=== PATIENT | male | born 1960 | race Caucasian/White ===

== ENCOUNTER 2017-10-03 19:28 | Emergency (ER) | payer OTHER, SELFPAY ==
[2017-10-03 19:30] VITALS: BP 162/110; PULSE 112; RESP 28; TEMP 37.2; O2SAT 97; BMI 25.3
--- NOTE | 2017-10-03 19:32 | ED.RN ---
RN CALLED FOR EKG, NO OLD EKGS IN MUSE
[2017-10-03 19:59] VITALS: O2SAT 97
[2017-10-03 20:02] VITALS: PULSE 99; RESP 20; O2SAT 98
[2017-10-03] MEDS: Ipratropium/Albuterol Sulfate 3 ML AMPUL.NEB INHALATION (20:02)
[2017-10-03 20:04] VITALS: BP 146/116; PULSE 100; RESP 17; RESP 21; O2SAT 97; O2SAT 98
[2017-10-03 20:22] LABS: Absolute Lymphocyte Count 1.15 X10^3/ul (0.83-4.51); Absolute Neutrophil Count 7.1 X10^3/uL (2.0-7.7); Basophil# 0.04 X10^3/uL; Basophil% 0.4 % (0-1); Eosinophil# 0.05 X10^3/uL; Eosinophils% 0.5 % (0-5); Hematocrit 44.9 % (40-54); Hemoglobin 15.2 g/dl (13.0-16.5); Lymphocyte # 1.15 X10^3/ul (4.0); Lymphocyte % 12.6 % (19-41); Mean Corp Hgb Conc 33.9 g/gl (32-36); Mean Corpuscular Hgb 27.2 pg (27.0-32.0); Mean Corpuscular Volume 80.3 fL (80-94); Mean Platelet Vol. 10.3 fl (6.2-12.0); Monocyte# 0.73 X10^3/uL; Neutrophil # 7.11 X10^3/uL (2.7-7.7); Neutrophil % 78.2 % (47-70); POSITIVE COUNT NO; POSITIVE DIFFERENTIAL NO; POSITIVE MORPHOLOGY NO; Platelet Count 309 K/mm3 (150-450); RBC Distribution Width CV 15.3 % (11.6-14.6); RBC Distribution Width SD 44.5 fl (35.1-43.9); Red Blood Count 5.59 M/mm3 (4.6-6.2); White Blood Count 9.1 K/mm3 (4.4-11.0)
[2017-10-03 20:29] LABS: Anion Gap 12 (5-15); BUN 8 mg/dL (7-18); BUN/Creat Ratio 8.5 RATIO (10-20); Calcium,Total 8.9 mg/dL (8.5-10.1); Chloride 109 mmol/L (98-107); Creatinine, Serum 0.94 mg/dL (0.70-1.30); EST Glomerular Filtration Rate 88 mL/min (>60); Est Glom Filt Rate - Afr Amer 106 mL/min (>60); Estimated Creatinine Clearance 81.06 ml/min; Glucose 160 mg/dL (74-106); Potassium 4.2 mmol/L (3.5-5.1); Sodium Level 142 mmol/L (136-145)
[2017-10-03] MEDS: 0.9% Normal Saline 1,000 ML 999 ML IV (20:55)
[2017-10-03] MEDS: MethylPREDNISolone 125 MG/2 ML Vial IV (20:55)
--- NOTE | 2017-10-03 21:27 | ED.DCSUM_ITS ---
- ER Visit Summary Date of Service: 10/03/17 Chief Complaint: Shortness of breath History of Present Illness: The patient is a [address] Rondon. He denies a history of COPD, but he does smoke a pack per day for many years. He reports he has shortness of breath began approximately 10 days ago. Is severe at worst moderate currently. Is worsened by exertion and laying flat. He has a cough is productive white/clear sputum. He denies any fever or chills. Reports he is less sided chest pain that is intermittent and lasts seconds at a time. Physical Examination: Vitals: Stable. Afebrile. General: Well-nourished and well-developed. Head: Normocephalic atraumatic. Neck: Supple, no lymphadenopathy. No JVD. Nontender. Cardiovascular: Regular rate and rhythm. No murmurs. Respiratory: No respiratory distress. Mild wheezing bilaterally with greatly decreased air movement. Abdominal: Soft, nontender, nondistended, normal bowel sounds. No guarding, rebound, or peritoneal signs. Back: Nontender. Extremities: Nontender, no edema. Skin: Normal color, no rash. Neurologic: Alert and oriented ?3. Cranial nerves II through XII are intact. Normal strength and sensation. Psych: Normal affect. Test Results: Chest x-ray shows chronic interstitial changes. EKG is sinus tach [address] changes. CBC is more for segment for 70 lymphs at 13. Chem-7 more for quite a 109 glucose 160. Emergency Department Course and Treatment: Patient was treated albuterol Atrovent aerosols with great relief of his dyspnea. He was given Solu-Medrol IV and doxycycline p.o. Treatment Plan: Clinically I believe the patient has COPD. He will be treated as a COPD flare. He will be discharged on albuterol MDI and a prednisone taper. Placed on doxycycline instructed follow-up his primary care physician 3- 5 days not improving. Return to the emergency department for any worsening symptoms. Disposition: To home in improved and stable condition. Impression: 1. COPD exacerbation. This note was generated with [employer] dictation software. It may contain incorrect words, spelling, and punctuation that were not noted in review of the chart prior to signing ED Disposition - Plan for ED Patient: Disposition: Home or Assisted Living Chief Complaint: Shortness of Breath Instructions: ED Upper Resp Infec Abx Tx Prescriptions: Prednisone 10 mg PO DAILY #63 tablet Doxycycline Monohydrate 100 mg PO BID #14 capsule Referrals: Kojo Rondon MD [NON-STAFF] - 3-5 Days if not improving
[2017-10-03] MEDS: Doxycycline 100 MG CAPSULE PO (22:07)
[2017-10-03] MEDS: INHALER, ASSIST DEVICES 1 EACH SPACER INHALATION (22:08)
[2017-10-03 22:12] VITALS: BP 148/11; BP 148/111; PULSE 95; PULSE 98; RESP 23; O2SAT 97
== END 2017-10-03 22:10 | disposition home or self-care (01) ==
PROVIDERS: Emergency Provider Emergency Medicine
DX: J44.1 Chronic obstructive pulmonary disease with (acute) exacerbation (principal); F17.200 Nicotine dependence, unspecified, uncomplicated; I10 Essential (primary) hypertension
CPT/HCPCS: 71045; 80048; 85025; 93005; 94640; 96361; 96374; 99284; J7030; A4216

== ENCOUNTER 2017-11-19 20:41 | Inpatient (IN) | payer OTHER, SELFPAY ==
[2017-11-19 20:43] VITALS: BP 140/105; PULSE 88; RESP 24; TEMP 36.7; O2SAT 92; BMI 25.0
--- NOTE | 2017-11-19 21:01 | EKG12_ITS ---
Test Reason : SOB Blood Pressure : / mmHG Vent. Rate : 082 BPM Atrial Rate : 082 BPM P-R Int : 140 ms QRS Dur : 102 ms QT Int : 420 ms P-R-T Axes : 080 000 133 degrees QTc Int : 490 ms Normal sinus rhythm Possible Left atrial enlargement Cannot rule out Anterior infarct , age undetermined T wave abnormality, consider lateral ischemia Abnormal ECG Confirmed by YARELI DURAN, PHILIP ([id number]), editor at large JEYSON GUTIERREZ ([id number]) on 11/24/2017 3:58:22 PM Referred By: DANG Confirmed By:PHILIP DOWNS MD
--- NOTE | 2017-11-19 21:25 | RAD_ITS ---
STUDY: X-RAY CHEST REASON FOR EXAM: Male, 57 years old. SOB, bloating. TECHNIQUE: PA and lateral chest. COMPARISON: 10/03/2017. FINDINGS: The lungs are clear and expanded. There is a small right pleural effusion. There is mild cardiac enlargement. Normal mediastinum and yeni. Normal visualized pulmonary arteries. Normal visualized aortic arch and descending thoracic aorta. Normal visualized thoracic spine. Normal visualized ribs, clavicles, and shoulders. There is no demonstrated abnormality of the visualized soft tissue structures of the upper abdomen. RAD/Chest PA and Lateral IMPRESSION: Small right pleural effusion. Otherwise, no acute process. Electronically Signed: Jodi Upton MD at 21:53 EDT Tel , Service support ,
[2017-11-19 21:47] VITALS: O2SAT 97
--- NOTE | 2017-11-19 22:20 | CT_ITS ---
STUDY: CT ABDOMEN AND PELVIS WITH CONTRAST REASON FOR EXAM: Male, 57 years old. Upper abdominal pain. Short of breath. RADIATION DOSAGE (If Supplied By Facility): CTDIvol = ( 24.27 ) mGy, DLP = ( 1103.54 ) mGycm TECHNIQUE: Transaxial images were obtained from the dome of the diaphragm to the symphysis pubis without oral contrast. 100ML ml of Isovue 300 contrast was administered. Sagittal and coronal images were reconstructed. Individualized dose optimization techniques were used for this CT. COMPARISON: None. FINDINGS: Limited views through the lower chest show small right pleural effusion. Mild atelectasis is seen in both posterior lung bases. There is slus-ki-paxyzvvw cardiomegaly. There is ascites in all quadrants of moderate quantity. Possible fatty infiltration of the liver. There is hepatomegaly. There are no definite focal masses. Moderate distention of the gallbladder. No stones. Mild gallbladder wall thickening. Prominent pericholecystic edema. Normal pancreas. Normal spleen. Adrenal glands within normal limits. No acute abnormality of the kidneys. No definite stones. No hydronephrosis. Symmetric contrast enhancement. Evaluation of the GI tract is limited by absence of oral contrast. Cannot exclude stomach wall thickening. No dilated loops of bowel or evidence for obstruction. Cannot exclude segmental thickening of the dempsey of the small or large bowel. Cannot exclude enteritis or colitis. Moderate diffuse fecal retention. Diverticulosis without definite diverticulitis. Appendix within normal limits. There is diffuse atherosclerotic calcification of the abdominal aorta, without a demonstrated aneurysm. Normal inferior vena cava. There is borderline retroperitoneal lymphadenopathy with enlarged nodes no greater than 10mm in the short axis diameter. Possible diffuse thickening of the wall of the urinary bladder. There is enlargement of the prostate gland. Anasarca of the abdominal wall. There are diffuse degenerative changes of the visualized lumbar spine. CT/Abdomen/Pelvis W IV Cont ONLY IMPRESSION: Moderate diffuse ascites. Hepatomegaly. Suboptimal evaluation of the GI tract without oral contrast. Cannot exclude enteritis or colitis. Small right pleural effusion. Electronically Signed: Ramos Chen MD at 23:29 EDT , Service support ,
[2017-11-19 22:33] LABS: Absolute Lymphocyte Count 0.94 X10^3/ul (0.83-4.51); Absolute Neutrophil Count 7.2 X10^3/uL (2.0-7.7); Basophil# 0.04 X10^3/uL; Basophil% 0.4 % (0-1); Eosinophil# 0.02 X10^3/uL; Eosinophils% 0.2 % (0-5); Hematocrit 49.3 % (40-54); Hemoglobin 16.1 g/dl (13.0-16.5); Lymphocyte # 0.94 X10^3/ul (4.0); Lymphocyte % 10.5 % (19-41); Mean Corp Hgb Conc 32.7 g/gl (32-36); Mean Corpuscular Hgb 26.4 pg (27.0-32.0); Mean Corpuscular Volume 80.8 fL (80-94); Mean Platelet Vol. 10.6 fl (6.2-12.0); Monocyte# 0.63 X10^3/uL; Monocyte% 7.1 % (0-10); Neutrophil % 80.7 % (47-70); Platelet Count 327 K/mm3 (150-450); RBC Distribution Width CV 17.2 % (11.6-14.6); RBC Distribution Width SD 49.3 fl (35.1-43.9); White Blood Count 8.9 K/mm3 (4.4-11.0)
[2017-11-19 22:35] LABS: POSITIVE COUNT NO; POSITIVE DIFFERENTIAL NO; POSITIVE MORPHOLOGY NO
[2017-11-19 22:41] VITALS: O2SAT 97
[2017-11-19 22:51] LABS: ALB/GLOB Ratio 1.1 RATIO (0.9-2.4); AST(SGOT) 61 U/L (15-37); Alanine Aminotransfer ALT/SGPT 64 U/L (16-61); Albumin, Serum 3.4 g/dL (3.2-5.0); Alkaline Phosphatase 95 U/L (45-117); Anion Gap 9 (5-15); BUN 18 mg/dL (7-18); BUN/Creat Ratio 11.5 RATIO (10-20); Calcium,Total 8.2 mg/dL (8.5-10.1); Chloride 107 mmol/L (98-107); Creatinine, Serum 1.56 mg/dL (0.70-1.30); EST Glomerular Filtration Rate 49 mL/min (>60); Est Glom Filt Rate - Afr Amer 59 mL/min (>60); Estimated Creatinine Clearance 48.85 ml/min; Globulin 3.1 g/dL (2.2-4.2); Glucose 127 mg/dL (74-106); Lipase 90 U/L (73-393); Potassium 4.5 mmol/L (3.5-5.1); Protein, Total 6.5 g/dL (6.4-8.2); Sodium Level 138 mmol/L (136-145); Thyroid Stim Hormone (TSH) 3.16 uIU/mL (0.358-3.74)
[2017-11-19 23:15] VITALS: BP 135/100; PULSE 87; RESP 21; O2SAT 99
[2017-11-19] MEDS: Furosemide 40 MG/4 ML Vial IV (23:19)
--- NOTE | 2017-11-19 23:25 | ED.DCSUM_ITS ---
- ER Visit Summary Date of Service: 11/19/17 Chief Complaint: [Shortness of breath] History of Present Illness: The patient is a 57 M [presents the emergency department complaint of shortness of breath that he said for over 3 months. Patient states that he does have a cough that he sat chronically but he is a smoker. Patient also describes abdominal distention and bloating. Patient describes ankle swelling. Patient apparently oftentimes will sleep in a chair because he has a hard time laying flat. Patient states that he wakes up after an hour or 2 feeling short of breath frequently. Patient complains of exertional dyspnea. He denies any chest pain. He denies recent travel or surgery. He has not had fevers.] Physical Examination: [HEENT-PERRLA, EOMI. Cranial nerves II through XII grossly intact. TMs clear. Mucous membranes moist. No adenopathy. She does have JVD Cardiovascular-regular rate and rhythm without murmur or ectopy Lungs-breath sounds bilaterally. Patient has rales in both bases. No accessory muscle use or retractions. Abdomen-normoactive bowel sounds. Patient has distention and fluid wave noted. Mild diffuse tenderness. There is no rebound, rigidity, or perineal signs. Extremities-intact ?4, normal range of motion, normal pulses, atraumatic]. Patient has +2 edema both lower extremities. Patient does have cellulitis of the right lower extremity from below the knee down to the foot. He is neurovascular intact. Test Results: [EKG obtained on arrival shows sinus rhythm with a ventricular rate of 82 bpm with left atrial enlargement and nonspecific ST changes noted laterally. CBC with differential obtained showed a white count of 8.9, hemoglobin 16, hematocrit 49, platelets 327. Chemistries unremarkable. Liver enzymes showed slight elevation in ALT at 64 and AST at 61. TSH was 3.16. Lactic acid was 2.0. Troponin was elevated slightly at 0.057 and his BNP was 1591. Chest x-ray obtained showed a small right pleural effusion and cardiomegaly. CT scan of the abdomen and pelvis awaiting official report from radiology but the patient is noted to have ascites] Emergency Department Course and Treatment: [She was started on Lasix 40 mg IV.] Patient was started on Unasyn 3 g IV Treatment Plan: [Admit] Disposition: [Admit for further workup and evaluation] Impression: [CHF-new onset Cellulitis right lower extremity] Non-ST KS This note was generated with [employer] dictation software. It may contain incorrect words, spelling, and punctuation that were not noted in review of the chart prior to signin ED Disposition - Plan for ED Patient: Chief Complaint: Shortness of Breath Referrals: Kojo Rondon MD [Primary Care Provider] -
--- NOTE | 2017-11-19 23:36 | HP.PCM_ITS ---
Problem List (1) Shortness of breath Status: Acute (2) Lower extremity edema Status: Acute (3) Bilateral lower extremity edema Status: Acute History of Present Illness Date of Admission: 11/20/17 Chief Complaint: Shortness of breath, bilateral lower extremity edema. The patient is a 57 year old M was admitted through the ED on 11/19/2017 with a complaint of worsening shortness of breath for the past 3 months and lower extremity swelling for the past month. Shortness of breath had progressively been getting worse, with associated orthopnea and PND. His lower extremity swelling which started K[place] have progressively gotten worse and he was having difficulty with getting out of his chair to walk around. He had associated exertional dyspnea as well. Patient also complained of abdominal distention and significant epigastric pain which she attributed to gas and was sometimes relieved by having a bowel movement. He denied any fever or chills and denied any chest pain, recent travel or surgery or any history of DVT or PE. EKG done in the ED showed normal sinus rhythm with left atrial enlargement and T wave inversions in the lateral leads. CBC was unremarkable and chemistries were unremarkable. BNP was thousand 591 and troponin was slightly elevated at 0.057. Chest x-ray done showed small right pleural effusion and cardiomegaly and chest CT of the abdomen and pelvis showed ascites and hepatomegaly as well as a small right pleural effusion. He has been admitted to be managed for new onset CHF exacerbation.. [] Past Medical History Allergies No Known Allergies Allergy (Verified 11/19/17 20:44) Home Medications: Ambulatory Orders Medication Instructions Recorded Aspirin [Aspirin EC] 3 tab PO DAILY PRN 11/19/17 Metoprolol Tartrate [Lopressor 0.5 tablet PO DAILY 11/19/17 (beta agapito)] Surgical History: no surgical history Psychiatric History: No pertinent psych hx Lives: Spouse/ Significant Other Smoking Status: Current every day smoker Tobacco Use: Cigarettes - 2 packs daily Alcohol: Occasional Drugs: Marijuana - *Family History Maternal History Items: Heart Disease Paternal History Items: Cancer, Heart Disease, Hypertension Review of Systems Constitutional: Denies: Chills, Fever, Malaise, Weight Change Eyes: Denies: Blurred vision HEENT: Denies: Head Aches, Sinus Congestion, Sinus Drainage Cardiovascular: Reports: Edema, Orthopnea, Paroxysmal Noc. Dyspnea. Denies: Chest Pain, Chest Pressure, Chest Tightness, Palpitations, Syncope Respiratory: Reports: Shortness of Breath, Shortness of breath at rest, Shortness of breath upon exertion. Denies: Cough, Hemoptysis, Pleuritic Pain, Sputum production, Wheezing Gastrointestinal: Reports: Abdominal Pain. Denies: Constipation, Diarrhea, Dyspepsia, Hematemesis, Nausea, Vomiting Genitourinary: Denies: Dysuria Musculoskeletal: Denies: Joint Pain, Joint Tenderness Skin: Denies: Rash, Wounds Neurological: Denies: Numbness, Tingling, Focal weakness Psychiatric: Denies: Anxiety, Depression, Homicidal Ideations, Suicidal Ideations Hematologic/ Lymphatic: Denies: Easy Bruising, Easy Bleeding VTE Information - Inpt Only VTE Present on Admission: No VTE Mechan Device Prophylaxis: None VTE Pharm Prophylaxis ordered?: Yes Patient Problems: Active and Suspected Problems Shortness of breath (Acute) Lower extremity edema (Acute) Bilateral lower extremity edema (Acute) - Physical Exam General: Alert, Oriented x3, Cooperative, No apparent distress HEENT: Atraumatic, PERRLA, EOMI, Normocephalic Oral: Moist Mucosa Neck: Supple, Negative Carotid Bruits, JVD, Right Lungs: - - Diminished breath sounds in all lung garrido. Mild bilateral coarse cr ackles in mid and lower lung garrido Cardiovascular: Regular rate, Regular Rhythm, Normal S1, Normal S2, No murmurs Abdomen: Bowel Sounds Present, Soft, Non-Distended, No Hepato-splenomegaly, - - mild generalised tenderness, no guarding or rebound tenderness. Extremities: - - 2+ bilateral LE pitting pedal edema. Skin: No breakdown, - - erythematous, maculopapular rash on mack of RLE; not tender, no differential warmth Musculoskeletal: No Tenderness to Palpation of Joints or Extremities Lymphatic: No Cervical, Supraclavicular, or Inguinal Adenopathy Neurological: Cranial nerves II-XII grossly intact, Neuro grossly intact, Motor Exam 5/5 strength throughout Psych/Mental Status: Normal Affect, Appropriate, Alert and oriented to time, place, person, mood and affect Vital Signs Temp Pulse Resp BP Pulse Ox 98.0 F 87 21 H 135/100 H 99 11/19/17 20:43 11/19/17 23:15 11/19/17 23:15 11/19/17 23:15 11/19/17 23:15 Oxygen Delivery Method Room Air Weight: 160 lb Body Mass Index (BMI) 25.0 Laboratory Tests Past 24 Hrs 11/19/17 11/19/17 11/19/17 21:40 21:40 21:40 WBC 8.9 RBC 6.10 Hgb 16.1 Hct 49.3 MCV 80.8 MCH 26.4 L MCHC 32.7 RDW 17.2 H RDW Differential 49.3 H Plt Count 327 MPV 10.6 Immature Gran % (Auto) 1.100 H Neut % (Auto) 80.7 H Lymph % (Auto) 10.5 L [place] % (Auto) 7.1 Eos % (Auto) 0.2 Baso % (Auto) 0.4 Absolute Neuts (auto) 7.2 Absolute Lymphs (auto) 0.94 Total Counted Not Reportable Sodium 138 Potassium 4.5 Chloride 107 Carbon Dioxide 22.0 Anion Gap 9 BUN 18 Creatinine 1.56 H Estim Creat Clear Calc 48.85 Est GFR (MDRD) Af Amer 59 L Est GFR (MDRD) Non-Af 49 L BUN/Creatinine Ratio 11.5 Glucose 127 H Lactic Acid Calcium 8.2 L Total Bilirubin 0.80 AST 61 H ALT 64 H Alkaline Phosphatase 95 Troponin I 0.057 H B-Natriuretic Peptide 1591.3 H Total Protein 6.5 Albumin 3.4 Globulin 3.1 Albumin/Globulin Ratio 1.1 Lipase 90 TSH 3.16 11/19/17 22:30 WBC RBC Hgb Hct MCV MCH MCHC RDW RDW Differential Plt Count MPV Immature Gran % (Auto) Neut % (Auto) Lymph % (Auto) [place] % (Auto) Eos % (Auto) Baso % (Auto) Absolute Neuts (auto) Absolute Lymphs (auto) Total Counted Sodium Potassium Chloride Carbon Dioxide Anion Gap BUN Creatinine Estim Creat Clear Calc Est GFR (MDRD) Af Amer Est GFR (MDRD) Non-Af BUN/Creatinine Ratio Glucose Lactic Acid 2.0 Calcium Total Bilirubin AST ALT Alkaline Phosphatase Troponin I B-Natriuretic Peptide Total Protein Albumin Globulin Albumin/Globulin Ratio Lipase TSH Diagnostic Data Chest X-Ray 11/19/17 21:25 IMPRESSION: Small right pleural effusion. Otherwise, no acute process. Electronically Signed: Jodi Upton MD at 21:53 EDT Tel , Service support , Abdomen/Pelvis CT 11/19/17 22:20 IMPRESSION: Moderate diffuse ascites. Hepatomegaly. Suboptimal evaluation of the GI tract without oral contrast. Cannot exclude enteritis or colitis. Small right pleural effusion. Electronically Signed: Ramos Chen MD at 23:29 EDT , Service support , Assessment/Plan All Active Problems Shortness of breath (Acute) Lower extremity edema (Acute) Bilateral lower extremity edema (Acute) 57-year-old male presenting with a 3-month history of worsening shortness of breath in 1 month history of worsening lower extremity edema. 1. New onset CHF exacerbation, of unknown EF * BNP elevated at ~ 1500 * CXR showed small right pleural effusion; abdominal CT showed diffuse ascites and hepatomegaly * admit to PCU with telemetry * IV Lasix 40 mg twice daily. * Raffaele wraps to lower extremities. * 2D echo tomorrow * Cardiology consult * Start lisinopril low-dose. To start metoprolol once acute phase is over. * check TSH 2. NSTEMI * Troponin was 0.057->0.051. EKG showed T wave inversions in lateral leads. * We will cycle troponins. Sublingual nitroglycerin as needed. P.o. aspirin 81 mg daily. Check lipid panel. * Cardiology consult. * * 3.Rash on RLE * Was given IV Unasyn in the ED as they thought it might be cellulitis. However I really do not think that this is cellulitis as it is an erythematous rash but is nontender, and has no differential warmth. It appears like he may be more of an allergic rash. * Will withhold antibiotics for now and apply steroid cream to monitor for resolution. * 4. Hypertension: * States he is noncompliant with his medication. On metoprolol 50mg daily. * With hold metoprolol in light of new onset CHF exacerbation and started once acute phase is over. * DVT Prophylaxis: Heparin Code Status: Full code. * Patient counseled about different types of CODE STATUS and counseled about differences between full code, DNR CC and DNR CCA. Patient elects to be full code. Total [id number] time 17 minutes. Code Visit Inpatient E&M: 85154 Init Hosp L3 Procedures: 92665 Advncd Care Plan 30 Min
[2017-11-19 23:42] LABS: Red Blood Cells-Urine 0 SEEN /hpf (0-5)
[2017-11-19] MEDS: Morphine 4 MG/ML Syringe IV (23:49)
[2017-11-19] MEDS: Aspirin 81 MG TAB.CHEW PO (23:49)
[2017-11-19 23:50] VITALS: BP 146/111; PULSE 92
[2017-11-19] MEDS: Nitroglycerin Oint 1 INCH PACKET TRANSDERM. (23:50)
[2017-11-19] MEDS: Ondansetron 4 MG/2 ML Vial IV (23:50)
[2017-11-19 23:58] LABS: Color, Urine Yellow (Yellow); Glucose, Dipstick Normal (Normal); Ketone-Dipstick 5 mg/dl (Negative); Leukocyte Esterase-Dipstick 25 /ul (Negative); Nitrite-Dipstick Negative (Negative); Occult Blood-Urine 10 /ul (Negative); Protein-Dipstick 100 mg/dl (Negative); Urine Clarity Sl. Cloudy (Clear); Urine Urobilinogen 4 mg/dl (Normal)
[2017-11-20] VITALS (14 sets, daily range): BP systolic 100–139; BP diastolic 58–95; PULSE 81–112; RESP 16–18; TEMP 36.5–37.2; O2SAT 92–96; BMI 29.3
[2017-11-20] LABS: Urine Bilirubin Dipstick 1 mg/dL (Negative)
[2017-11-20 00:07] LABS: Bacteria RARE /hpf (None Seen); Hyaline Cast 5-10 SEEN /lpf (0-5); Mucous, Urine 1+ /hpf (<or=2+); Squamous Epithelial Cells - UA 0-5 SEEN /hpf (0-5); White Blood Cells 0-5 SEEN /hpf (0-5)
[2017-11-20 02:31] LABS: Reflex Lactate? Y
[2017-11-20 02:31] LABS: Thyroid Stim Hormone (TSH) 2.75 uIU/mL (0.358-3.74)
[2017-11-20 02:34] LABS: Lactic Acid 1.4 mmol/L (0.4-2.0)
[2017-11-20 07:21] LABS: Absolute Lymphocyte Count 1.36 X10^3/ul (0.83-4.51); Absolute Neutrophil Count 5.8 X10^3/uL (2.0-7.7); Basophil# 0.04 X10^3/uL; Basophil% 0.5 % (0-1); Eosinophil# 0.03 X10^3/uL; Eosinophils% 0.4 % (0-5); Hematocrit 45.4 % (40-54); Hemoglobin 14.5 g/dl (13.0-16.5); Lymphocyte # 1.36 X10^3/ul (4.0); Lymphocyte % 16.9 % (19-41); Mean Corp Hgb Conc 31.9 g/gl (32-36); Mean Corpuscular Hgb 25.8 pg (27.0-32.0); Mean Corpuscular Volume 80.9 fL (80-94); Mean Platelet Vol. 10.4 fl (6.2-12.0); Monocyte# 0.83 X10^3/uL; Monocyte% 10.3 % (0-10); Neutrophil # 5.75 X10^3/uL (2.7-7.7); Neutrophil % 71.4 % (47-70); POSITIVE COUNT NO; POSITIVE DIFFERENTIAL NO; POSITIVE MORPHOLOGY NO; Platelet Count 305 K/mm3 (150-450); RBC Distribution Width CV 16.9 % (11.6-14.6); RBC Distribution Width SD 49.2 fl (35.1-43.9); Red Blood Count 5.61 M/mm3 (4.6-6.2); White Blood Count 8.1 K/mm3 (4.4-11.0)
[2017-11-20 07:41] LABS: Anion Gap 9 (5-15); BUN 19 mg/dL (7-18); BUN/Creat Ratio 13.5 RATIO (10-20); Calcium,Total 8.1 mg/dL (8.5-10.1); Chloride 111 mmol/L (98-107); Cholesterol 100 mg/dL (200); Creatinine, Serum 1.41 mg/dL (0.70-1.30); EST Glomerular Filtration Rate 55 mL/min (>60); Est Glom Filt Rate - Afr Amer 66 mL/min (>60); Estimated Creatinine Clearance 55.92 ml/min; Glucose 92 mg/dL (74-106); High Density Lipoprotein 28 mg/dL; Potassium 4.3 mmol/L (3.5-5.1); Sodium Level 144 mmol/L (136-145); Triglycerides 84 mg/dL; Very Low Density Lipoprotein 17 mg/dL (5-40)
[2017-11-20 07:55] LABS: Hemoglobin A1c 6.3 % (4.2-6.3)
--- NOTE | 2017-11-20 08:00 | ECHOCS_ITS ---
Reason For Study: CHF Procedure This was a 2D Doppler, Color Flow transthoracic echocardiogram. Contrast injection was performed. Exam performed portable in patient room. Left Ventricle Severely dilated left ventricle. The estimated ejection fraction is 10 %. Stage 2 diastolic dysfunction. There is severe global hypokinesis of the left ventricle. Right Ventricle Mildly dilated right ventricle. Normal systolic function. Atria The left atrium is severely enlarged. The right atrium is severely enlarged. Normal atrial septum. Mitral Valve The mitral valve is structurally normal. No prolapse or stenosis seen. Mild (1+) mitral valve insufficiency. Tricuspid Valve Normal tricuspid valve. Moderate (2+) tricuspid valve insufficiency. Right ventricular systolic pressure estimated to be 41 mmHg. Mild pulmonary hypertension. Aortic Valve Trisinus/trileaflet aortic valve. Mild focal aortic valve thickening. Trivial aortic valve insufficiency. Pulmonic Valve Normal pulmonic valve. Trivial pulmonic valve insufficiency. Great Vessels Normal aortic root. Normal arch. The inferior vena cava is dilated. Inferior vena cava collapse with sniff. Pericardium/Pleural No pericardial effusion. Medication Diluted definity 5.0ml given slow IV push to enhance endocardial definition. MMode/2D Measurements & Calculations LVIDd: 6.7 cm IVSd: 1.1 cm Ao root diam: 3.2 cm LVIDs: 6.2 cm LVPWd: 1.0 cm LA dimension: 5.2 cm RVDd: 3.8 cm FS: 8.0 % LAV(MOD-bp): 109.4 ml LAV(MOD-bp) Indexed: 54.5 ml/m2 LA A4 area: 27.4 cm2 RA A4 area: 25.2 cm2 LAV(MOD-sp2): 110.1 ml LAV(MOD-sp4): 104.1 ml Doppler Measurements & Calculations MV E max zuhair: 87.3 cm/sec Lat Peak E' Zuhair: 5.4 cm/sec Med Peak E' Zuhair: 3.8 cm/sec MV A max zuhair: 45.0 cm/sec E/E' lat: 16.2 E/E' med: 23.1 MV E/A: 1.9 Ao V2 max: 90.4 cm/sec LV V1 max: 80.9 cm/sec MR max zuhair: 429.7 cm/sec Ao max P.3 mmHg LV V1 max P.6 mmHg MR max P.9 mmHg MR mean zuhair: 338.3 cm/sec MR mean P.9 mmHg MR VTI: 129.8 cm PA V2 max: 51.1 cm/sec TR max zuhair: 253.7 cm/sec TR max P.1 mmHg Interpretation Summary Severely dilated left ventricle. The estimated ejection fraction is 10 %. There is severe global hypokinesis of the left ventricle. Stage 2 diastolic dysfunction. Mildly dilated right ventricle. The left atrium is severely enlarged. The right atrium is severely enlarged. Mild (1+) mitral valve insufficiency. Moderate (2+) tricuspid valve insufficiency. Right ventricular systolic pressure estimated to be 41 mmHg. Mild pulmonary hypertension. Trivial aortic valve insufficiency. The inferior vena cava is dilated There is no comparison study available. The study was technically difficult. Contrast injection was performed. Ordering Physician: Doreen Murguia Referring Physician: Michele Goode Performed By: Hemalatha Rodriguez RDCS, RVT
[2017-11-20] MEDS: 0.9% NaCl Peripheral Flush Adult/Peds IV ×2 (10:36→18:55)
[2017-11-20] MEDS: Lisinopril 5 MG Tablet PO (10:37)
[2017-11-20] MEDS: Furosemide 40 MG/4 ML Vial IV ×2 (10:37→18:55)
--- NOTE | 2017-11-20 11:41 | CASEMGMT ---
RN CM Assessment Intro role of CM to patient in room. Pt is sleepy, but awakens to answer questions.Will have heart cath this admission. PCP: Dr. Rondon Pharmacy: [facility] Prescription coverage: yes Living Arrangements: Pt states he lives with his and step daughter in law @ address given, but sister Ashley lives in [place]. DME: None, pt states he is independent, works and drives. Social Work Consult: No DC PLAN: Home, no needs identified.
--- NOTE | 2017-11-20 12:29 | PCM.CONS.C ---
Problem List (1) Congestive heart failure with LV diastolic dysfunction, NYHA class 3 Status: Acute (2) Shortness of breath Status: Acute (3) Bilateral lower extremity edema Status: Acute Reason for Consult Date of Consultation: 11/20/17 Reason for Consultation: New onset heart failure, severe LV dysfunction, lower extremity edema History of Present Illness: The patient is a 57 year old M who presents with worsening dyspnea on exertion, shortness of breath and lower extremity edema, starting approximately 2 months ago. While he was driving his car to work about 2 months ago he had severe upper GI and chest discomfort, with associated nausea and vomiting but did not seek medical advice. Ever since that time he has not felt well, and has had progressively worsening shortness of breath and dyspnea on exertion. In addition he complains of orthopnea and PND and is unable to lay down flat at this time. Patient sought medical attention at [facility] ER where he was found to have lower extremity edema, and pulmonary edema on chest x-ray as well as pleural effusion. He was also found to have ascites on CT scan. He has been treated with IV diuretic therapy, aspirin, and low-dose lisinopril. Preliminary echocardiogram evaluation this morning shows severe global LV dysfunction with an EF around 10%. On further history the patient is a lifelong heavy alcohol user and drinks currently 2 whiskeys per day, used to drink much more heavily for about 45 years. Also currently smokes about 1 pack/day for the past 40 years. He has no known cardiac history and has never had a catheterization or a CVA. Patient has a brother with a previous stroke. Patient denies any history of alcohol withdrawal, DTs. He has been off alcohol for several months without complication in the past.. [] Past Medical History Allergies/Adverse Reactions: Allergies No Known Allergies Allergy (Verified 11/19/17 20:44) Home Medications: Ambulatory Orders Medication Instructions Recorded Aspirin [Aspirin EC] 3 tab PO DAILY PRN 11/19/17 Metoprolol Tartrate [Lopressor 0.5 tablet PO DAILY 11/19/17 (beta agapito)] Surgical History: no surgical history Psychiatric History: No pertinent psych hx - *Family History Maternal History Items: Heart Disease Paternal History Items: Cancer, Heart Disease, Hypertension Lives: Spouse/ Significant Other Smoking Status: Current every day smoker Tobacco Use: Cigarettes Alcohol: Occasional Drugs: Marijuana Review of Systems - Review of Systems General: Denies: Fever, Night Sweats, Fatigue Cardiovascular: Reports: Shortness of Breath, Orthopnea, PND, Peripheral Edema. Denies: Chest Discomfort, Palpitations, Lightheadedness, Dizziness, Near Syncope, Syncope Respiratory: Denies: Cough, Sputum Production, Hemoptysis Gastrointestinal: Denies: Hematemesis, Hematochezia, Melena Genitourinary: Denies: Dysuria, Hematuria Skin: Denies: Rash Subjectve: Patient sitting up at the side of the bed, no acute distress. Answers questions appropriately. Objective: Vital Signs Temp Pulse Resp BP Pulse Ox 98.3 F 92 18 139/91 H 92 11/20/17 10:28 11/20/17 11:03 11/20/17 10:28 11/20/17 10:28 11/20/17 10:28 Oxygen Delivery Method Room Air Weight: 192 lb 10.944 oz Body Mass Index (BMI) 29.3 Intake and Output for Last 24 Hours 11/18/17 11/19/17 11/20/17 23:59 23:59 23:59 Intake Total 220 / 220 Output Total 300 / 300 Balance -80 / -80 General: Awake, Alert, Oriented x 3 HEENT: PERRL, EOMI, Sclera Non Icteric Neck: Supple, Good ROM, No Lymph Node Enlargement Lungs: Clear to auscultation, Rales - Right Base, Dullness to Percussion-Right Cardiovascular: Regular Rhythm, Normal S1, Normal S2, No Rubs, No Gallops Murmur Murmur: Grade 2/6, Holosystolic Vascular: No Carotid Bruits, Normal Femoral Pulses, Normal Radial Pulses, Normal Dorsalis Pedal Pulse, Normal Posterior Tibial Pulses Abdomen: Bowel Sounds Present, Soft, Non Tender, No HSM, No Organomegaly Extremities: No Cyanosis, No Clubbing, Bilateral Edema +2 Neurological: No Focal Motor or Sensory Deficit 11/19/17 21:40: WBC 8.9, RBC 6.10, Hgb 16.1, Hct 49.3, MCV 80.8, MCH 26.4 L, MCHC 32.7, RDW 17.2 H, RDW Differential 49.3 H, Plt Count 327, MPV 10.6, Immature Gran % (Auto) 1.100 H, Neut % (Auto) 80.7 H, Lymph % (Auto) 10.5 L, [place] % (Auto) 7.1, Eos % (Auto) 0.2, Baso % (Auto) 0.4, Absolute Neuts (auto) 7.2, Total Counted Not Reportable 11/19/17 21:40: Sodium 138, Potassium 4.5, Chloride 107, Carbon Dioxide 22.0, Anion Gap 9, BUN 18, Creatinine 1.56 H, Est GFR (MDRD) Af Amer 59 L, Est GFR (MDRD) Non-Af 49 L, BUN/Creatinine Ratio 11.5, Glucose 127 H, Calcium 8.2 L, Total Bilirubin 0.80, Troponin I 0.057 H 11/19/17 21:40: B-Natriuretic Peptide 1591.3 H 11/19/17 22:30: Lactic Acid 2.0 11/19/17 23:35: Urine Color Yellow, Urine Clarity Sl. Cloudy, Urine pH 5.0, Ur Specific [place] 1.020, Urine Protein 100 H, Urine Glucose (UA) Normal, Urine Ketones 5 H, Urine Occult Blood 10 H, Urine Nitrite Negative, Urine Bilirubin 1 H, Urine Urobilinogen 4 H, Ur Leukocyte Esterase 25 H, Urine RBC 0 SEEN, Urine WBC 0-5 SEEN 11/20/17 00:15: Troponin I 0.051 H 11/20/17 00:15: Lactic Acid 1.4 11/20/17 03:50: Troponin I 0.048 H 11/20/17 07:00: WBC 8.1, RBC 5.61, Hgb 14.5, Hct 45.4, MCV 80.9, MCH 25.8 L, MCHC 31.9 L, RDW 16.9 H, RDW Differential 49.2 H, Plt Count 305, MPV 10.4, Immature Gran % (Auto) 0.500, Neut % (Auto) 71.4 H, Lymph % (Auto) 16.9 L, [place] % (Auto) 10.3 H, Eos % (Auto) 0.4, Baso % (Auto) 0.5, Absolute Neuts (auto) 5.8, Total Counted Not Reportable 11/20/17 07:00: Sodium 144, Potassium 4.3, Chloride 111 H, Carbon Dioxide 24.0, Anion Gap 9, BUN 19 H, Creatinine 1.41 H, Est GFR (MDRD) Af Amer 66, Est GFR (MDRD) Non-Af 55 L, BUN/Creatinine Ratio 13.5, Glucose 92, Calcium 8.1 L, Troponin I 0.044, Triglycerides 84, Cholesterol 100, LDL Cholesterol 55, VLDL Cholesterol 17, HDL Cholesterol 28 L 11/20/17 07:00: Hemoglobin A1c 6.3 Rhythm: EKG: Normal sinus rhythm with old anterior wall myocardial infarction anterior T wave inversion. ECHO: Pending Stress Test: Cardiac Cath: PCI: CT Surgery: Holter monitor: EPS: PPM: CXR: Chest CT Scan: Assessment/Plan 1. Congestive heart failure: The patient presents with signs and symptoms of newly diagnosed congestive heart failure starting approximately 2 months ago. He is a lifelong heavy alcohol user, and may have a combination of hypertension and alcohol induced cardiomyopathy. I recommend continuing IV Lasix 40 mg IV twice daily and attempt to diurese the patient gently with respect to his chronic renal insufficiency. Once he is able to lay down flat, would recommend he undergo a left and right heart catheterization, perhaps tomorrow. In addition would recommend discontinuation of lisinopril given his smoking history and switch him to Cozaar 25 mill grams p.o. twice daily for afterload reduction. Would recommend a 1500 cc fluid restriction as well. Would not recommend Aldactone at this time given the patient's chronic renal insufficiency. Had a long and thorough discussion regarding the patient's alcohol and tobacco abuse, and highly recommend he discontinue all substances at this time in order to avoid further damage to his heart. In anticipation of catheterization will continue baby aspirin and loaded with Plavix 3 mg x1 now followed by 75 mg a day. My hope is that we can perform catheterization tomorrow. Patient's pulmonary echocardiogram findings show severe LV dysfunction, the patient may require long-term anticoagulation therapy given his LV dysfunction and possible pulmonary hypertension. This may be problematic should the patient be found to have ascites or esophageal varices. This may also be problematic should the patient not stop drinking. 2. Tobacco abuse: Recommend the patient discontinue all tobacco and alcohol products. 3. Hyperlipidemia: His LDL is 55, his HDL is 28. Recommend holding off on statin based medication until after his catheterization to define his coronary anatomy. Caution must be used with statins given his history of alcohol abuse and possible liver issues. 4. Thank you very much for the opportunity to participate in the cardiac care of your patient. Consultation took place between 830 and 9 AM. Code Visit Inpatient E&M: 50586 Init Hosp L2
--- NOTE | 2017-11-20 12:58 | CASEMGMT ---
ELANA CM NOTE: Insurance review for in- network tertiary hospitals per [employer] Provider on-line directory the following are in-network: [facility], [place], [facility], [facility], [facility], [facility], [facility], [facility].
[2017-11-20] MEDS: Clopidogrel Bisulfate 300 MG Tablet PO (14:45)
--- NOTE | 2017-11-20 16:23 | PCM.PROGNOTE ---
Patient Problems: Active and Suspected Problems Shortness of breath (Acute) Lower extremity edema (Acute) Bilateral lower extremity edema (Acute) Congestive heart failure with LV diastolic dysfunction, NYHA class 3 (Acute) Subjective: Patient seen and examined today, I talked to him about undergoing cardiac catheterization tomorrow, he appeared not to understand exactly what it was, I asked him if he explained to his that he was undergoing a catheterization and he said no. I asked him to let nursing know when his comes in to visit him I would talk with her about the procedure. His echocardiogram today showed severe LV dysfunction with an EF of approximately 10%, there was mild pulmonary hypertension. - Physical Exam General: Alert, Oriented x3, Cooperative, No apparent distress, Well developed, Well nourished HEENT: Atraumatic, PERRLA, EOMI, Normocephalic Oral: Moist Mucosa Neck: Supple, No Nuchal Rigidity, Trachea Midline, Thyroid Normal Size and Texture Lungs: Clear to auscultation, Normal air movement, No rhonchi, No wheeze, No rales Cardiovascular: Regular rate, Regular Rhythm, Normal S1, Normal S2, No murmurs, No Ectopic Activity, PMI Normal, No rub noted, No Gallop Abdomen: Bowel Sounds Present, Soft, Non Tender, Distended Extremities: Capillary Refill Less than 3 Seconds, Edema - There is generalized edema noted to both lower extremities along with stasis dermatitis changes noted over the right lower leg Skin: No breakdown, Rash Present - Stasis dermatitis changes are noted over the right lower leg Neurological: Cranial nerves II-XII grossly intact, Neuro grossly intact, Sensory exam intact to light touch and pain, Coordination normal Psych/Mental Status: Normal Affect, Appropriate, Alert and oriented to time, place, person, mood and affect Vital Signs Temp Pulse Resp BP Pulse Ox 99 F 95 16 100/67 96 11/20/17 16:22 11/20/17 16:22 11/20/17 16:22 11/20/17 16:22 11/20/17 16:22 Oxygen Delivery Method Room Air Weight: 87.4 kg Body Mass Index (BMI) 29.3 Intake and Output for Last 24 Hours 11/18/17 11/19/17 11/20/17 23:59 23:59 23:59 Intake Total 460 / 460 Output Total 2200 / 2200 Balance -1740 / -1740 Laboratory Tests Past 24 Hrs 11/19/17 11/19/17 11/19/17 21:40 21:40 21:40 WBC 8.9 RBC 6.10 Hgb 16.1 Hct 49.3 MCV 80.8 MCH 26.4 L MCHC 32.7 RDW 17.2 H RDW Differential 49.3 H Plt Count 327 MPV 10.6 Immature Gran % (Auto) 1.100 H Neut % (Auto) 80.7 H Lymph % (Auto) 10.5 L [place] % (Auto) 7.1 Eos % (Auto) 0.2 Baso % (Auto) 0.4 Absolute Neuts (auto) 7.2 Absolute Lymphs (auto) 0.94 Total Counted Not Reportable Sodium 138 Potassium 4.5 Chloride 107 Carbon Dioxide 22.0 Anion Gap 9 BUN 18 Creatinine 1.56 H Estim Creat Clear Calc 48.85 Est GFR (MDRD) Af Amer 59 L Est GFR (MDRD) Non-Af 49 L BUN/Creatinine Ratio 11.5 Glucose 127 H Hemoglobin A1c Lactic Acid Calcium 8.2 L Total Bilirubin 0.80 AST 61 H ALT 64 H Alkaline Phosphatase 95 Troponin I 0.057 H B-Natriuretic Peptide 1591.3 H Total Protein 6.5 Albumin 3.4 Globulin 3.1 Albumin/Globulin Ratio 1.1 Triglycerides Cholesterol LDL Cholesterol VLDL Cholesterol HDL Cholesterol Lipase 90 TSH 3.16 Urine Color Urine Clarity Urine pH Ur Specific [place] Urine Protein Urine Glucose (UA) Urine Ketones Urine Occult Blood Urine Nitrite Urine Bilirubin Urine Urobilinogen Ur Leukocyte Esterase Urine RBC Urine WBC Ur Squamous Epith Cells Urine Bacteria Hyaline Casts Urine Mucus 11/19/17 11/19/17 11/20/17 22:30 23:35 00:15 WBC RBC Hgb Hct MCV MCH MCHC RDW RDW Differential Plt Count MPV Immature Gran % (Auto) Neut % (Auto) Lymph % (Auto) [place] % (Auto) Eos % (Auto) Baso % (Auto) Absolute Neuts (auto) Absolute Lymphs (auto) Total Counted Sodium Potassium Chloride Carbon Dioxide Anion Gap BUN Creatinine Estim Creat Clear Calc Est GFR (MDRD) Af Amer Est GFR (MDRD) Non-Af BUN/Creatinine Ratio Glucose Hemoglobin A1c Lactic Acid 2.0 Calcium Total Bilirubin AST ALT Alkaline Phosphatase Troponin I 0.051 H B-Natriuretic Peptide Total Protein Albumin Globulin Albumin/Globulin Ratio Triglycerides Cholesterol LDL Cholesterol VLDL Cholesterol HDL Cholesterol Lipase TSH 2.75 Urine Color Yellow Urine Clarity Sl. Cloudy Urine pH 5.0 Ur Specific [place] 1.020 Urine Protein 100 H Urine Glucose (UA) Normal Urine Ketones 5 H Urine Occult Blood 10 H Urine Nitrite Negative Urine Bilirubin 1 H Urine Urobilinogen 4 H Ur Leukocyte Esterase 25 H Urine RBC 0 SEEN Urine WBC 0-5 SEEN Ur Squamous Epith Cells 0-5 SEEN Urine Bacteria RARE Hyaline Casts 5-10 SEEN Urine Mucus 1+ 11/20/17 11/20/17 11/20/17 00:15 03:50 07:00 WBC 8.1 RBC 5.61 Hgb 14.5 Hct 45.4 MCV 80.9 MCH 25.8 L MCHC 31.9 L RDW 16.9 H RDW Differential 49.2 H Plt Count 305 MPV 10.4 Immature Gran % (Auto) 0.500 Neut % (Auto) 71.4 H Lymph % (Auto) 16.9 L [place] % (Auto) 10.3 H Eos % (Auto) 0.4 Baso % (Auto) 0.5 Absolute Neuts (auto) 5.8 Absolute Lymphs (auto) 1.36 Total Counted Not Reportable Sodium Potassium Chloride Carbon Dioxide Anion Gap BUN Creatinine Estim Creat Clear Calc Est GFR (MDRD) Af Amer Est GFR (MDRD) Non-Af BUN/Creatinine Ratio Glucose Hemoglobin A1c Lactic Acid 1.4 Calcium Total Bilirubin AST ALT Alkaline Phosphatase Troponin I 0.048 H B-Natriuretic Peptide Total Protein Albumin Globulin Albumin/Globulin Ratio Triglycerides Cholesterol LDL Cholesterol VLDL Cholesterol HDL Cholesterol Lipase TSH Urine Color Urine Clarity Urine pH Ur Specific [place] Urine Protein Urine Glucose (UA) Urine Ketones Urine Occult Blood Urine Nitrite Urine Bilirubin Urine Urobilinogen Ur Leukocyte Esterase Urine RBC Urine WBC Ur Squamous Epith Cells Urine Bacteria Hyaline Casts Urine Mucus 11/20/17 11/20/17 07:00 07:00 WBC RBC Hgb Hct MCV MCH MCHC RDW RDW Differential Plt Count MPV Immature Gran % (Auto) Neut % (Auto) Lymph % (Auto) [place] % (Auto) Eos % (Auto) Baso % (Auto) Absolute Neuts (auto) Absolute Lymphs (auto) Total Counted Sodium 144 Potassium 4.3 Chloride 111 H Carbon Dioxide 24.0 Anion Gap 9 BUN 19 H Creatinine 1.41 H Estim Creat Clear Calc 55.92 Est GFR (MDRD) Af Amer 66 Est GFR (MDRD) Non-Af 55 L BUN/Creatinine Ratio 13.5 Glucose 92 Hemoglobin A1c 6.3 Lactic Acid Calcium 8.1 L Total Bilirubin AST ALT Alkaline Phosphatase Troponin I 0.044 B-Natriuretic Peptide Total Protein Albumin Globulin Albumin/Globulin Ratio Triglycerides 84 Cholesterol 100 LDL Cholesterol 55 VLDL Cholesterol 17 HDL Cholesterol 28 L Lipase TSH Urine Color Urine Clarity Urine pH Ur Specific [place] Urine Protein Urine Glucose (UA) Urine Ketones Urine Occult Blood Urine Nitrite Urine Bilirubin Urine Urobilinogen Ur Leukocyte Esterase Urine RBC Urine WBC Ur Squamous Epith Cells Urine Bacteria Hyaline Casts Urine Mucus Medical Necessity - Tobacco Use Smoking Status: Current every day smoker Tobacco Use: Cigarettes Assessment/Plan All Active Problems Shortness of breath (Acute) Lower extremity edema (Acute) Bilateral lower extremity edema (Acute) Congestive heart failure with LV diastolic dysfunction, NYHA class 3 (Acute) #1 acute systolic congestive heart failure-etiology unclear at this point, EF severely reduced at 10%, patient will have a heart catheterization tomorrow to rule out ischemic heart disease, patient is on IV Lasix and losartan #2 ascites secondary to cardiomyopathy #3 cardiomyopathy-etiology unclear at this point, idiopathic versus ischemic #4 alcohol abuse-I ordered an INR on the patient today #5 elevated creatinine-etiology unclear at this point, BMP will be drawn tomorrow #6 stasis dermatitis of the right lower leg Code Visit Inpatient E&M: 89439 Subs Hosp L2
[2017-11-20 17:33] LABS: International Normalized Ratio 1.2; Prothrombin Time (Protime)PT. 14.9 SECONDS (11.7-14.9)
--- NOTE | 2017-11-20 21:35 | NURSING ---
Patient' s sister, Ave James, called PCU to talk with this nurse. she stated patient called her and said he felt confused and wanted her to be his POA because his has had problems recently with seizures and her memory. He feels his would not be capable of making decisions for him. this nurse instructed pt. that he needed legal POA paper filled out. Will consult CM for this but will be unable to fill out prior to heart cath in morning. this nurse told sister that patient was not at all confused, he signed consent earlier in day and was fully coherent tonight. Sister verbalized understanding and wanted to be called with heart cath time when available.
--- NOTE | 2017-11-20 23:08 | NURSING ---
Friend attempted to bring in small cooler for patient after he got of work, patient on fluid restriction. Due to patient admitting to primary nurse he drinks daily, cooler searched, multiple pills bottles, steak knife, papers, and small unmarked container smelling like alcohol in bag. Patient's friend took papers to his room, and he also brought in an electrical tablet, that also to his room. Encouraged friend to leave the cooler with other contents at the nursing desk, and to return home with this cooler. He verbalizes understanding.
[2017-11-20] MEDS: Losartan Potassium 25 MG Tablet PO (23:15)
[2017-11-21] VITALS (31 sets, daily range): BP systolic 100–202; BP diastolic 74–121; PULSE 92–115; RESP 8–28; TEMP 36.9–37.3; O2SAT 92–100
--- NOTE | 2017-11-21 00:49 | NURSING ---
Called patient's sister at this time to let her know what time pt. heart cath will be. No answer.
--- NOTE | 2017-11-21 03:28 | NURSING ---
Patient's sister, Ave James, called this nurse. Informed her that heart cath is scheduled for 0800 and that POA papers will not be able to be filled out prior to heart cath due to CM not here at this time. she verbalized understanding. Also answered other questions that sister had. Her cell phone number is [phone]
[2017-11-21 04:57] LABS: International Normalized Ratio 1.2; Prothrombin Time (Protime)PT. 14.7 SECONDS (11.7-14.9)
[2017-11-21 04:58] LABS: Partial Thromboplast Time 28.1 Seconds (24.1-36.2)
--- NOTE | 2017-11-21 05:00 | EKG12_ITS ---
Test Reason : MORNING EKG Blood Pressure : / mmHG Vent. Rate : 103 BPM Atrial Rate : 103 BPM P-R Int : 162 ms QRS Dur : 100 ms QT Int : 366 ms P-R-T Axes : 073 -41 102 degrees QTc Int : 479 ms Sinus tachycardia Possible Left atrial enlargement Left axis deviation Low voltage QRS (limb leads) T wave abnormality, consider lateral ischemia Poor R wave progression Abnormal ECG Confirmed by GATO DURAN, FREDRICK ([id number]), marketing editor JEYSON GUTIERREZ ([id number] on 11/27/2017 11:47:59 AM Referred By: YUNIEL Confirmed By:FREDRICK HOSKINS MD
[2017-11-21 05:05] LABS: Hematocrit 45.8 % (40-54); Hemoglobin 14.4 g/dl (13.0-16.5); Mean Corp Hgb Conc 31.4 g/gl (32-36); Mean Corpuscular Hgb 25.7 pg (27.0-32.0); Mean Corpuscular Volume 81.8 fL (80-94); Mean Platelet Vol. 10.1 fl (6.2-12.0); Platelet Count 242 K/mm3 (150-450); RBC Distribution Width CV 16.4 % (11.6-14.6); RBC Distribution Width SD 48.5 fl (35.1-43.9); White Blood Count 7.5 K/mm3 (4.4-11.0)
[2017-11-21 05:06] LABS: Anion Gap 7 (5-15); BUN 16 mg/dL (7-18); BUN/Creat Ratio 11.5 RATIO (10-20); Calcium,Total 7.9 mg/dL (8.5-10.1); Chloride 107 mmol/L (98-107); Creatinine, Serum 1.39 mg/dL (0.70-1.30); EST Glomerular Filtration Rate 56 mL/min (>60); Est Glom Filt Rate - Afr Amer 68 mL/min (>60); Estimated Creatinine Clearance 56.73 ml/min; Glucose 97 mg/dL (74-106); Magnesium 1.5 mg/dL (1.6-2.6); Potassium 3.6 mmol/L (3.5-5.1); Scan Indicated on CBC? Y/N NO; Sodium Level 144 mmol/L (136-145)
--- NOTE | 2017-11-21 06:30 | NURSING ---
Called to room by patient. Pt. states he Wants to rescind his consent for the heart cath. He does not want His arteries cut into or anything being put into his body that does not belong there. He feels he is being rushed into this and that his problem is with his stomach and bowel movements, that there is nothing wrong with his heart. This nurse had extensive conversations through the night with pt. regarding his heart and swelling, and need for this procedure. Will notify Dr. Gould.
--- NOTE | 2017-11-21 09:39 | NURSING ---
Addendum entered by Erika Simmons 11/21/17 11:00: This RN called the Condition Help line from a patient room to verify it is working without issue. Original Note: This RN was informed by S[employer] SEALER that the patient was attempting to use the condition Help line and attempting to call the patient advocate. The Condition Help line had not rung so this RN went to room and introduced self in role of charge nurse. Provided active listening to patient. Patient expressed he feels his symptoms are unrelated to his heart and is frustrated that other potential sources of symptoms have not been further investigated. Reinforced with patient CHF education and results of his echo, labs, and runs of vtach. Patient stated that was helpful as he was out of it when he came in and people were previously explaining this to him. States he does not want a heart cath as it is too invasive. Reinforced it is within his rights to refuse a procedure and the Hospitalist will further discuss with him his options moving forward.
--- NOTE | 2017-11-21 10:18 | CASEMGMT ---
According to [employer] website, the following are in-network tertiary facilities: [facility], [place], [facility], [facility], [facility], and . [facility] CM
[2017-11-21] MEDS: DiphenhydrAMINE 25 MG Capsule 50 MG PO (10:22)
[2017-11-21] MEDS: Clopidogrel Bisulfate 75 MG Tablet PO (10:22)
[2017-11-21] MEDS: Losartan Potassium 25 MG Tablet PO ×2 (10:23→21:27)
[2017-11-21] MEDS: 0.9% Normal Saline 1,000 ML 15 ML IV (10:24)
--- NOTE | 2017-11-21 11:24 | NURSING ---
laborer pullet farm called with report
--- NOTE | 2017-11-21 11:29 | PN_ITS ---
Patient Problems: Active and Suspected Problems Shortness of breath (Acute) Lower extremity edema (Acute) Bilateral lower extremity edema (Acute) Congestive heart failure with LV diastolic dysfunction, NYHA class 3 (Acute) Subjective: Patient was seen and examined today, initially he refused to undergo cardiac catheterization, I spent approximately 30 minutes talking with the patient going over the risks of not having the procedure versus having the procedure he has many questions about the procedure and I answered all of them adequately, and the and, he felt it was in his best interest to undergo a heart catheterization when he understood that not knowing his coronary anatomy could end up causing a serious problem if he had occlusive coronary disease. He told me his was not able to make decisions as she was not mentally competent to make any decisions so he never went over the fact that he may have a cardiac cat heterization. I passed the information on to Dr. Gould who will perform the cardiac cath today. Patient's lower extremity edema is less today, he has no complaints of any shortness of breath today. - Physical Exam General: Alert, Oriented x3, Cooperative, No apparent distress, Well developed, Well nourished HEENT: Atraumatic, PERRLA, EOMI, Normocephalic Oral: Moist Mucosa Neck: Supple, No Nuchal Rigidity, Trachea Midline, Thyroid Normal Size and Texture Lungs: Clear to auscultation, Normal air movement, No rhonchi, No wheeze, No rales Cardiovascular: Regular rate, Regular Rhythm, Normal S1, Normal S2, No murmurs, No Ectopic Activity, PMI Normal, No rub noted, No Gallop Abdomen: Bowel Sounds Present, Soft, Non Tender Extremities: No clubbing, No cyanosis, Capillary Refill Less than 3 Seconds, Edema - There is +2-3 mm edema noted over the right lower extremity along with stasis dermatitis changes, there is +1 mm edema noted over the left lower extremity Skin: No rashes, No breakdown Musculoskeletal: No Muscle Wasting Neurological: Cranial nerves II-XII grossly intact, Neuro grossly intact, Se nsory exam intact to light touch and pain, Coordination normal Psych/Mental Status: Normal Affect, Appropriate, Alert and oriented to time, place, person, mood and affect Vital Signs Temp Pulse Resp BP Pulse Ox 98.5 F 98 18 132/85 H 97 11/21/17 10:29 11/21/17 10:29 11/21/17 10:29 11/21/17 10:29 11/21/17 10:29 Oxygen Delivery Method Room Air Weight: 83.6 kg Body Mass Index (BMI) 29.3 Intake and Output for Last 24 Hours 11/19/17 11/20/17 11/21/17 23:59 23:59 23:59 Intake Total 1110 / 1110 0 / 0 Output Total 4500 / 4500 400 / 400 Balance -3390 / -3390 -400 / -400 Laboratory Tests Past 24 Hrs 11/20/17 11/21/17 11/21/17 16:44 04:35 04:35 WBC 7.5 RBC 5.60 Hgb 14.4 Hct 45.8 MCV 81.8 MCH 25.7 L MCHC 31.4 L RDW 16.4 H RDW Differential 48.5 H Plt Count 242 MPV 10.1 PT 14.9 14.7 INR 1.2 1.2 APTT 28.1 Sodium Potassium Chloride Carbon Dioxide Anion Gap BUN Creatinine Estim Creat Clear Calc Est GFR (MDRD) Af Amer Est GFR (MDRD) Non-Af BUN/Creatinine Ratio Glucose Calcium Magnesium 11/21/17 04:35 WBC RBC Hgb Hct MCV MCH MCHC RDW RDW Differential Plt Count MPV PT INR APTT Sodium 144 Potassium 3.6 Chloride 107 Carbon Dioxide 30.0 Anion Gap 7 BUN 16 Creatinine 1.39 H Estim Creat Clear Calc 56.73 Est GFR (MDRD) Af Amer 68 Est GFR (MDRD) Non-Af 56 L BUN/Creatinine Ratio 11.5 Glucose 97 Calcium 7.9 L Magnesium 1.5 L Medical Necessity - Tobacco Use Smoking Status: Current every day smoker Tobacco Use: Cigarettes Assessment/Plan All Active Problems Shortness of breath (Acute) Lower extremity edema (Acute) Bilateral lower extremity edema (Acute) Congestive heart failure with LV diastolic dysfunction, NYHA class 3 (Acute) #1 acute systolic congestive heart failure-etiology unclear at this point, EF severely reduced at 10%, patient will have a heart catheterization today to outline coronary anatomy and identify any pathology that can be corrected. Continue IV Lasix and other medications as directed by cardiology #2 ascites secondary to cardiomyopathy #3 cardiomyopathy-etiology unclear at this point, idiopathic versus ischemic #4 alcohol abuse-I do not believe the patient is going to have a problem with DTs, I think his alcohol intake is not excessive on a daily basis at this point #5 elevated creatinine-etiology unclear at this point, creatinine is improved today at 1.39 #6 stasis dermatitis of the right lower leg Code Visit Inpatient E&M: 76896 Subs Hosp L2
--- NOTE | 2017-11-21 12:27 | CASEMGMT ---
SW met with patient regarding advance directives per his request. SW explained documents and he verbalized understanding. SW started to complete healthcare POA. DISTRIBUTION DRIVER had to prep patient for a procedure. LEEANNE told patient SW will check back with him when he is back. He wants his sister to be his healthcare POA. Sydni HENDRICKS MSW
--- NOTE | 2017-11-21 12:33 | NURSING ---
ICU called with report
--- NOTE | 2017-11-21 12:59 | CL.I_ITS ---
Patient Name: KYLE MANN Study Date: 11/21/2017 Performing: Eitan Gould MD Ht: 68.11 inches 173 cm : 1960 Wt: 185.19 lbs 84 kg Age: 57 Gender: male BSA: 1.98 PROCEDURE(S) PERFORMED DG55-HGM/LHC/COR/LV MK70-SFF W OR WO PTCA, SINGLE CORONARY ARTERY CLINICAL PROFILE AND CO-MORBIDITIES Indications: Suspected CAD, Cardiac Arrythmia, LV Dysfunction Heart Failure: NYHA Class: 3, Newly Diagnosed: Yes, Heart Failure Type: Systolic Stress/Imaging Stress/Image Study Performed: No Angina Classification Anginal Classification w/in 2 Weeks: CCS II CAD Presentations: Unstable angina. Other: Dyspnea on exertion/edema/Severe LV dysfunction. 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 Elevated Left Ventricular End Diastolic Pressure Successful PTCA/DINAH mid LCX with a 2.5 x12 Promus Synergy, post dilated throughout with a 3.0 x 8 NC balloon; 75%-->0%, no dissection. RECOMMENDATIONS Referred for immediate PCI Highly recommend quitting all tobacco products Follow up with primary retail representative Risk factor modification ASA Indefinitley Plavix for at least 12 months Routine post interventional care Refer for Outpatient Cardiac Rehab Manual sheath removal per protocol Follow up with Dr. Gould Stress test in 4 weeks to eval LAD/DIAG and to allow for DAPT evaluation and CHF resolution. IF pt h as anterior ischemia will proceed with PCI/DINAH of LAD +/- POBA to DIAG#1. Manual sheath removal. DESCRIPTION OF PROCEDURE The patient arrived to the procedure lab. The risks and benefits of the procedure as well as a full d escription of our services here and lack of surgical backup were fully explained to the patient and/o r their significant other prior to the catheterization. The Timeout was completed, verifying the juvenal ect patient and procedure. The patient's procedural site was prepped and draped in the usual fashion. Local anesthetic was given subcutaneously to right groin region with Lidocaine 2%. Using a modified Seldinger technique, arterial access was obtained via the right femoral artery, a 4Fr sheath was inse rted. Venous access was obtained via the right femoral vein, a 7Fr sheath was inserted. A 7Fr thermal dilution catheter was inserted and right heart pressures were recorded, it was then advanced to PA p osition for cardiac outputs. Thermal dilution cardiac outputs were then recorded. O2 saturations were then obtained. Left Ventriculography was performed in [place] projection using a 4 Fr. Pigtail catheter. LV to AO pullback pressures were then recorded. Simultaneous pressures were then recorded. The Therm al dilution catheter was then removed. Left Coronary Artery selective angiography was performed in mu ltiple views using a 4 Fr. JL5 catheter. Right Coronary Artery selective angiography was then perform ed in multiple views using a 4 Fr. 3DRC catheterThe images were reviewed and options discussed. A dec ision was then made to proceed with an Intervention, IVUS or other adjunct procedure. Arterial sheath was exchanged for a 6 Fr Sheath. EBU 3.5 Guide catheter was inserted and engaged into the LCA. BMW Guide wire was advanced to the Circumflex. Angiogram performed pre balloon dilatation. 2.5x12 Synergy Drug Eluting stent was inserted. Drug Eluting stent was advanced across the lesion in the circumflex, mid. Angiogram performed post stent deployment. 3x8 NC Emerge Balloon catheter was in serted. Balloon catheter was inserted post stent. Angiogram performed post balloon dilatation. The arterial sheath was sutured in place and capped CORONARY ANGIOGRAPHY DOMINANCE: Co- Dominant LEFT HEART ASSESSMENT Left Ventricular Ejection Fraction: by LV Gram 10 % Depressed Left Ventricular systolic function LVEDP: 35 mmHg Elevated Left Ventricular End Diastolic Pressure Global Hypokinesis - Severe RIGHT HEART ASSESSMENT Thermal CO: 5.56 Thermal CI: 2.81 Rebecca CO: 4.8 Rebecca CI: 2.42 PW: 26/32 24 PA: 50/26 33 RV: 48/3 17 RA: 17/16 12 PVR: 129 Right Heart pressures - elevated Pulmonary Hypertension Moderate LEFT MAIN: Angiographically normal LEFT ANTERIOR DECENDING ARTERY: PROX LAD: Mild calcification, 60 % Stenosis DIAGONAL 1: Ostial - 70 % Stenosis CIRCUMFLEX ARTERY: MID CIRC: 75 % Stenosis RIGHT CORONARY ARTERY: No significant disease noted INTERVENTION INFORMATION LESION SITE: Circumflex (Mid) Lesion Complexity: Non-High/Non-C, lesion at bifurcation: No, thrombus present: No, lesion length: 12 mm, culprit lesion: Yes Pre Stenosis: 75 % Pre intervention KAIA flow: 3 PROCEDURE: Drug Eluting Stent with post dilatation Post Stenosis: 0 % Post intervention KAIA flow: 3 Lesion Devices: Maldonado .014 BMW [place] Straight 190cm Medtronic 6 Fr EBU3.5 100cm Guide Catheter Angel Sci Synergy MR DINAH 2.50x12 Angel Sci NC EMERGE MR 3.00x08 BALLOON COMPLICATIONS No Complications PROCEDURE MEDICATIONS Versed 1 mg IV Oxygen: 0L/min via nasal cannula Oxygen: 2 L/min via nasal cannula Baby Aspirin (81mg) 1 Tabs PO @ 11/21/2017 11:43:20 Heparin 6000 unit(s) IV 11/21/2017 12:28:51 Heparin 4000 unit(s) IV 11/21/2017 12:56:43 Nitro 200 mcg IC 11/21/2017 12:40:17 SUMMARY OF HEMODYNAMIC DATA Time AIR REST ECG 11:41:37 RA 17/16 (12) SV 12:11:35 RV 48/3, 17 12:11:50 PW 26/32 (24) PV 12:12:31 PA 50/26 (33) PA 12:12:40 LV 118/0, 31 12:17:11 LV 120/0, 31 12:17:19 LV 120/5, 35 12:17:37 PW 30/31 (30) 12:17:37 LV 119/6, 34 12:17:44 PW 29/32 (27) 12:17:44 LV 125/0, 32 12:17:56 RV 51/4, 18 12:17:56 LV 127/0, 31 12:18:03 RV 49/4, 18 12:18:03 LV 125/-4, 28 12:19:29 LVp 124/-5, 28 12:19:33 AOp 121/72 (90) 12:19:39 Type SV CO (l/m) CI (l/m/ HR Time AIR REST Thermal 55.00 5.56 2.81 101 11:41:37 Rebecca 47.50 4.80 2.42 101 11:41:37 Label % O2 Pres/Loc Time AIR REST PA 66 PA 12:31:00 AO 94 PV 12:31:04 Signed By Eitan Gould MD On 11/21/2017 12:58:36 Eitan Gould MD
--- NOTE | 2017-11-21 13:03 | EKG12_ITS ---
Test Reason : Blood Pressure : / mmHG Vent. Rate : 098 BPM Atrial Rate : 098 BPM P-R Int : 152 ms QRS Dur : 100 ms QT Int : 370 ms P-R-T Axes : 077 -36 112 degrees QTc Int : 472 ms Normal sinus rhythm Left axis deviation Low voltage QRS (limb leads) Poor R wave progression T wave abnormality, consider lateral ischemia Prolonged QT Abnormal ECG Confirmed by GATO DURAN, FREDRICK ([id number]), editorial intern JEYSON GUTIERREZ ([id number]) on 11/27/2017 1:06:40 PM Referred By: OJ Confirmed By:FREDRICK HOSKINS MD
[2017-11-21] MEDS: 0.9% Normal Saline 1,000 ML 75 ML IV (13:57)
[2017-11-21 14:26] LABS: Base Excess -6 mmol/L (-2 to +2); Bicarbonate 20.5 mmol/L (22-26); Blood Gas Specimen Type ART; PO2 76 mmHG (75-100); SO2 94 % (95-99); Total Carbon Dioxide 22 mmol/L; pCO2 40.5 mmHg (35-45); pH 7.31 (7.35-7.45)
[2017-11-21 14:26] LABS: Blood Gas Specimen Type VEN; VBG BASE EXCESS 2 mmol/L (-1.0-3.5); VBG Bicarbonate 26 mmol/L (22-26); VBG Oxygen Content 27 mmol/L (23-33); VBG PO2 33 mmHg (25-40); VBG SO2 66 % (50-70); VBG pH 7.44 (7.32-7.42)
[2017-11-21 14:26] LABS: ACT Activated Clotting Time 169 sec (74-137)
[2017-11-21 14:26] LABS: ACT Activated Clotting Time 164 sec (74-137)
[2017-11-21 14:26] LABS: Blood Gas Specimen Type VEN; VBG BASE EXCESS 1 mmol/L (-1.0-3.5); VBG Bicarbonate 25 mmol/L (22-26); VBG Oxygen Content 26 mmol/L (23-33); VBG PO2 33 mmHg (25-40); VBG SO2 66 % (50-70); VBG pCO2 37.2 mmHg (41-51); VBG pH 7.43 (7.32-7.42)
--- NOTE | 2017-11-21 14:49 | CASEMGMT ---
Patient went to ICU after his heart cath. SW checked back with him to complete documents, but he was sleeping. SW asked Friday SW to follow up with this. Sydni HENDRICKS MSW
--- NOTE | 2017-11-21 15:05 | CRPHASE1 ---
Patient Data/Charges Executive Consultant:: Eitan Gould Refer Phase II:: Yes Phase II Referral:: [facility] Risk Factors/Lifestyle Smoking Status: Current every day smoker Laboratory Values: Cardiac Rehab Phase I Labs Hemoglobin A1c 6.3 % (4.2-6.3) 11/20/17 07:00 Triglycerides 84 mg/dL (-199) 11/20/17 07:00 Cholesterol 100 mg/dL (200) 11/20/17 07:00 LDL Cholesterol 55 mg/dL (0-130) 11/20/17 07:00 HDL Cholesterol 28 mg/dL (40-) L 11/20/17 07:00 Knowledge of Condition:: Yes Hospital Course Presenting Symptoms:: SOB Medical/Surgical History PTCA:: Yes
--- NOTE | 2017-11-21 15:09 | CRPHASE1_ITS ---
Patient Data/Charges Retail Account Manager:: Eitan Gould Refer Phase II:: Yes Phase II Referral:: [facility] Risk Factors/Lifestyle Smoking Status: Current every day smoker Laboratory Values: Cardiac Rehab Phase I Labs Hemoglobin A1c 6.3 % (4.2-6.3) 11/20/17 07:00 Triglycerides 84 mg/dL (-199) 11/20/17 07:00 Cholesterol 100 mg/dL (200) 11/20/17 07:00 LDL Cholesterol 55 mg/dL (0-130) 11/20/17 07:00 HDL Cholesterol 28 mg/dL (40-) L 11/20/17 07:00 Knowledge of Condition:: Yes Hospital Course Presenting Symptoms:: SOB Medical/Surgical History PTCA:: Yes
--- NOTE | 2017-11-21 15:12 | CRPH1.INST_ITS ---
General Education CAD and cardiac anatomy and function:: Patient communicates acknowledgment Explanation of diagnoses and procedures:: Patient communicates acknowledgment Sign/Symptoms of VA:: Patient communicates acknowledgment Antiplatelet therapy: Patient communicates acknowledgment Proper use of NTG-SL: Not instructed Emergency procedures and activation of EMS: Patient communicates acknowledgment Compliance of all prescribed medications: Patient communicates acknowledgment Smoking Patient Nicotine/Smoking Risk Factors Are:: Cigarettes Recommendations Include:: Smoking cessation strategies/Smoking packet, Second- hand smoke recommendation, Participation in a smoking cessation program, Previous smoker; encourage continued cessation Nicotine/Smoking Response Code:: Patient communicates acknowledgment Dyslipidemia Dyslipidemia Response Code:: Patient communicates acknowledgment Overweight/Obesity Patient Overweight/Obesity Risk Factors Are:: Overweight = 26-29 Recommendations Include:: Weight loss of 5-10%, Reduced calorie diet, Exercise 5-7 times/week Overweight/Obesity:: Patient communicates acknowledgment Hypertension Recommendations Include:: Maintain BP <130/85, BP <130/80 if diabetic, DASH dietary guidelines, Decrease/maintain normal body weight, Moderation of ETOH Hypertension:: Patient communicates acknowledgment Heart Disease Heart Disease Response Code:: Patient communicates acknowledgment Diabetes Diabetes:: Patient communicates acknowledgment Metabolic Syndrome Metabolic Syndrome Response Code:: Patient communicates acknowledgment Sedentary Patient Sedentary Risk Factors Are:: Lack of regular exercise Sedentary Response Code:: Patient communicates acknowledgment
[2017-11-21 15:41] LABS: ACT Activated Clotting Time 147 sec (74-137)
[2017-11-21] MEDS: Morphine 2 MG/ML Syringe IV (16:10)
--- NOTE | 2017-11-21 16:39 | PCM.PN.BLA ---
Progress Note Patient will be contacted by [facility] office regarding date and time for nuclear treadmill stress test.
[2017-11-21] MEDS: Furosemide 40 MG/4 ML Vial IV (18:03)
[2017-11-21] MEDS: 0.9% NaCl Peripheral Flush Adult/Peds IV (18:04)
[2017-11-21] MEDS: Atorvastatin Calcium 20 MG Tablet PO (21:29)
[2017-11-21] MEDS: Carvedilol 3.125 MG TABLET PO (22:34)
[2017-11-22] VITALS (18 sets, daily range): BP systolic 92–135; BP diastolic 69–105; PULSE 87–105; RESP 11–22; TEMP 36.4–36.8; O2SAT 90–99
[2017-11-22 04:52] LABS: Hematocrit 43.8 % (40-54); Hemoglobin 14.1 g/dl (13.0-16.5); Mean Corp Hgb Conc 32.2 g/gl (32-36); Mean Corpuscular Hgb 25.8 pg (27.0-32.0); Mean Corpuscular Volume 80.2 fL (80-94); Mean Platelet Vol. 10.3 fl (6.2-12.0); Platelet Count 276 K/mm3 (150-450); RBC Distribution Width CV 16.9 % (11.6-14.6); RBC Distribution Width SD 48.7 fl (35.1-43.9); Red Blood Count 5.46 M/mm3 (4.6-6.2); White Blood Count 6.1 K/mm3 (4.4-11.0)
[2017-11-22 04:57] LABS: Anion Gap 9 (5-15); BUN 14 mg/dL (7-18); BUN/Creat Ratio 13.9 RATIO (10-20); Calcium,Total 8.1 mg/dL (8.5-10.1); Chloride 108 mmol/L (98-107); Creatinine, Serum 1.01 mg/dL (0.70-1.30); EST Glomerular Filtration Rate 81 mL/min (>60); Est Glom Filt Rate - Afr Amer 98 mL/min (>60); Estimated Creatinine Clearance 78.07 ml/min; Glucose 104 mg/dL (74-106); Potassium 3.9 mmol/L (3.5-5.1); Sodium Level 144 mmol/L (136-145)
[2017-11-22 05:07] LABS: Scan Indicated on CBC? Y/N NO
[2017-11-22] MEDS: 0.9% NaCl Peripheral Flush Adult/Peds IV ×2 (06:16→10:28)
--- NOTE | 2017-11-22 08:40 | DS.PCM_ITS ---
Discharge Date and Diagnosis Date of Admission: 11/20/17 Date of Discharge: 11/22/17 - Primary Discharge Diagnosis Active and Suspected Problems Shortness of breath (Acute) Lower extremity edema (Acute) Bilateral lower extremity edema (Acute) Congestive heart failure with LV diastolic dysfunction, NYHA class 3 (Acute) Hospital Course and Treatment Summary of Care Provided: The patient is a 57 year old M was admitted with progressive worsening of shortness of breath with PND and orthopnea, bilateral lower extremity and ascites for about 3 months. On further assessment, BNP was found elevated, EKG changes of T wave inversion in lateral leads, troponin 0 0.057 and chest x-ray finding of small right pleural effusion consistent with new onset CHF exacerbation and non-STEMI. Patient had cardiac cath and found global severe LV systolic dysfunction, EF10%. Double vessel coronary artery disease of left circumflex and proximal LAD. Mid circumflex 75% restenosis. Proximal LAD 60% stenosis ostial diagonal 170% stenosis. PCI was done of the mid left circumflex. Patient also had moderate pulmonary hypertension. #1 acute systolic congestive heart failure, most probably secondary to non- STEMI: Patient had cardiac cath and procedure done as mentioned above. Patient was started on aspirin, Plavix, carvedilol, Lasix and losartan. His scripts for all medication sent to pharmacy. #2 non-STEMI: As mentioned above ascites secondary to cardiomyopathy #3 cardiomyopathy-etiology unclear at this point, idiopathic versus ischemic #4 Chronic alcoholic hepatitis secondary to chronic alcohol use and dependence- no DT. ALT and AST mildly elevated, 64 and 61. Albumin 3.4. #5 Acute on-CKD stage II most probably secondary to cardiorenal disease/heart failure: Admitting creatinine was 1.5 improved to 1.0. Estimated creatinine clearance about 48 improved to 78 mL/min. Patient was started on Cozaar 25 mg twice daily. Aldactone was not restarted because of AK on CKD. If creatinine and potassium remained stable, consider low-dose of Aldactone as an outpatient. #6 Right lower leg superficial cellulitis with chronic venous stasis: Local exam, right lower leg erythematous, mildly tender and induration. Started on Duricef for 5 days, total 10 capsule.. [] 7. Dyslipidemia: Patient discharged on atorvastatin 20 mg daily. Lipid profile shows HDL 28, LDL 55. A1c 6.3. Atorvastatin was kept to low because of alcoholic hepatitis and if the liver profile remains stable can be increased. Discharge medication reconciliation done. Prescription sent to the pharmacy. Follow-up instructions completed. Follow-up with Dr. Gould in 1 week. Follow with PCP in 1-2 weeks. Cardiac rehab emphasized. Total time spent, exact 35 minutes on discharge meds reconciliation, examination, review of imaging and blood test and discussion with the patient on follow-up instructions. - Physical Exam Vital Signs Temp Pulse Resp BP Pulse Ox 97.6 F L 95 16 119/88 H 97 11/22/17 08:00 11/22/17 08:00 11/22/17 08:00 11/22/17 08:00 11/22/17 08:00 Oxygen Delivery Method Room Air Weight: 187 lb 2.759 oz Body Mass Index (BMI) 29.3 Intake and Output for Last 24 Hours 11/20/17 11/21/17 11/22/17 23:59 23:59 23:59 Intake Total 1110 / 1110 961.7 / 961.7 Output Total 4500 / 4500 4675 / 4675 Balance -3390 / -3390 -3713.3 / -3713.3 Laboratory Tests Past 24 Hrs 11/21/17 11/21/17 11/21/17 12:16 12:19 12:29 WBC RBC Hgb Hct MCV MCH MCHC RDW RDW Differential Plt Count MPV Activated Clotting Time Specimen Type CECILE CECILE ART pH 7.31 L Bicarbonate Actual 20.5 L POC Total CO2 22 Base Excess -6 L O2 Saturation 94 L ABG pCO2 40.5 ABG pO2 76 VBG pH 7.44 H 7.43 H VBG pO2 33 33 VBG O2 Sat (Calc) 66 66 VBG O2 Content 27 26 VBG Base Excess 2 1 POC Mix VBG pCO2 Pt Tmp 38.0 L 37.2 L Sodium Potassium Chloride Carbon Dioxide Anion Gap BUN Creatinine Estim Creat Clear Calc Est GFR (MDRD) Af Amer Est GFR (MDRD) Non-Af BUN/Creatinine Ratio Glucose Calcium 11/21/17 11/21/17 11/21/17 12:48 12:53 15:25 WBC RBC Hgb Hct MCV MCH MCHC RDW RDW Differential Plt Count MPV Activated Clotting Time 164 H 169 H 147 H Specimen Type pH Bicarbonate Actual POC Total CO2 Base Excess O2 Saturation ABG pCO2 ABG pO2 VBG pH VBG pO2 VBG O2 Sat (Calc) VBG O2 Content VBG Base Excess POC Mix VBG pCO2 Pt Tmp Sodium Potassium Chloride Carbon Dioxide Anion Gap BUN Creatinine Estim Creat Clear Calc Est GFR (MDRD) Af Amer Est GFR (MDRD) Non-Af BUN/Creatinine Ratio Glucose Calcium 11/22/17 11/22/17 04:35 04:35 WBC 6.1 RBC 5.46 Hgb 14.1 Hct 43.8 MCV 80.2 MCH 25.8 L MCHC 32.2 RDW 16.9 H RDW Differential 48.7 H Plt Count 276 MPV 10.3 Activated Clotting Time Specimen Type pH Bicarbonate Actual POC Total CO2 Base Excess O2 Saturation ABG pCO2 ABG pO2 VBG pH VBG pO2 VBG O2 Sat (Calc) VBG O2 Content VBG Base Excess POC Mix VBG pCO2 Pt Tmp Sodium 144 Potassium 3.9 Chloride 108 H Carbon Dioxide 27.0 Anion Gap 9 BUN 14 Creatinine 1.01 Estim Creat Clear Calc 78.07 Est GFR (MDRD) Af Amer 98 Est GFR (MDRD) Non-Af 81 BUN/Creatinine Ratio 13.9 Glucose 104 Calcium 8.1 L Call your doctor if you observe: Fever of 101 or Higher, Change in Color, Yin rtness of breath, Swelling in the ankles Home Medications: Medications to take at Discharge Aspirin E.C. [Ecotrin] 325 mg PO DAILY #30 tablet 11/22/17 Atorvastatin Calcium [Lipitor] 20 mg PO QHS #30 tablet 11/22/17 Carvedilol [Coreg (Beta Vick)] 3.125 mg PO BID #60 tablet 11/22/17 Cefadroxil [Duracef] 500 mg PO BID #10 capsule 11/22/17 Clopidogrel Bisulfate [Plavix] 75 mg PO DAILY #30 tablet 11/22/17 Furosemide [Lasix] 40 mg PO BIDLX #60 tablet 11/22/17 Losartan Potassium [Cozaar] 25 mg PO BID #60 tablet 11/22/17 Multivitamins,Ther W-Minerals [Multivitamin With Minerals] 1 tablet PO DAILYCM tablet 11/22/17 Following Prescrptions Were Given to Patient: Aspirin E.C. [Ecotrin] 325 mg PO DAILY #30 tablet Atorvastatin Calcium [Lipitor] 20 mg PO QHS #30 tablet Clopidogrel Bisulfate [Plavix] 75 mg PO DAILY #30 tablet Furosemide [Lasix] 40 mg PO BIDLX #60 tablet Carvedilol [Coreg (Beta Vick)] 3.125 mg PO BID #60 tablet Cefadroxil [Duracef] 500 mg PO BID #10 capsule Losartan Potassium [Cozaar] 25 mg PO BID #60 tablet Primary Care Physician: Kojo Rondon MD [Primary Care Provider] - Please follow up with your Primary Care Physician in: in 2 weeks Please Follow Up With: Eitan Gould MD When: in 1-2 weeks Medical Necessity - Tobacco Use Smoking Status: Current every day smoker Tobacco Use: Cigarettes Meaningful Use Info Meaningful Use Diagnoses (Choose all that apply): AMI, CHF - AMI Aspirin given w/in 24hrs of arrival?: Yes ASA at discharge?: Yes Statins at discharge?: Yes Raffaele/ARB at discharge?: Yes Beta Vick at discharge?: Yes Done w/ Acute IL measure.: Yes - CHF RAFFAELE/ARB ordered at discharge?: Yes Documented LVEF (%): 10 Code Visit Inpatient E&M: 51519 Disch Hosp
--- NOTE | 2017-11-22 08:40 | DCINST_ITS ---
- Discharge Diagnoses Current Active Problems: Current Active and Chronic Problems Shortness of breath (Acute) Lower extremity edema (Acute) Bilateral lower extremity edema (Acute) Congestive heart failure with LV diastolic dysfunction, NYHA class 3 (Acute) You will use the following diet at home:: Cardiac Call your doctor if you observe: Fever of 101 or Higher, Change in Color, Shortness of breath, Swelling in the ankles Allergies/Adverse Reactions: Allergies No Known Allergies Allergy (Verified 11/19/17 20:44) Medications to take at Discharge Aspirin E.C. [Ecotrin] 325 mg PO DAILY #30 tablet 11/22/17 Atorvastatin Calcium [Lipitor] 20 mg PO QHS #30 tablet 11/22/17 Carvedilol [Coreg (Beta Vick)] 3.125 mg PO BID #60 tablet 11/22/17 Cefadroxil [Duracef] 500 mg PO BID #10 capsule 11/22/17 Clopidogrel Bisulfate [Plavix] 75 mg PO DAILY #30 tablet 11/22/17 Furosemide [Lasix] 40 mg PO BIDLX #60 tablet 11/22/17 Losartan Potassium [Cozaar] 25 mg PO BID #60 tablet 11/22/17 Multivitamins,Ther W-Minerals [Multivitamin With Minerals] 1 tablet PO DAILYCM tablet 11/22/17 The following prescriptions were given: Aspirin E.C. [Ecotrin] 325 mg PO DAILY #30 tablet Atorvastatin Calcium [Lipitor] 20 mg PO QHS #30 tablet Clopidogrel Bisulfate [Plavix] 75 mg PO DAILY #30 tablet Furosemide [Lasix] 40 mg PO BIDLX #60 tablet Carvedilol [Coreg (Beta Vick)] 3.125 mg PO BID #60 tablet Cefadroxil [Duracef] 500 mg PO BID #10 capsule Losartan Potassium [Cozaar] 25 mg PO BID #60 tablet Primary Care Physician: Kojo Rondon MD [Primary Care Provider] - Please follow up with your Primary Care Physician in: in 2 weeks Test Results: Test results from this visit will be discussed in further detail at your follow- up appointment, if applicable. Please Follow Up With: Eitan Gould MD When: in 1-2 weeks
[2017-11-22] MEDS: Carvedilol 3.125 MG TABLET PO (10:27)
[2017-11-22] MEDS: Clopidogrel Bisulfate 75 MG Tablet PO (10:27)
[2017-11-22] MEDS: Losartan Potassium 25 MG Tablet PO (10:27)
[2017-11-22] MEDS: Multivitamins,Ther W-Minerals Tablet 1 TABLET PO (10:27)
[2017-11-22] MEDS: Furosemide 40 MG/4 ML Vial IV (10:28)
--- NOTE | 2017-11-22 11:01 | CASEMGMT ---
Social Work Note Completed HCPOA paperwork with pt. Copies placed on chart and pt provided with originals. No further needs at this time. Lyric Barillas, AD COMPOSITOR, CAR CONDITIONER
--- NOTE | 2017-11-22 12:53 | PCM.PN.BLA ---
Progress Note Patient being discharged home. Denies any complaints. EKG stable. Right groin stable. No hematoma. Okay to discharge home. Follow-up with Dr. Gould in 1 week.
--- NOTE | 2017-11-22 13:03 | EKG12_ITS ---
Test Reason : AM Blood Pressure : / mmHG Vent. Rate : 098 BPM Atrial Rate : 098 BPM P-R Int : 150 ms QRS Dur : 112 ms QT Int : 388 ms P-R-T Axes : 078 -55 116 degrees QTc Int : 495 ms Normal sinus rhythm Low voltage QRS (limb leads) Left anterior fascicular block T wave abnormality, consider lateral ischemia Abnormal ECG Confirmed by GATO DURAN, FREDRICK ([id number]), editorial specialist JEYSON GUTIERREZ ([id number] on 11/27/2017 1:04:28 PM Referred By: MELYSSA Confirmed By:FREDRICK HOSKINS MD
--- NOTE | 2017-11-25 16:15 | CASEMGMT ---
ELANA BARTON Discharge Follow-Up Phone Call. LACE: 12 Strata: 4 Discharge Date: 11/22/17 Adm Dx: CHF Exacerbation. Attempted discharge phone call. No answer. Message left on voicemail and provided RN ORALIA phone number for pt to return call if he has any questions/concerns. Kimmy HOFFMAN RN CM
== END 2017-11-22 14:11 | disposition home or self-care (01) | DRG 246 ==
LOC: ED 22:23 → PCU 23:51 → ICU 11-21 12:40
PROVIDERS: Internal Medicine; Internal Medicine Cardiovascular Disease; Admitting Provider Student in an Organized Health Care Education/Training Program; Emergency Provider Emergency Medicine; Family Provider Family Medicine; PCP Family Medicine; Visit Provider Internal Medicine
DX: I21.4 Non-ST elevation (NSTEMI) myocardial infarction (principal); I50.21 Acute systolic (congestive) heart failure; I13.0 Hypertensive heart and chronic kidney disease with heart failure and stage 1 through stage 4 chronic kidney disease, or unspecified chronic kidney disease; R18.8 Other ascites; I42.9 Cardiomyopathy, unspecified; L03.115 Cellulitis of right lower limb; N18.2 Chronic kidney disease, stage 2 (mild); E78.5 Hyperlipidemia, unspecified; I27.20 Pulmonary hypertension, unspecified; K70.10 Alcoholic hepatitis without ascites; F10.20 Alcohol dependence, uncomplicated; I87.8 Other specified disorders of veins; I25.10 Atherosclerotic heart disease of native coronary artery without angina pectoris; F17.210 Nicotine dependence, cigarettes, uncomplicated
CPT/HCPCS: 36415; 71046; 74177; 80048; 80053; 80061; 81001; 82803; 83036; 83605; 83690; 83735; 83880; 84443; 84484; 85025; 85027; 85347; 85610; 85730; 92928; 93005; 93306; 93460; 97802; 99152; 99153; 99284; J7030; J7050; Q9957; Q9967; A4216; C1725; C1751; C1769; C1887; C1894; C8929; C9600; J0295; J1940; J2405

== ENCOUNTER 2022-08-14 23:10 | Observation (INO) | payer MEDICAID, SELFPAY ==
[2022-08-14 23:11] VITALS: BP 173/87; PULSE 99; RESP 16; TEMP 36.4; O2SAT 94; BMI 25.4
[2022-08-14 23:42] LABS: Absolute Lymphocyte Count 1.52 X10^3/uL (0.83-4.51); Absolute Neutrophil Count 5.4 X10^3/uL (2.0-7.7); Basophil# 0.09 X10^3/uL; Basophil% 1.2 % (0-1); Eosinophil# 0.08 X10^3/uL; Hematocrit 44.9 % (40-54); Hemoglobin 15.1 g/dL (13.0-16.5); Lymphocyte # 1.52 X10^3/ul (0.83-4.51); Lymphocyte % 19.4 % (19-41); Mean Corp Hgb Conc 33.6 g/dL (32-36); Mean Corpuscular Hgb 28.8 pg (27.0-32.0); Mean Corpuscular Volume 85.5 fL (80-94); Mean Platelet Vol. 9.8 fl (6.2-12.0); Monocyte# 0.64 X10^3/uL; Monocyte% 8.2 % (0-10); NRBC Flagged by Analyzer 0 % (0-5); Neutrophil # 5.43 X10^3/uL (2.7-7.7); Neutrophil % 69.4 % (47-70); Platelet Count 254 K/mm3 (150-450); RBC Distribution Width CV 13.2 % (11.6-14.6); RBC Distribution Width SD 40.7 fl (35.1-43.9); Red Blood Count 5.25 M/mm3 (4.6-6.2); White Blood Count 7.8 K/mm3 (4.4-11.0)
--- NOTE | 2022-08-14 23:44 | EX.ED.SAOD ---
HPI History of Present Illness Chief Complaint: Substance Abuse Narrative Narrative: 62-year-old male presenting for detox. He wants to detox from opioids and alcohol. He states he drinks about 1/5 of alcohol a day. He also does not either fentanyl or heroin daily. He states has been like this for 2 years since his . He states his last drink was just prior to coming to the ER. Patient states he has not had withdrawal before. Patient does state that he has been vomiting since yesterday which she thought was due to eating some bad spaghetti. He had a friend that also ate it he felt nauseous from it. He was able to drink alcohol today however. He has a mild epigastric pain. He has a history of CAD and was medically noncompliant with his medications and just already taking them. He states the medications are actually old and likely but has been using them. He has a history of CAD, stent, ischemic cardiomyopathy. [facility] Medical History (Updated 08/15/22 @ 03:[address] Felipe Keyes MD) Atherosclerosis of [place] coronary artery of [place] heart without angina pectoris Bilateral lower extremity edema Congestive heart failure with LV diastolic dysfunction, NYHA class 3 Ischemic cardiomyopathy Lower extremity edema Non-ST elevated myocardial infarction (non-STEMI) Shortness of breath Home Medications aspirin 325 mg tablet,delayed release 325 mg PO DAILY #30 tabs 11/22/17 [Rx Last Taken Unknown] multivitamin,ik-uscl-yjrazuyp 27 mg-0.4 mg tablet 1 tab PO DAILYCM 11/22/17 [Rx Last Taken Unknown] atorvastatin 20 mg tablet 20 mg PO QHS #90 tabs 12/31/17 [Rx Last Taken Unknown] carvedilol 3.125 mg tablet 3.125 mg PO BID #180 tabs 12/31/17 [Rx Last Taken Unknown] clopidogrel 75 mg tablet 75 mg PO DAILY #90 tabs 12/31/17 [Rx Last Taken Unknown] losartan 25 mg tablet 25 mg PO BID #90 tabs 12/31/17 [Rx Last Taken Unknown] furosemide 40 mg tablet 40 mg PO BIDLX PRN edema 08/15/22 [History Last Taken 08/14/22] Allergy/AdvReac Type Severity Reaction Status Date / Time No Known Allergies Allergy Verified 08/14/22 23:14 Family History Mother CAD (coronary artery disease) Surgical History Stented coronary artery (11/21/17) Social History Smoking Status: Current every day smoker tobacco type: cigarettes ROS ROS ED Constitutional Constitutional ED: Denies chills or fever(s) Eyes Eyes: Denies change in vision or diplopia ENT ENT ED: Denies rhinorrhea or sore throat Cardiovascular Cardiovascular: Denies chest pain or palpitations Respiratory/Chest Respiratory/Chest: Denies cough or dyspnea Gastrointestinal Gastrointestinal: Reports abdominal pain, nausea and vomiting Genitourinary Genitourinary ED: Denies dysuria Musculoskeletal Musculoskeletal: Denies arthralgias or back pain Integumentary Denies abscess Neurologic Neurologic: Denies headache(s) Psychiatric Psychiatric: Denies anxiety or depression EXAM Physical Exam Const Vital Signs: 08/14/22 23:11 08/15/22 02:21 08/15/22 02:22 Temperature 97.6 F L 97.6 F L Temperature Source Temporal Temporal Pulse Rate 99 83 Respiratory Rate 16 18 Blood Pressure 173/87 H 156/97 H 156/97 H Blood Pressure Mean 115 116 116 Pulse Ox 94 95 Oxygen Delivery Method Room Air Room Air Positive well nourished General Appearance ED: NAD; Negative for pallor HEENT Reports moist mucous membranes Eyes PERRL and EOMs intact bilaterally Chest Wall inspection of chest normal and palpation of chest normal Resp normal respiratory effort Auscultation: Negative for rales, rhonchi or wheezes Cardio regular rate and regular rhythm GI soft to palpation Palpation: tender epigastric Extremity General Extremety ED: Yes edema General Extremity: edema Neuro oriented x3 and CN's II-XII intact bilaterally Sensorium / Orientation: alert Motor Exam: strength 5/5 throughout Psych Mood & Affect: anxious and tearful Skin General Skin Exam: Negative for jaundice or pallor MDM MDM MDM Narrative Medical decision making narrative: Patient presenting for detox from opioids and alcohol. Last drink was prior to coming in. Patient very tearful. He is medicated with Ativan 1 mg IV. He was given some IV fluids. Given the nausea vomiting I did want to make sure that he did not have anything acute going on. Screening lab work was obtained which included a CBC, CMP, lipase, urine drug screen, EtOH level. I did obtain an EKG, chest x-ray, troponin to rule out ACS given his symptoms and his medical noncompliance. CBC and CMP are unremarkable with exception of a potassium of 3.1. Glucose 134 without anion gap. EtOH 127. Urine drug screen positive for cannabinoids and opiates. Chest x-ray on my interpretation shows minor vascular prominence. The radiologist interprets this and agrees. EKG on my interpretation shows a sinus rhythm at 81 bpm with occasional PVCs. There is a bifascicular block noted. Patient was medicated with Zofran as well to help with nausea. Discussed with hospitalist for admission. Impression: 1. Nausea/vomiting 2. EtOH abuse 3. Opioid abuse Lab Data Attestation: I reviewed the patient's lab results. Labs: Laboratory Results - last 24 hr 08/14/22 08/15/22 23:35 01:22 WBC 7.8 RBC 5.25 Hgb 15.1 Hct 44.9 MCV 85.5 MCH 28.8 MCHC 33.6 RDW Std Deviation 40.7 RDW Coeff of [place] 13.2 Plt Count 254 MPV 9.8 Immature Gran % (Auto) 0.800 Neut % (Auto) 69.4 Lymph % (Auto) 19.4 [place] % (Auto) 8.2 Eos % (Auto) 1.0 Baso % (Auto) 1.2 H Absolute Neuts (auto) 5.4 Absolute Lymphs (auto) 1.52 Nucleated RBC % 0 Sodium 138 Potassium 3.1 L Chloride 99 Carbon Dioxide 28.0 Anion Gap 11 BUN 12 Creatinine 0.83 Estim Creat Clear Calc 83.27 Est GFR (MDRD) Af Amer 120 Est GFR (MDRD) Non-Af 99 BUN/Creatinine Ratio 14.4 Glucose 134 H Calcium 8.7 Total Bilirubin 0.40 AST 32 ALT 33 Alkaline Phosphatase 95 Troponin I High Sens 71 Total Protein 7.3 Albumin 3.8 Globulin 3.5 Albumin/Globulin Ratio 1.1 Lipase 29 Urine Opiates Screen POSITIVE H Urine Methadone Screen NEGATIVE Ur Barbiturates Screen NEGATIVE Ur Phencyclidine Scrn NEGATIVE Ur Amphetamines Screen NEGATIVE MDMA (Ecstasy) Screen NEGATIVE U Benzodiazepines Scrn NEGATIVE Urine Cocaine Screen NEGATIVE U Cannabinoids Screen POSITIVE H Ur Drug Screen Comment Ethyl Alcohol 127.0 Radiography Diagnostic Testing: Clinical Impression(s) from Imaging Studies Chest X-Ray 08/15/22 00:00 IMPRESSION: Mild pulmonary vascular prominence. No angel CHF. Electronically Signed: Chelo Tirado MD at 0:44 EDT , Discharge Plan Disposition Disposition: Acute Care Hospital [facility] Discharge Date/Time: 08/15/22 03:18
[2022-08-14] MEDS: 0.9% Normal Saline 1,000 ML 999 ML IV (23:59)
[2022-08-14] MEDS: LORazepam 2 MG/ML Syringe 1 MG IV (23:59)
[2022-08-15] VITALS (8 sets, daily range): BP systolic 148–184; BP diastolic 79–107; PULSE 69–92; RESP 16–18; TEMP 36.4–37.1; O2SAT 92–97; BMI 24.8
--- NOTE | 2022-08-15 | RAD_ITS ---
EXAM: XR CHEST, 1 VIEW CLINICAL INDICATION: vomiting TECHNIQUE: Frontal view of the chest. COMPARISON: November 19, 2017. FINDINGS: LUNGS AND PLEURAL SPACES: Similar mildly prominent perihilar vessels. No pneumothorax. No infiltrates or effusions. HEART: Mildly decreased apparent cardiomegaly, now upper limits of normal heart size. MEDIASTINUM: Central airways and mediastinal contour are unremarkable. BONES/JOINTS: See above. SOFT TISSUES: Unremarkable. RAD/Chest 1 View (Portable) IMPRESSION: Mild pulmonary vascular prominence. No angel CHF. Electronically Signed: Chelo Tirado MD at 0:44 EDT ,
[2022-08-15 00:02] LABS: ALB/GLOB Ratio 1.1 RATIO (0.9-2.4); AST(SGOT) 32 U/L (15-37); Alanine Aminotransfer ALT/SGPT 33 U/L (16-61); Albumin, Serum 3.8 g/dL (3.2-5.0); Alkaline Phosphatase 95 U/L (45-117); Anion Gap 11 (5-15); BUN 12 mg/dL (7-18); BUN/Creat Ratio 14.4 RATIO (10-20); Calcium,Total 8.7 mg/dL (8.5-10.1); Chloride 99 mmol/L (98-107); Creatinine, Serum 0.83 mg/dL (0.70-1.30); EST Glomerular Filtration Rate 99 mL/min (>60); Est Glom Filt Rate - Afr Amer 120 mL/min (>60); Estimated Creatinine Clearance 83.27 ml/min; Globulin 3.5 g/dL (2.2-4.2); Glucose 134 mg/dL (74-106); Potassium 3.1 mmol/L (3.5-5.1); Protein, Total 7.3 g/dL (6.4-8.2); Sodium Level 138 mmol/L (136-145)
[2022-08-15 00:28] LABS: Lipase 29 U/L (13-75); Troponin-I HS 71 pg/mL (3.0-78.0)
--- NOTE | 2022-08-15 01:36 | EKG12_ITS ---
Test Reason : Blood Pressure : / mmHG Vent. Rate : 081 BPM Atrial Rate : 081 BPM P-R Int : 162 ms QRS Dur : 146 ms QT Int : 466 ms P-R-T Axes : 062 -70 091 degrees QTc Int : 541 ms Sinus rhythm with occasional Premature ventricular complexes Right bundle branch block Left anterior fascicular block Bifascicular block Minimal voltage criteria for LVH, may be normal variant ( R in aVL ) T wave abnormality, consider lateral ischemia Abnormal ECG Confirmed by NARENDRA DURAN, AMI ([id number]), proposal editor SATNAM RAM ([id number]) on 08/19/2022 12:52:53 P M Referred By: Felipe Keyes Confirmed By:NAA MACKEY MD
[2022-08-15 01:49] LABS: Amphetamine Urine VISTA NEGATIVE (<1000 ng/mL); Barbiturate Urine VISTA NEGATIVE (< 200 ng/mL); Benzodiazepine Urine VISTA NEGATIVE (< 200 ng/mL); Cocaine Urine VISTA NEGATIVE (< 300 ng/mL); Ecstacy Urine VISTA NEGATIVE (< 500 ng/mL); Methadone Urine VISTA NEGATIVE (< 300 ng/mL); PCP Urine VISTA NEGATIVE (< 25 ng/mL); THC Urine VISTA POSITIVE (< 50 ng/mL); Vista UDS pH Range 7
--- NOTE | 2022-08-15 02:49 | PCM.HP.STD ---
HPI - General General Date of Admission: 08/15/22 Date of Service: 08/15/22 Chief Complaint: Desire for detoxification HPI Narrative KYLE MANN, is a 62 M with a significant history of ischemic cardiomyopathy; alcohol abuse; opioid abuse and tobacco abuse who presents to the emergency department with help with detoxification. Patient reports that he began drinking heavily 2 years after his . He drinks about 1/5 of whiskey each day. Also by the same time he began using opioids. He is unsure of what he buys. Reportedly he uses about half a gram or more of opioids. The opioids could be fentanyl or heroin. Last time he used either alcohol or opioids was just before he came to the emergency department. He denies any withdrawal symptoms. He has nausea, vomiting and abdominal pain that he attributed to some spaghetti that he ate as his co-partner who ate the same food also had similar symptoms. He reports that his 2 years ago on the same day of presentation. [facility] Medical History Atherosclerosis of [place] coronary artery of [place] heart without angina pectoris Bilateral lower extremity edema Congestive heart failure with LV diastolic dysfunction, NYHA class 3 Ischemic cardiomyopathy Lower extremity edema Non-ST elevated myocardial infarction (non-STEMI) Shortness of breath Home Medications aspirin 325 mg tablet,delayed release 325 mg PO DAILY #30 tabs 11/22/17 [Rx Last Taken Unknown] multivitamin,nd-dvne-owqxahtt 27 mg-0.4 mg tablet 1 tab PO DAILYCM 11/22/17 [Rx Last Taken Unknown] atorvastatin 20 mg tablet 20 mg PO QHS #90 tabs 12/31/17 [Rx Last Taken Unknown] carvedilol 3.125 mg tablet 3.125 mg PO BID #180 tabs 12/31/17 [Rx Last Taken Unknown] clopidogrel 75 mg tablet 75 mg PO DAILY #90 tabs 12/31/17 [Rx Last Taken Unknown] losartan 25 mg tablet 25 mg PO BID #90 tabs 12/31/17 [Rx Last Taken Unknown] furosemide 40 mg tablet 40 mg PO BIDLX PRN edema 08/15/22 [History Last Taken 08/14/22] Allergy/AdvReac Type Severity Reaction Status Date / Time No Known Allergies Allergy Verified 08/14/22 23:14 Family History Mother CAD (coronary artery disease) Surgical History Stented coronary artery (11/21/17) Social History Smoking Status: Current every day smoker tobacco type: cigarettes ROS ROS Narrative Pertinent positives and pertinent negatives as noted in HPI. All other systems were reviewed and are negative Vital Signs Vital Signs Vital Signs: 08/14/22 23:11 08/15/22 02:21 08/15/22 02:22 Temperature 97.6 F L 97.6 F L Temperature Source Temporal Temporal Pulse Rate 99 83 Respiratory Rate 16 18 Blood Pressure 173/87 H 156/97 H 156/97 H Blood Pressure Mean 115 116 116 Pulse Ox 94 95 Oxygen Delivery Method Room Air Room Air Weight Weight: 71.6 kg Body Mass Index (BMI) 25.4 Physical Exam Narrative Physical exam: General: Well-nourished, well-developed. Head: Normocephalic, atraumatic, no tenderness Eyes: Vision is grossly intact. EOMI ENT, no trauma, moist mucous membranes, no rhinorrhea Neck: Nontender, No thyromegaly. CVS: Regular rate and rhythm. S1-S2 present. No murmur, gallop or rub. Respiratory : clear to auscultation bilaterally, chest wall nontender Abdomen: Soft, nontender, nondistended, normal bowel sounds, no masses : Deferred Back: Nontender, no CVA tenderness, no midline spinal tenderness, deformities, step-offs Extremities: Nontender full range of motion, no trauma Skin: Normal color, no trauma, abrasions Neuro: Alert, oriented, cranial nerves II through XII grossly intact. Psychiatry: Normal mood. Normal affect. Not depressed. Not anxious. Results Lab / Micro Data 08/14/22 23:35 08/14/22 23:35 Labs: Laboratory Results - last 24 hr 08/14/22 23:35: WBC 7.8, RBC 5.25, Hgb 15.1, Hct 44.9, MCV 85.5, MCH 28.8, MCHC 33.6, RDW Std Deviation 40.7, RDW Coeff of [place]oco 13.2, Plt Count 254, MPV 9.8, Immature Gran % (Auto) 0.800, Neut % (Auto) 69.4, Lymph % (Auto) 19.4, [place] % (Auto) 8.2, Eos % (Auto) 1.0, Baso % (Auto) 1.2 H, Absolute Neuts (auto) 5.4, Absolute Lymphs (auto) 1.52, Nucleated RBC % 0, Sodium 138, Potassium 3.1 L, Chloride 99, Carbon Dioxide 28.0, Anion Gap 11, BUN 12, Creatinine 0.83, Estim Creat Clear Calc 83.27, Est GFR (MDRD) Af Amer 120, Est GFR (MDRD) Non-Af 99, BUN/Creatinine Ratio 14.4, Glucose 134 H, Calcium 8.7, Total Bilirubin 0.40, AST 32, ALT 33, Alkaline Phosphatase 95, Troponin I High Sens 71, Total Protein 7.3, Albumin 3.8, Globulin 3.5, Albumin/Globulin Ratio 1.1, Lipase 29, Ethyl Alcohol 127.0 08/15/22 01:22: Urine Opiates Screen POSITIVE H, Urine Methadone Screen NEGATIVE, Ur Barbiturates Screen NEGATIVE, Ur Phencyclidine Scrn NEGATIVE, Ur Amphetamines Screen NEGATIVE, MDMA (Ecstasy) Screen NEGATIVE, U Benzodiazepines Scrn NEGATIVE, Urine Cocaine Screen NEGATIVE, U Cannabinoids Screen POSITIVE H, Ur Drug Screen Comment Radiology Impression Chest X-Ray 08/15/22 00:00 IMPRESSION: Mild pulmonary vascular prominence. No angel CHF. Electronically Signed: Chelo Tirado MD at 0:44 EDT , Assessment & Plan Assessment/Plan (1) Desire for detoxification: (2) Stented coronary artery: (3) Ischemic cardiomyopathy: PLAN: Plan Alcohol dependence and desire for detoxification Patient will be started on phenobarbital and other adjunctive medications: Gabapentin as needed; dicyclomine as needed; Vistaril as needed; Imodium as needed; trazodone as needed; Zofran as needed; scheduled thiamine; and schedule folic acid. Monitor CIWA score Opioid dependence and withdrawal Patient be started on Subutex and other adjunctive medications: Gabapentin as needed; dicyclomine as needed; Vistaril as needed; methocarbamol as needed; clonidine as needed; Imodium as needed; trazodone as needed and Zofran as needed. Monitor COWS and CINA score Hypokalemia Potassium 3.1 on presentation. Potassium replacement ordered. Tobacco abuse Counseled Nicotine patch prescribed. Ischemic cardiomyopathy/combined systolic and diastolic dysfunction Echocardiogram on 11/20/2017 reviewed. Echocardiogram with EF of 10% and stage II diastolic function. Stable Aspirin and Lipitor Hypertensive urgency Systolic blood pressure of 184. Home carvedilol continued. As needed labetalol ordered. DVT prophylaxis Lovenox ordered Charges/Coding Visit Charges Inpatient E&M: 22527 Init Hosp L2
[2022-08-15] MEDS: Labetalol (Prefilled) 20 MG/4 ML 10 MG IV (04:44)
[2022-08-15] MEDS: 0.9% Saline Lock 10 ML Syringe IV (04:44)
[2022-08-15] MEDS: Phenobarbital 32.4 MG Tablet 64.8 MG PO ×5 (04:45→21:04)
[2022-08-15] MEDS: Potassium Chloride Oral Tablet 20 MEQ 40 MEQ PO (04:45)
--- NOTE | 2022-08-15 05:17 | NURSING ---
Chuy told this RN he wished to be a DNR, stating he did not want any resuscitation. This RN let Dr Keyes know, who talked to the patient. After conversation with dr barr requesting full code.
[2022-08-15] MEDS: Thiamine Hydrochloride 100 MG Tablet PO (08:22)
[2022-08-15] MEDS: Aspirin E.C. 325 MG Tablet PO (08:22)
[2022-08-15] MEDS: Carvedilol 3.125 MG TABLET PO ×2 (08:22→17:36)
[2022-08-15] MEDS: Enoxaparin 40 MG/0.4 ML Syringe SC (08:22)
[2022-08-15] MEDS: Folic Acid 1 MG Tablet PO (08:22)
--- NOTE | 2022-08-15 11:06 | ADDICTION ---
This loan underwriter met with PT to conduct ASAM, MSE, AUDIT, DUDIT assessments and to plan for d/c. PT A+Ox4 and participated actively. All assessments completed and placed in PT's chart. PT plans to f/u with [facility] in [place] for follow-up outpatient treatment services. PT did not indicate a need for transportation post d/c from [facility].
[2022-08-15] MEDS: Dicyclomine 10 MG Capsule 20 MG PO (13:01)
[2022-08-15] MEDS: hydrOXYzine PAM 25 MG Capsule 50 MG PO (17:39)
--- NOTE | 2022-08-15 20:29 | PCM.HOSP.N ---
Hospitalist Note Patient was seen and examined briefly today, he was admitted for alcohol and narcotic detox, he states he met with the addiction social trains service conductor today. Patient does not complain of excessive nervousness, diaphoresis, or muscle pain at this time. At this time we will continue his present medications and monitor the patient.
[2022-08-16] VITALS (9 sets, daily range): BP systolic 114–166; BP diastolic 85–113; PULSE 69–88; RESP 16–18; TEMP 36.6–37.1; O2SAT 96–99
[2022-08-16] MEDS: Phenobarbital 32.4 MG Tablet 64.8 MG PO ×4 (00:50→12:36)
[2022-08-16] MEDS: Labetalol (Prefilled) 20 MG/4 ML 10 MG IV (04:49)
--- NOTE | 2022-08-16 04:51 | NURSING ---
pts bp evelated 166/103, labetalol 10mg given
[2022-08-16] MEDS: Folic Acid 1 MG Tablet PO (08:28)
[2022-08-16] MEDS: Thiamine Hydrochloride 100 MG Tablet PO (08:28)
[2022-08-16] MEDS: Aspirin E.C. 325 MG Tablet PO (08:28)
[2022-08-16] MEDS: Carvedilol 3.125 MG TABLET PO ×2 (08:28→17:50)
[2022-08-16] MEDS: Enoxaparin 40 MG/0.4 ML Syringe SC (08:28)
--- NOTE | 2022-08-16 17:53 | PN.HOSP_ITS ---
Reason for Visit Reason for Visit: Diagnoses Ischemic cardiomyopathy (08/15/22) Presence of coronary angioplasty implant and graft (08/15/22) Subjective Subjective Patient was seen and examined today, he denies any nervousness or tremor. Patient states he has been sleeping quite a bit and he feels better. I talked with addiction geriatric social work professor and he is already active with an outpatient detox program and will be following up with them after he is discharged from the hospital. Objective Data Objective Data Vital Signs: Vital Signs Temp Pulse Resp BP Pulse Ox O2 Del Method 98.8 F 75 18 156/100 H 99 Room Air 08/16/22 12:00 08/16/22 12:00 08/16/22 12:00 08/16/22 12:00 08/16/22 10:00 08/16/22 12:00 Oxygen Delivery Method Room Air Weight: 69.8 kg Body Mass Index (BMI) 24.8 Intake & Output: Intake and Output for Last 24 Hours 08/14/22 08/15/22 08/16/22 23:59 23:59 23:59 Intake Total 1000 / 1000 360 / 360 Balance 1000 / 1000 360 / 360 Lab / Micro Data 08/14/22 23:35 08/14/22 23:35 Physical Exam Const alert, no apparent distress and average body habitus General Appearance: cooperative, well kempt and well developed Orientation / Consciousness: awake, oriented to person, oriented to place and oriented to time HEENT normocephalic and moist oral mucous membranes Eyes PERRL, EOMs intact bilaterally and conjunctivae normal Neck supple, no JVD, thyroid normal and no carotid bruits General: trachea midline Resp normal respiratory effort, no retractions, no use of accessory muscles and clear to auscultation bilaterally Auscultation: Negative for rales, rhonchi or wheezes Cardio regular rate, regular rhythm, S1 normal heart sound, S2 normal heart sound, no murmurs, no rub and no gallops GI normal to inspection, nondistended, normoactive bowel sounds, soft to palpation, non-tender and non-distended Extremity no clubbing, cyanosis or edema Skin no rashes or lesions noted General Skin Exam: no breakdown Neuro CN's II-XII intact bilaterally, moves all extremities, no focal motor deficits and no sensory deficits noted Sensorium / Orientation: awake, alert, oriented to person and oriented to place Speech: speech normal Psych affect normal Assessment & Plan Assessment/Plan (1) Desire for detoxification: PLAN: Plan 1. Acute alcohol withdrawal-patient is minimally symptomatic at this time, I have elected to decrease his phenobarbital and reevaluate him tomorrow. #2 acute opiate withdrawal-patient again not showing any symptoms of severe narcotic withdrawal, he will be monitored #3 coronary artery disease-appears stable at this time #4 ischemic cardiomyopathy-patient remains on his current medications Total clinical time spent by myself addressing patient's medical issues, reviewing all of his data, and collaborating with patient's care team: 35 minutes Charges/Coding Visit Charges Inpatient E&M: 11017 Subs Hosp L2
[2022-08-16] MEDS: cloNIDine HCl 0.1 MG Tablet PO (20:43)
[2022-08-16] MEDS: Gabapentin 300 MG Capsule PO (20:43)
[2022-08-16] MEDS: traZODone 100 MG Tablet PO (20:43)
[2022-08-17 03:00] VITALS: BP 132/95; PULSE 100; RESP 16; TEMP 36.7; O2SAT 97
[2022-08-17 08:40] VITALS: BP 168/104; PULSE 100; RESP 16; TEMP 36.6; O2SAT 94
[2022-08-17] MEDS: Thiamine Hydrochloride 100 MG Tablet PO (08:46)
[2022-08-17] MEDS: Aspirin E.C. 325 MG Tablet PO (08:46)
[2022-08-17] MEDS: Folic Acid 1 MG Tablet PO (08:46)
[2022-08-17] MEDS: Enoxaparin 40 MG/0.4 ML Syringe SC (08:47)
[2022-08-17] MEDS: Carvedilol 3.125 MG TABLET PO ×2 (09:02→17:24)
--- NOTE | 2022-08-17 11:09 | PCM.PN.HOSP ---
Reason for Visit Reason for Visit: Diagnoses Ischemic cardiomyopathy (08/15/22) Presence of coronary angioplasty implant and graft (08/15/22) Subjective Subjective Patient was seen and examined today, he stated that last night he had some hallucinations and he was restless. This morning he states that he does not feel that he could be discharged. I have elected to continue his present phenobarb dosage and reevaluate him tomorrow. Objective Data Objective Data Vital Signs: Vital Signs Temp Pulse Resp BP Pulse Ox O2 Del Method 97.8 F 100 16 168/104 H 94 Room Air 08/17/22 08:40 08/17/22 08:40 08/17/22 08:40 08/17/22 08:40 08/17/22 08:40 08/17/22 08:40 Oxygen Delivery Method Room Air Weight: 69.8 kg Body Mass Index (BMI) 24.8 Intake & Output: Intake and Output for Last 24 Hours 08/15/22 08/16/22 08/17/22 23:59 23:59 23:59 Intake Total 1000 / 1000 720 / 720 200 / 200 Balance 1000 / 1000 720 / 720 200 / 200 Lab / Micro Data 08/14/22 23:35 08/14/22 23:35 Physical Exam Const alert, oriented x3, no apparent distress and average body habitus General Appearance: cooperative, well kempt and well developed Orientation / Consciousness: awake, oriented to person, oriented to place and oriented to time HEENT normocephalic and moist oral mucous membranes Eyes PERRL, EOMs intact bilaterally and conjunctivae normal Neck supple, no JVD, thyroid normal and no carotid bruits General: trachea midline Resp normal respiratory effort and clear to auscultation bilaterally Auscultation: Negative for rales, rhonchi or wheezes Cardio regular rate, regular rhythm, S1 normal heart sound, S2 normal heart sound, no murmurs, no rub and no gallops GI normal to inspection, nondistended, normoactive bowel sounds, soft to palpation, non-tender and non-distended Extremity no clubbing, cyanosis or edema Skin no rashes or lesions noted General Skin Exam: no breakdown Neuro oriented x3, CN's II-XII intact bilaterally, moves all extremities, no focal motor deficits and no sensory deficits noted Sensorium / Orientation: awake and alert Speech: speech normal Psych affect normal Assessment & Plan Assessment/Plan (1) Desire for detoxification: PLAN: Plan 1. Acute alcohol withdrawal-patient is minimally symptomatic at this time, patient appears to have had a restless night last night, I have elected however to keep him on the same phenobarb dosage, I will reevaluate him tomorrow for discharge. #2 acute opiate withdrawal-patient again not showing any symptoms of severe narcotic withdrawal, he will be monitored #3 coronary artery disease-appears stable at this time #4 ischemic cardiomyopathy-patient remains on his current medications Total clinical time spent by myself addressing patient's medical issues, reviewing all of his data, and collaborating with patient's care team: 35 minutes Charges/Coding Visit Charges Inpatient E&M: 09839 Subs Hosp L2
[2022-08-17] MEDS: cloNIDine HCl 0.1 MG Tablet PO (13:31)
[2022-08-17] MEDS: hydrOXYzine PAM 25 MG Capsule 50 MG PO ×2 (13:31→20:20)
[2022-08-17] MEDS: Ondansetron 8 MG Tablet PO (13:44)
[2022-08-17 13:46] VITALS: BP 121/90; PULSE 130; RESP 20; TEMP 36.6; O2SAT 96
[2022-08-17] MEDS: LORazepam 2 MG/ML Syringe 1 MG IV (14:37)
[2022-08-17 17:20] VITALS: BP 136/85; PULSE 80; RESP 18; TEMP 36.1; O2SAT 94
[2022-08-17 20:14] VITALS: BP 124/99; PULSE 73; RESP 16; TEMP 36.3; O2SAT 97
[2022-08-17] MEDS: Phenobarbital 32.4 MG Tablet PO (20:20)
[2022-08-17] MEDS: traZODone 100 MG Tablet PO (20:20)
[2022-08-17] MEDS: Gabapentin 300 MG Capsule PO (20:20)
[2022-08-17] MEDS: Dicyclomine 10 MG Capsule 20 MG PO (20:20)
[2022-08-18] VITALS: BP 119/98; PULSE 83; RESP 18; TEMP 36.2; O2SAT 94
[2022-08-18] MEDS: hydrOXYzine PAM 25 MG Capsule 50 MG PO (01:48)
[2022-08-18] MEDS: Ondansetron 8 MG Tablet PO (01:48)
[2022-08-18 06:00] VITALS: BP 125/100; PULSE 78; RESP 18; TEMP 36.6; O2SAT 95
[2022-08-18] MEDS: Phenobarbital 32.4 MG Tablet PO ×2 (06:15→10:40)
[2022-08-18] MEDS: Gabapentin 300 MG Capsule PO (06:21)
[2022-08-18 07:56] VITALS: BP 140/110; PULSE 89; RESP 18; TEMP 36.7; O2SAT 95
[2022-08-18] MEDS: Carvedilol 3.125 MG TABLET PO (08:02)
[2022-08-18] MEDS: Aspirin E.C. 325 MG Tablet PO (08:02)
[2022-08-18] MEDS: Folic Acid 1 MG Tablet PO (08:02)
[2022-08-18] MEDS: Thiamine Hydrochloride 100 MG Tablet PO (08:02)
--- NOTE | 2022-08-18 09:23 | DCINST_ITS ---
Discharge Instructions Diet Discharge Diet: No restrictions Activity Discharge Activity: Return to Normal Activity Weight Bearing Status: Full weight bearing Follow Up Care Test Results: Test results from this visit will be discussed in further detail at your follow- up appointment, if applicable. Discharge Plan Admission Admit Date/Time: 08/15/22 02:36 Primary Reason for Your Visit: Alcohol and opiate detox Attending Provider: Riley Mccormick Primary Care Provider: Kojo Rondon Consulting Providers: Felipe Keyes Instructions Additional Instructions / Restrictions: Follow-up with [facility], contact them tomorrow Discharge Orders/Prescriptions Prescriptions: Continued aspirin 325 MG tablet 325 mg PO DAILY Qty: 30 0RF multivitamin,rs-ncqr-cazzqzvy 1 TABLET tablet 1 tab PO DAILYCM 0RF furosemide 40 mg tablet 40 mg PO BIDLX PRN (Reason: edema) atorvastatin 20 mg tablet 20 mg PO QHS Qty: 90 3RF carvedilol 3.125 mg tablet 3.125 mg PO BID Qty: 180 3RF clopidogrel 75 mg tablet 75 mg PO DAILY Qty: 90 3RF losartan 25 mg tablet 25 mg PO BID Qty: 90 3RF Referrals / Follow Up: Kojo Rondon MD [Primary Care Provider] - See Referral Note (At scheduled appointment time) Disposition Disposition (needs filled in before D/C Order can be placed): Home, Self Care
[2022-08-18 09:26] VITALS: BP 140/110; PULSE 89; RESP 16; TEMP 36.7; O2SAT 95
--- NOTE | 2022-08-18 09:26 | DS.PCM_ITS ---
Providers Date of Admission: 08/15/22 Date of Discharge: 08/18/22 Primary Care Physician: Dr. Kojo Rondon MD Reason For Visit: DESIRE OF OPOID AND ALCOHOL DETOXIFICATION Diagnosis Discharge Diagnosis (1) Desire for detoxification: Status: Acute Plan 1. Acute alcohol withdrawal-patient is minimally symptomatic at this time, patient appears to have had a restless night last night, I have elected however to keep him on the same phenobarb dosage, I will reevaluate him tomorrow for discharge. #2 acute opiate withdrawal-patient again not showing any symptoms of severe narcotic withdrawal, he will be monitored #3 coronary artery disease-appears stable at this time #4 ischemic cardiomyopathy-patient remains on his current medications Total clinical time spent by myself addressing patient's medical issues, reviewing all of his data, and collaborating with patient's care team: 35 minutes Medications at Discharge Home Medications aspirin 325 mg tablet,delayed release 325 mg PO DAILY #30 tabs 11/22/17 multivitamin,[id number]-kvcj-[id number] 27 mg-0.4 mg tablet 1 tab PO DAILYCM 11/22/17 atorvastatin 20 mg tablet 20 mg PO QHS #90 tabs 12/31/17 carvedilol 3.125 mg tablet 3.125 mg PO BID #180 tabs 12/31/17 clopidogrel 75 mg tablet 75 mg PO DAILY #90 tabs 12/31/17 losartan 25 mg tablet 25 mg PO BID #90 tabs 12/31/17 furosemide 40 mg tablet 40 mg PO BIDLX PRN edema 08/15/22 Hospital Course Operations None Procedures None Summary of Care Provided Minutes Spent on Discharge: 31 Hospital Course: This 62-year-old white male was seen in the emergency room at [facility] requesting services for alcohol and opiate detox, patient was admitted to PCU, orders were entered using the opiate and alcohol detox order set, patient was monitored and was seen by addiction social and political studies professor. Patient did not have any evidence of severe alcohol withdrawal during his hospitalization although he did have 1 episode of transient hallucination and agitation on 1 day of his hospital stay-this resolved with administration of some Ativan. Unfortunately, he was not given Subutex during his hospital stay-this was a Medicare but the patient again did not show signs of severe opiate withdrawal during his hospitalization. On 08/18/2022, patient was seen and examined: On examination he appeared in good health and spirits. Vital signs as documented. Skin warm and dry and without overt rashes. Neck without JVD, neck was supple, trachea midline, thyroid was normal. Lungs clear bilaterally, normal air movement was noted. Heart exam notable for regular rhythm, normal sounds and absence of murmurs, rubs or ga llops. Abdomen unremarkable and without evidence of organomegaly, masses, or abdominal aortic enlargement. Bowel sounds are present, abdomen is not distended. Extremities nonedematous, no cyanosis was noted, no clubbing was noted. Neuro: Cranial nerves II through XII are grossly intact, no focal motor deficits were noted, sensation to light touch and pinprick intact, motor exam 5/5 throughout. Psych: Patient is alert and oriented x3, he does not appear anxious or depressed, he does not appear agitated. On 08/18/2022, patient was seen and examined and felt to be stable for discharge home. Weight / BMI Weight Weight: 69.8 kg Body Mass Index (BMI) 24.8 ABG / Lab / Microbiology Data 08/14/22 23:35 08/14/22 23:35 D/C Instructions Discharge Diet: No restrictions Weight Bearing Status: Full weight bearing Meaningful Use Info Meaningful Use Diagnoses (Choose all that apply): None applicable Discharge Plan Admission Admit Date/Time: 08/15/22 02:36 Primary Reason for Your Visit: Alcohol and opiate detox Attending Provider: Riley Mccormick Primary Care Provider: Kojo Rondon Consulting Providers: Felipe Keyes Instructions Additional Instructions / Restrictions: Follow-up with [facility], contact them tomorrow Discharge Orders/Prescriptions Prescriptions: Continued aspirin 325 MG tablet 325 mg PO DAILY Qty: 30 0RF multivitamin,ii-nhuy-xldnpmig 1 TABLET tablet 1 tab PO DAILYCM 0RF furosemide 40 mg tablet 40 mg PO BIDLX PRN (Reason: edema) atorvastatin 20 mg tablet 20 mg PO QHS Qty: 90 3RF carvedilol 3.125 mg tablet 3.125 mg PO BID Qty: 180 3RF clopidogrel 75 mg tablet 75 mg PO DAILY Qty: 90 3RF losartan 25 mg tablet 25 mg PO BID Qty: 90 3RF Referrals / Follow Up: Kojo Rondon MD [Primary Care Provider] - See Referral Note (At scheduled appointment time) Disposition Disposition (needs filled in before D/C Order can be placed): Home, Self Care Charges/Coding Visit Charges Inpatient E&M: 32681 Disch Hosp >30min
--- NOTE | 2022-08-18 10:42 | NURSING ---
Pt discharged home in satble condition. He received one last dose of phenobarbital and ambulated out of hospital.
== END 2022-08-18 10:43 | disposition home or self-care (01) | DRG 773 ==
LOC: ED 08-15 00:56 → PCU 08-15 07:28
PROVIDERS: Admitting Provider Hospitalist; Emergency Provider Student in an Organized Health Care Education/Training Program; PCP Family Medicine; Referring Provider Hospitalist; Visit Provider Internal Medicine
DX: F11.23 Opioid dependence with withdrawal (principal); I11.0 Hypertensive heart disease with heart failure; I50.42 Chronic combined systolic (congestive) and diastolic (congestive) heart failure; F10.239 Alcohol dependence with withdrawal, unspecified; E87.6 Hypokalemia; F17.210 Nicotine dependence, cigarettes, uncomplicated; I25.10 Atherosclerotic heart disease of native coronary artery without angina pectoris; I25.5 Ischemic cardiomyopathy; I25.2 Old myocardial infarction; I16.0 Hypertensive urgency; Y90.6 Blood alcohol level of 120-199 mg/100 ml; Z63.4 Disappearance and death of family member; Z95.5 Presence of coronary angioplasty implant and graft; Z79.02 Long term (current) use of antithrombotics/antiplatelets; Z79.82 Long term (current) use of aspirin; Z79.899 Other long term (current) drug therapy; I49.3 Ventricular premature depolarization; I45.2 Bifascicular block
CPT/HCPCS: 36415; 71045; 80053; 80307; 80320; 83690; 84484; 85025; 93005; 96361; 96372; 96374; 96375; 96376; 97802; 99221; 99284; J7030; A4216; G0378; G0480

== ENCOUNTER 2023-08-30 16:31 | Emergency (ER) | payer MEDICAID, SELFPAY ==
[2023-08-30 16:32] VITALS: BP 137/89; PULSE 132; RESP 18; TEMP 37; O2SAT 98; BMI 27.5
--- NOTE | 2023-08-30 16:51 | EX.ED.UPPERE ---
HPI <PATRICK Mcdermott - Last Filed: 08/30/23 17:35> History of Present Illness Chief Complaint: Upper Extremity Injury Narrative Narrative: 63-year-old male was golfing last week and developed swelling at the base of the right thumb. He was hitting golf balls again and now has pain in the forearm muscles. He states the thumb is not really painful but continues to be swollen. He has no weakness or numbness or tingling. He is right-hand dominant. No history of trauma. [facility] <PATRICK Mcdermott - Last Filed: 08/30/23 17:35> [facility] Medical History (Updated 08/30/23 @ 17:14 by PATRICK Mcdermott) Mixed hyperlipidemia Tobacco abuse Essential hypertension Asthma-COPD overlap syndrome Desire for detoxification Ischemic cardiomyopathy Non-ST elevated myocardial infarction (non-STEMI) Atherosclerosis of [place] coronary artery of [place] heart without angina pectoris Congestive heart failure with LV diastolic dysfunction, NYHA class 3 Bilateral lower extremity edema Lower extremity edema Shortness of breath Home Medications ?Medication ?Instructions ?Recorded ?Last Taken ?Type albuterol sulfate 90 mcg/actuation 2 puff inhalation Q4H PRN 11/13/22 Unknown History aerosol inhaler aspirin 81 mg chewable tablet 81 mg PO DAILY 11/13/22 Unknown History budesonide-formoterol HFA 160 2 puff inhalation BID 11/13/22 Unknown History mcg-4.5 mcg/actuation aerosol inhaler carvedilol 6.25 mg tablet 6.25 mg PO BID 11/13/22 Unknown History isosorbide mononitrate 30 mg 30 mg PO DAILY 11/13/22 Unknown History tablet,extended release 24 hr rosuvastatin 10 mg tablet 10 mg PO DAILY 11/13/22 Unknown History naproxen 500 mg tablet (Naprosyn) 500 mg PO BID PRN pain #20 tabs 08/30/23 Unknown Rx Allergy/AdvReac Type Severity Reaction Status Date / Time No Known Allergies Allergy Verified 08/14/22 23:14 Family History Mother CAD (coronary artery disease) Cancer Diabetes Father Cancer Surgical History H/O hand surgery H/O left knee surgery History of dental surgery Stented coronary artery (11/21/17) Social History Smoking Status: Current every day smoker tobacco type: cigarettes alcohol intake: former details: in treatment substance use type: former substance user and heroin ROS <PATRICK Mcdermott - Last Filed: 08/30/23 17:35> ROS ED ROS Narrative Constitutional: Negative for fever, chills. Neuro: Negative for motor/sensory dysfunction. Skin: Negative for rash, abscess, or wound. Musc: Positive for right forearm pain. No trauma. EXAM <PATRICK Mcdermott - Last Filed: 08/30/23 17:35> Physical Exam Narrative Exam Narrative: CONST: Patient sitting in no acute distress. EYES: Normal inspection. SKIN: Color normal, no rash, warm, dry, intact. EXTREMITIES: Mild swelling and tenderness over right proximal anterior forearm muscles especially medially. No bony tenderness of the shoulder elbow wrist or hand. There is swelling over the right thenar eminence. He has 2+ radial pulse and normal motor and sensory function in median radial and ulnar distributions. NEURO: Alert and answering questions appropriately. PSYCH: Normal affect. Const Vital Signs: 08/30/23 16:32 Temperature 98.6 F Temperature Source Temporal Pulse Rate 132 H Respiratory Rate 18 Blood Pressure 137/89 H Blood Pressure Mean 105 Pulse Ox 98 Oxygen Delivery Method Room Air MDM <PATRICK Mcdermott - Last Filed: 08/30/23 17:35> [facility] Narrative Medical decision making narrative: Patient has right forearm pain and right thumb swelling after repeatedly hitting golf balls this week. There is no direct trauma. Extremity is neurovascularly intact. History and physical exam are consistent with golfers elbow. Since there is been no trauma there is no indication for x-rays. The nurse placed an Raffaele wrap and he was given naproxen and an ice pack with orthopedic follow-up. He was discharged in stable condition. <Moustapha Schwab MD - Last Filed: 08/30/23 20:13> [facility] Narrative Medical decision making narrative: Patient has right forearm pain and right thumb swelling after repeatedly hitting golf balls this week. There is no direct trauma. Extremity is neurovascularly intact. History and physical exam are consistent with golfers elbow. Since there is been no trauma there is no indication for x-rays. The nurse placed an Raffaele wrap and he was given naproxen and an ice pack with orthopedic follow-up. He was discharged in stable condition. Dr. Schwab: I have personally performed a face to face assessment of the patient and have reviewed the STRELING Note. I performed a substantive portion of the visit including all aspects of the following. My garcia findings include: History is right elbow pain/proximal forearm pain after hitting golf balls. Thinks tendon is unattached. Exam is afebrile. Vital signs noted. Mild tenderness palpation medial epicondyles and medial proximal forearm. Neurovascular intact distally with palpable radial pulse. Medical Decision Making: No feel x-rays are indicated. He has not had direct trauma. He will be given the number to orthopedics for follow-up and take [id number] medications. Discharge. Other additions or changes: [None] History & Record Review Discussion w/independent historian: Patient Discharge Plan Triage Chief Complaint: Upper Extremity Injury ED Midlevel Provider: Yuridia Castillo ED Provider: Moustapha Schwab Dx/Rx/DC Orders Clinical Impression: Medial epicondylitis, right elbow Instructions: Tendonitis and Tenosynovitis Prescriptions: New naproxen [Naprosyn] 500 mg tablet 500 mg PO BID PRN (Reason: pain) Qty: 20 0RF No Action albuterol sulfate 90 mcg/actuation HFA aerosol inhaler 2 puff inhalation Q4H PRN aspirin 81 mg tablet,chewable 81 mg PO DAILY budesonide-formoterol 160-4.5 mcg/actuation HFA aerosol inhaler 2 puff inhalation BID carvedilol 6.25 mg tablet 6.25 mg PO BID Rx Instructions: must administer with a meal/food isosorbide mononitrate 30 mg tablet extended release 24 hr 30 mg PO DAILY rosuvastatin 10 mg tablet 10 mg PO DAILY Primary Care Provider: Kojo Rondon Referrals: Kojo Rondon MD [Primary Care Provider] - Activity Restrictions/Additional Instructions: This type of tendinitis is called golfers elbow. Treated with rest, ice, compression with Raffaele bandage, and follow-up with the career resource specialist. Print Language: Guamanian Disposition Disposition: Home, Self Care Discharge Date/Time: 08/30/23 17:32
[2023-08-30] MEDS: Naproxen 500 MG Tablet PO (17:27)
[2023-08-30 17:31] VITALS: BP 137/89; PULSE 132; RESP 18; TEMP 37; O2SAT 98
== END 2023-08-30 17:32 | disposition home or self-care (01) ==
LOC: ED 17:26
PROVIDERS: Emergency Provider Emergency Medicine; PCP Family Medicine; Visit Provider Emergency Medicine
DX: M77.01 Medial epicondylitis, right elbow (principal); I11.0 Hypertensive heart disease with heart failure; I50.1 Left ventricular failure, unspecified; J44.9 Chronic obstructive pulmonary disease, unspecified; X58.XXXA Exposure to other specified factors, initial encounter; I25.10 Atherosclerotic heart disease of native coronary artery without angina pectoris; F17.210 Nicotine dependence, cigarettes, uncomplicated; Z95.5 Presence of coronary angioplasty implant and graft; Z79.82 Long term (current) use of aspirin; Z79.899 Other long term (current) drug therapy
CPT/HCPCS: 99282

== ENCOUNTER 2023-09-19 13:07 | Emergency (ER) | payer MEDICAID, SELFPAY ==
[2023-09-19 13:08] VITALS: BP 140/108; BP 154/110; PULSE 110; PULSE 114; RESP 20; RESP 22; TEMP 36.6; O2SAT 95; BMI 28.3
--- NOTE | 2023-09-19 13:20 | RAD_ITS ---
STUDY: X-RAY - RIGHT SHOULDER REASON FOR EXAM: Male, 63 years old. Dislocation from fall. TECHNIQUE: 2 views of the right shoulder. COMPARISON: None. FINDINGS: There is a comminuted fracture of the right mid clavicle, with 1 shaft width inferior displacement. Normal glenohumeral articulation. Normal acromioclavicular joint. Normal acromion. Normal humeral head and visualized proximal humerus. The soft tissue structures are unremarkable. Normal visualized pulmonary apex. RAD/Shoulder min 2 Views IMPRESSION: Comminuted fracture of the right mid clavicle, with 1 shaft width inferior displacement. Electronically Signed: Reed Mariscal MD at 13:50 EDT ,
--- NOTE | 2023-09-19 13:20 | RAD_ITS ---
STUDY: X-RAY - RIGHT CLAVICLE REASON FOR EXAM: Male, 63 years old. FALL TECHNIQUE: 2 views of the right clavicle. COMPARISON: None. FINDINGS: There is a comminuted fracture of the right mid clavicle, with at least 1 shaft width inferior displacement. Normal acromioclavicular articulation. Normal visualized sternoclavicular articulation. Normal visualized pulmonary apex. RAD/Clavicle IMPRESSION: Comminuted fracture of the right mid clavicle, with at least 1 shaft width inferior displacement. Electronically Signed: Reed Mariscal MD at 13:51 EDT ,
--- NOTE | 2023-09-19 13:40 | CT_ITS ---
HISTORY: injury -- right rib injury. TECHNIQUE: Helically acquired images were obtained of the chest without contrast. A radiation dose optimization technique was used for this scan. 879 images. COMPARISON: XR same day, 08/12/2022. FINDINGS: LARGE AIRWAYS: Patent. LUNGS: Mild emphysema. Mild right upper lobe groundglass opacity anterolaterally. PLEURA: No pneumothorax or significant pleural effusion. HEART/PERICARDIUM: Mild cardiomegaly with coronary artery calcification. No pericardial effusion. VESSELS: Thoracic aorta nondilated. Mild atherosclerosis. MEDIASTINUM/PAMELA: No pathologically enlarged adenopathy. UPPER ABDOMEN: Hepatic steatosis. 1.7 cm right adrenal adenoma. BONES: Comminuted and displaced fracture of the right midclavicle with surrounding soft tissue swelling. No dislocation. Nondisplaced right anterolateral third through sixth rib fractures. CT/Chest without Contrast IMPRESSION: Mild right upper lobe pulmonary contusion. Mild pulmonary emphysema. Presence of pulmonary emphysema on CT is an independent risk factor for lung cancer. Consider LDCT lung cancer screening in the future. Comminuted fracture of the right clavicle. Nondisplaced right third through sixth rib fractures. Electronically Signed: Ladonna Portillo MD at 14:31 EDT ,
[2023-09-19] MEDS: HYDROcodone Bitartrate/Apap 5/325 Tablet PO (13:46)
[2023-09-19 15:00] VITALS: BP 141/102; PULSE 81; RESP 17; O2SAT 97
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
[2023-09-19 16:00] VITALS: BP 149/98; PULSE 106; RESP 16; O2SAT 93
[2023-09-19] MEDS: Morphine 4 MG/ML Syringe IV ×2 (16:05→17:45)
[2023-09-19] MEDS: Ondansetron 4 MG/2 ML Vial IV (16:05)
[2023-09-19 16:10] VITALS: BP 149/98; PULSE 106; RESP 17; TEMP 36.7; O2SAT 95
[2023-09-19 16:17] LABS: Absolute Lymphocyte Count 1.46 X10^3/uL (0.83-4.51); Absolute Neutrophil Count 6.2 X10^3/uL (2.0-7.7); Basophil# 0.09 X10^3/uL; Eosinophil# 0.06 X10^3/uL; Eosinophils% 0.7 % (0-5); Hematocrit 46.2 % (40-54); Hemoglobin 15.2 g/dL (13.0-16.5); Lymphocyte # 1.46 X10^3/ul (0.83-4.51); Lymphocyte % 16.7 % (19-41); Mean Corp Hgb Conc 32.9 g/dL (32-36); Mean Corpuscular Hgb 26.2 pg (27.0-32.0); Mean Corpuscular Volume 79.7 fL (80-94); Mean Platelet Vol. 9.4 fl (6.2-12.0); Monocyte# 0.84 X10^3/uL; Monocyte% 9.6 % (0-10); NRBC Flagged by Analyzer 0 % (0-5); Neutrophil # 6.16 X10^3/uL (2.7-7.7); Neutrophil % 70.6 % (47-70); Platelet Count 345 K/mm3 (150-450); RBC Distribution Width CV 16.7 % (11.6-14.6); RBC Distribution Width SD 46.9 fl (35.1-43.9); White Blood Count 8.7 K/mm3 (4.4-11.0)
--- NOTE | 2023-09-19 16:18 | ED.RN ---
REPORT GIVEN TO FALGUNI ED RN AT [facility]. PHYSICIAN ETA 80 MIN
--- NOTE | 2023-09-19 16:22 | CT_ITS ---
INDICATION: fall EXAMINATION: CT BRAIN - CT Head or Brain W/O Contrast Injection TECHNIQUE: Multiple axial images were obtained of the head without intravenous contrast. The protocol utilizes one or more of the following dose reduction techniques: automated exposure control, adjustment of mA and/or kV according to patient size,and/or use of iterative reconstruction technique. IV Contrast dosage and agent: None. RADIATION DOSAGE (If Supplied By Facility): CTDIvol = ( 44.99 ) mGy, DLP = ( 779.24 ) mGycm COMPARISON: CT head 10/24/2007 FINDINGS: BRAIN: No acute bleed. No edema. Mild decreased attenuation in the periventricular white matter bilaterally. Dominguez-white matter differentiation is maintained. Arterial calcifications. VENTRICLES AND SULCI: Not dilated. EXTRA-AXIAL: No hemorrhage, fluid collection, or mass. CALVARIUM / SKULL BASE: Unremarkable. FACE/SINUSES: Unremarkable. SOFT TISSUES: Unremarkable. CT/Brain/Head without Contrast IMPRESSION: No acute abnormality. Chronic microvascular ischemic disease. Electronically Signed: Leandra Cowan MD at 17:10 EDT ,
--- NOTE | 2023-09-19 16:22 | CT_ITS ---
INDICATION: fall EXAMINATION: CT CERVICAL SPINE - CT Spine Cervical W/O Contrast Injection TECHNIQUE: Helically acquired images were obtained of the cervical spine. 2D reformatted images were reviewed. The protocol utilizes one or more of the following dose reduction techniques: automated exposure control, adjustment of mA and/or kV according to patient size,and/or use of iterative reconstruction technique. IV Contrast dosage and agent: None. RADIATION DOSAGE (If Supplied By Facility): CTDIvol = ( 25.42 ) mGy, DLP = ( 547.51 ) mGycm COMPARISON: No relevant prior comparison study available FINDINGS: ALIGNMENT: Minimal anterior subluxation of C3 on C4. MINERALIZATION: Normal. VERTEBRAL BODIES: No fracture or acute abnormality. DISC SPACES: Disc space narrowing with osteophytes most pronounced at C4-C7. POSTERIOR ELEMENTS: Facet arthropathy at several levels. SPINAL CANAL: Mild decreased AP diameter secondary to posterior disc/osteophytes at C4-5 and C5-6. PARASPINAL SOFT TISSUES: Unremarkable. Carotid arterial calcifications. OTHER: Fracture right clavicle appears acute, included on the assistant county attorney view. CT/Spine Cervical without Contras IMPRESSION: No evidence of fracture or traumatic subluxation. Minimal anterolisthesis at C3-4 likely secondary to the degenerative changes. Degenerative changes with mild central canal stenosis. Acute right clavicle fracture. Electronically Signed: Leandra Cowan MD at 17:15 EDT ,
--- NOTE | 2023-09-19 16:22 | CT_ITS ---
EXAM: CT Abdomen And Pelvis W/O Contrast Injection HISTORY: fall TECHNIQUE: Routine protocol CT abdomen and pelvis. IV Contrast: None.. Oral contrast: None. RADIATION DOSAGE (If Supplied By Facility): CTDIvol = ( 12.47 ) mGy, DLP = ( 598.03 ) mGycm Individualized dose optimization techniques were used for this CT. COMPARISON: None. LIMITATIONS: Lack of IV contrast limits evaluation of the solid organs. FINDINGS: LOWER CHEST: Dependent atelectasis in the lung bases. Cardiomegaly. Mild coronary artery calcifications are noted. LIVER: Fatty infiltration. GALLBLADDER AND BILIARY TREE: Grossly unremarkable. PANCREAS: Grossly unremarkable. SPLEEN: Grossly unremarkable. ADRENAL GLANDS: Right adrenal 1.8 cm low-attenuation nodule likely adenoma, no follow-up needed. KIDNEYS AND URETERS: No calculi demonstrated. No hydronephrosis. PERITONEUM: No free air. No free fluid. BOWEL: No bowel obstruction. APPENDIX: Visualized and unremarkable. No evidence of acute appendicitis. VESSELS: Abdominal aorta is normal caliber. REPRODUCTIVE ORGANS: Grossly unremarkable URINARY BLADDER: Grossly unremarkable. ABDOMINAL WALL: Unremarkable. BONES: No acute abnormalities. Degenerative changes of the lumbar spine. Mild vertebral body height loss of L3 with likely Schmorl''s node. No definite acute fracture demonstrated. CT/Abdomen/Pelvis without Cont IMPRESSION: No definite acute findings on noncontrast CT. Electronically Signed: Leandra Cowan MD at 17:21 EDT ,
[2023-09-19 16:27] LABS: International Normalized Ratio 0.9; Prothrombin Time (Protime)PT. 12.2 SECONDS (11.7-14.9)
[2023-09-19 16:29] LABS: Anion Gap 8 (5-15); BUN 8 mg/dL (7-18); BUN/Creat Ratio 8.3 RATIO (10-20); Calcium,Total 8.8 mg/dL (8.5-10.1); Chloride 114 mmol/L (98-107); Creatinine, Serum 0.96 mg/dL (0.70-1.30); EST Glomerular Filtration Rate 84 mL/min (>60); Est Glom Filt Rate - Afr Amer 101 mL/min (>60); Estimated Creatinine Clearance 80.68 ml/min; Glucose 116 mg/dL (74-106); Potassium 4.2 mmol/L (3.5-5.1); Sodium Level 145 mmol/L (136-145)
[2023-09-19 16:56] VITALS: BP 184/108; PULSE 102; RESP 14; O2SAT 93
== END 2023-09-19 17:49 | disposition other institution (70) ==
PROVIDERS: Emergency Provider Emergency Medicine; PCP Family Medicine; Visit Provider Emergency Medicine
DX: S42.021A Displaced fracture of shaft of right clavicle, initial encounter for closed fracture (principal); I11.0 Hypertensive heart disease with heart failure; I50.9 Heart failure, unspecified; J44.9 Chronic obstructive pulmonary disease, unspecified; Z95.5 Presence of coronary angioplasty implant and graft; S22.41XA Multiple fractures of ribs, right side, initial encounter for closed fracture; S27.321A Contusion of lung, unilateral, initial encounter; F17.210 Nicotine dependence, cigarettes, uncomplicated; E78.2 Mixed hyperlipidemia; I25.10 Atherosclerotic heart disease of native coronary artery without angina pectoris; V28.41XA Electric (assisted) bicycle driver injured in noncollision transport accident in traffic accident, initial encounter
CPT/HCPCS: 70450; 71250; 72125; 73000; 73030; 74176; 80048; 85025; 85610; 85730; 96374; 96375; 96376; 99284; A4216; J2405

== ENCOUNTER 2024-02-03 23:51 | Inpatient (IN) | payer MEDICAID, SELFPAY ==
[2024-02-03 23:52] VITALS: BP 183/121; PULSE 146; RESP 28; TEMP 36.6; O2SAT 91; BMI 27.3
[2024-02-03 23:56] VITALS: BP 183/121; PULSE 146; RESP 20; TEMP 36.6; O2SAT 91
--- NOTE | 2024-02-03 23:59 | RAD_ITS ---
EXAM: XR CHEST, 1 VIEW CLINICAL INDICATION: dyspnea TECHNIQUE: Frontal view of the chest. COMPARISON: Single view chest 08/15/2022 FINDINGS: LUNGS AND PLEURAL SPACES: Patchy bilateral airspace disease. No pneumothorax. No effusion. HEART: Unremarkable. Cardiac silhouette not enlarged. MEDIASTINUM: Central airways and mediastinal contour are unremarkable. BONES/JOINTS: Degenerative changes of the spine. Right mid clavicle fracture with surrounding callus formation. SOFT TISSUES: Unremarkable. RAD/Chest 1 View (Portable) IMPRESSION: Patchy bilateral airspace disease. Findings may indicate pneumonia. Electronically Signed: Paddy Madrid MD at 1:31 EST ,
[2024-02-04] VITALS (30 sets, daily range): BP systolic 106–148; BP diastolic 63–103; PULSE 104–136; RESP 14–35; TEMP 35.7–36.4; O2SAT 90–98; BMI 28.0; BMI 27.9
[2024-02-04] MEDS: LORazepam 2 MG/ML Syringe 0.5 MG IV
[2024-02-04] MEDS: Ondansetron 4 MG/2 ML Vial IV
[2024-02-04] MEDS: Morphine 4 MG/ML Syringe IV
[2024-02-04 00:13] LABS: Blood Gas Specimen Type VEN; O2 Delivery Device BiPAP; SITE Not entered; VBG BASE EXCESS -10 mmol/L (-1.0-3.5); VBG Bicarbonate 16 mmol/L (22-26); VBG PO2 69 mmHg (25-40); VBG SO2 92 % (50-70); VBG TCO2 17 mmol/L (23-33); VBG pH 7.33 (7.32-7.42)
[2024-02-04] MEDS: Ipratropium/Albuterol Sulfate 3 ML AMPUL.NEB INHALATION (00:19)
[2024-02-04 00:25] LABS: Anion Gap 16 (5-15); BUN 7 mg/dL (7-18); BUN/Creat Ratio 6.7 RATIO (10-20); Chloride 107 mmol/L (98-107); Creatinine, Serum 1.04 mg/dL (0.70-1.30); EST Glomerular Filtration Rate 76 mL/min (>60); Est Glom Filt Rate - Afr Amer 92 mL/min (>60); Estimated Creatinine Clearance 72.49 ml/min; Glucose 167 mg/dL (74-106); Magnesium 1.8 mg/dL (1.6-2.6); Potassium 4.4 mmol/L (3.5-5.1); Sodium Level 139 mmol/L (136-145)
[2024-02-04 00:29] LABS: Absolute Lymphocyte Count 1.74 X10^3/uL (0.83-4.51); Absolute Neutrophil Count 13.8 X10^3/uL (2.0-7.7); Basophil# 0.11 X10^3/uL; Basophil% 0.7 % (0-1); Eosinophil# 0.09 X10^3/uL; Eosinophils% 0.5 % (0-5); Hematocrit 48.3 % (40-54); Hemoglobin 15.8 g/dL (13.0-16.5); Lymphocyte # 1.74 X10^3/ul (0.83-4.51); Lymphocyte % 10.5 % (19-41); Mean Corp Hgb Conc 32.7 g/dL (32-36); Mean Corpuscular Hgb 28.4 pg (27.0-32.0); Mean Corpuscular Volume 86.9 fL (80-94); Mean Platelet Vol. 10.3 fl (6.2-12.0); Monocyte% 4.2 % (0-10); NRBC Flagged by Analyzer 0.1 % (0-5); Neutrophil # 13.75 X10^3/uL (2.7-7.7); Neutrophil % 82.9 % (47-70); Platelet Count 339 K/mm3 (150-450); RBC Distribution Width CV 17.5 % (11.6-14.6); Red Blood Count 5.56 M/mm3 (4.6-6.2); White Blood Count 16.6 K/mm3 (4.4-11.0)
[2024-02-04 00:49] LABS: BNP,B-Type NATRIURETIC PEPTIDE 554.5 pg/mL (0-100)
[2024-02-04] MEDS: Ceftriaxone 1 GM/50 ML BAG IV (01:02)
[2024-02-04 01:20] LABS: Lactic Acid 4.8 mmol/L (0.4-1.9)
[2024-02-04] MEDS: Azithromycin 500 MG in 0.9% Normal Saline (250mL Bag) 250 ML 250 MG IV (01:43)
[2024-02-04] MEDS: 0.9% Normal Saline (1000mL) 1,000 ML 999 ML IV (01:43)
--- NOTE | 2024-02-04 01:56 | EX.ED.DYSGE1 ---
HPI History of Present Illness Chief Complaint: Shortness of Breath Informant: patient and EMS Narrative Narrative: Patient is a 64-year-old male with history of asthma and COPD who continues to smoke. He states despite his smoking and COPD status he does not require supplemental oxygen at baseline. He also has a history of hypertension and congestive heart failure. He states that this evening he had increasing shortness of breath that was not responding to any type of home treatments and secondary to this he called EMS. EMS states when they arrived his pulse ox was approximately 80% on room air. Therefore EMS states they placed him on a nonrebreather given 125 mg of Solu-Medrol and [facility] Mixed hyperlipidemia Tobacco abuse Essential hypertension Asthma-COPD overlap syndrome Desire for detoxification Ischemic cardiomyopathy Non-ST elevated myocardial infarction (non-STEMI) Atherosclerosis of [place] coronary artery of [place] heart without angina pectoris Congestive heart failure with LV diastolic dysfunction, NYHA class 3 Bilateral lower extremity edema Lower extremity edema Shortness of breath Home Medications ?Medication ?Instructions ?Recorded ?Last Taken ?Type albuterol sulfate 90 mcg/actuation 2 puff inhalation Q4H PRN sob 11/13/22 Unknown History aerosol inhaler aspirin 81 mg chewable tablet 81 mg PO DAILY 11/13/22 Unknown History budesonide-formoterol HFA 160 2 puff inhalation BID 11/13/22 Unknown History mcg-4.5 mcg/actuation aerosol inhaler carvedilol 6.25 mg tablet 6.25 mg PO BID 11/13/22 Unknown History isosorbide mononitrate 30 mg 30 mg PO DAILY 11/13/22 Unknown History tablet,extended release 24 hr rosuvastatin 10 mg tablet 10 mg PO DAILY 11/13/22 Unknown History naproxen 500 mg tablet (Naprosyn) 500 mg PO BID PRN pain #20 tabs 08/30/23 Unknown Rx ipratropium bromide 0.02 % 2.5 ml inhalation Q6H PRN PRN 02/04/24 Unknown History solution for inhalation wheezing Allergy/AdvReac Type Severity Reaction Status Date / Time No Known Allergies Allergy Verified 02/03/24 23:56 Family History Mother CAD (coronary artery disease) Cancer Diabetes Father Cancer Surgical History History of dental surgery H/O hand surgery H/O left knee surgery Stented coronary artery (11/21/17) Social History Smoking Status: Current every day smoker tobacco type: cigarettes alcohol intake: former details: in treatment substance use type: former substance user and heroin ROS ROS ED Constitutional Constitutional ED: Denies chills or fever(s) ENT ENT ED: Denies rhinorrhea or sore throat Cardiovascular Cardiovascular: Reports racing heartbeat; Denies chest pain Respiratory/Chest Respiratory/Chest: Reports cough and dyspnea Gastrointestinal Gastrointestinal: Denies abdominal pain, diarrhea, nausea or vomiting Genitourinary Genitourinary ED: Denies dysuria Musculoskeletal Musculoskeletal: Reports myalgias Integumentary Denies rash Neurologic Neurologic: Denies headache(s) Hematologic/Lymphatic Hematologic/Lymphatic: Denies easy bleeding or easy bruising Allergic/Immunologic Allergic/Immunologic ED: Denies mouth swelling or tongue swelling EXAM Physical Exam Const Vital Signs: 02/03/24 23:52 02/03/24 23:56 02/04/24 00:00 Temperature 97.9 F 97.9 F Temperature Source Axillary Axillary Pulse Rate 146 H 146 H Respiratory Rate 28 H 20 H Respiratory Effort Respiratory Pattern Blood Pressure 183/121 H 183/121 H Blood Pressure Mean 141 141 Pulse Ox 91 91 98 Oxygen Delivery Method Nasal Cannula Bi-pap Bi-pap Oxygen Flow Rate (L/min) 6 Fraction of Inspired Oxygen (FIO2) 45 02/04/24 00:00 02/04/24 00:19 02/04/24 00:19 Temperature Temperature Source Pulse Rate 136 H 129 H Respiratory Rate 35 H 32 H Respiratory Effort Short of Breath Labored Accessory Muscle Use Respiratory Pattern Tachypnea Tachypnea Tachypnea Blood Pressure Blood Pressure Mean Pulse Ox 98 Oxygen Delivery Method Bi-pap Oxygen Flow Rate (L/min) Fraction of Inspired Oxygen (FIO2) 45 02/04/24 00:51 02/04/24 01:36 Temperature 97.6 F L Temperature Source Pulse Rate 128 H 123 H Respiratory Rate 15 24 H Respiratory Effort Respiratory Pattern Blood Pressure 148/97 H 142/96 H Blood Pressure Mean 114 111 Pulse Ox 97 94 Oxygen Delivery Method Oxygen Flow Rate (L/min) Fraction of Inspired Oxygen (FIO2) Positive well nourished and well developed Constitutional Narrative: Patient is in moderate respiratory distress with tachypnea accessory muscle use and dyspnea with speech General Appearance ED: well developed and diaphoretic; Negative for pallor HEENT HEENT Narrative: No tongue or lip swelling no oral lesions no airway edema or compromise Eyes PERRL and EOMs intact bilaterally General Eye ED: Negative for scleral icterus Neck supple and no JVD Chest Wall palpation of chest normal Chest Narrative: No bony deformity or crepitance noted Resp Resp Narrative: Patient is in moderate respiratory distress with tachypnea accessory muscle use and dyspnea with speech Breath sounds are severely diminished throughout with diffuse inspiratory and expiratory wheeze as well as rhonchi in the bilateral bases Cardio regular rhythm Rate: tachycardic and other Other Details: Tachycardic rate with regular rhythm GI normal to inspection, nondistended, normoactive bowel sounds, non-tender, non-distended and no masses GI Narrative: No voluntary guarding or rigidity or pulsatile mass Auscultation: normoactive bowel sounds Palpation: soft Extremity Extremity Narrative: No asymmetric edema no pitting edema negative Homans' sign bilaterally Neuro oriented x3, CN's II-XII intact bilaterally and no sensory deficits noted Sensorium / Orientation: alert Motor Exam: strength 5/5 throughout Psych mental status grossly normal Skin no rashes or lesions noted General Skin Exam: Negative for jaundice or pallor Sepsis Attestation Sepsis Alert: Yes Sepsis Attestation: Agree w/Sepsis Possible Source of Sepsis: Pulmonary Sepsis Organ Dysfunction Criteria Present: Acute Respiratory Failure (New need for BiPAP/CPAP or MV) and Lactic Acid > 2 mmol/L Fluid Resuscitation Fluid resuscitation indicated?: Yes Fluid Resuscitation ordered: Lesser volume fluid bolus ordered Amount of fluid ordered: 1,000 Reason for lesser fluid bolus:: Heart failure MDM MDM MDM Narrative Medical decision making narrative: Patient arrived to the ER tachycardic and hypertensive but afebrile. He was hypoxic for EMS which is not his baseline and he had severe increased work of breathing with tachypnea accessory muscle use and dyspnea with speech. Concern is for COPD exacerbation secondary to COVID influenza RSV versus pneumonia versus pneumothorax versus congestive heart failure. Secondary to this basic blood work was obtained with viral swab and chest x-ray. Chest x-ray revealed haziness in the bilateral bases consistent with pneumonia. This correlates with his elevated white blood cell count and left shift and lactic acidosis. The patient reports he has not been in the hospital in the last 3 months and therefore he was given Rocephin and Zithromax for infection coverage while blood cultures were obtained. As the patient has a history of congestive heart failure and his proBNP is mildly elevated at 554 he will only be given 1 L of fluid in order to prevent worsening respiratory distress from volume overload. The patient was placed on BiPAP upon arrival given repeat breathing treatments and his work of breathing resolved and his pulse ox improved to approximately 95%. At this time as the patient will still become hypoxic to roughly 80% when taken off BiPAP and oxygen he is not safe to return home. Moreover as he is tachycardic and tachypneic with a white count above 12.4 and a lactic above 2 he is triggering sepsis changes which will necessitate IV antibiotics and evaluation in the hospital. Secondary to this the case was discussed with the hospitalist who agrees with plan of care and will admit to the patient ICU for further evaluation and treatment Of note the patient does have a history of opioid and alcohol abuse. He states that he no longer drinks or takes opioids and therefore concern for withdrawal is minimal. History & Record Review Discussion w/independent historian: EMS personnel and Patient Lab Data Attestation: I reviewed the patient's lab results. Labs: Laboratory Results - last 24 hr 02/03/24 02/04/24 00:04 00:40 WBC 16.6 H RBC 5.56 Hgb 15.8 Hct 48.3 MCV 86.9 MCH 28.4 MCHC 32.7 RDW Std Deviation 51.0 H RDW Coeff of [place] 17.5 H Plt Count 339 MPV 10.3 Immature Gran % (Auto) 1.200 H Neut % (Auto) 82.9 H Lymph % (Auto) 10.5 L [place] % (Auto) 4.2 Eos % (Auto) 0.5 Baso % (Auto) 0.7 Absolute Neuts (auto) 13.8 H Absolute Lymphs (auto) 1.74 Nucleated RBC % 0.1 Sodium 139 Potassium 4.4 Chloride 107 Carbon Dioxide 17.0 L Anion Gap 16 H BUN 7 Creatinine 1.04 Estim Creat Clear Calc 72.49 Est GFR (MDRD) Af Amer 92 Est GFR (MDRD) Non-Af 76 BUN/Creatinine Ratio 6.7 L Glucose 167 H Lactic Acid 4.8 H* Calcium 9.0 Magnesium 1.8 B-Natriuretic Peptide 554.5 H ABG Data ABG results: ABG 02/04/24 00:09 Specimen Type CECILE Sample Site Not entered O2 % 45.0 VBG pH 7.33 VBG pO2 69 H VBG HCO3 16 L VBG Total CO2 17 L VBG O2 Sat (Calc) 92 H VBG Base Excess -10 L POC Mix VBG pCO2 Pt Tmp 31.0 L O2 Delivery Device BiPAP Clinical Comments Radiography Diagnostic Testing: Clinical Impression(s) from Imaging Studies Chest X-Ray 02/03/24 23:59 IMPRESSION: Patchy bilateral airspace disease. Findings may indicate pneumonia. Electronically Signed: Paddy Madrid MD at 1:31 EST , Chest x-ray as interpreted by the emergency medicine physician reveals hazy opacities in the bilateral bases greatest on the right consistent with pneumonia Management Discussion w/another healthcare provider: Hospitalist Critical Care Time Critical Care Time: Yes Critical care time (excluding procedures): Discussing w/Patient &/or Family/Nutrition Faculty Member, Discussing w/Consultants and - (Critical care time of 33 minutes) Discharge Plan Dx/Rx/DC Orders Clinical Impression: Acute respiratory failure with hypoxia, Essential hypertension, Tobacco abuse, Pneumonia, Sepsis, COPD (chronic obstructive pulmonary disease) Disposition Disposition: Acute Care Hospital [facility]
--- NOTE | 2024-02-04 01:57 | PCM.HP.STD ---
[facility] - General General Date of Admission: 02/04/24 Date of Service: 02/04/24 Chief Complaint: SOB. HPI Narrative KYLE MANN, is a 64 M with a past medical history of essential hypertension; on carvedilol, hyperlipidemia; on rosuvastatin, overweight; with BMI of 27.4 this admission, chronic and ongoing tobacco abuse; with subsequent Asthma-COPD overlap syndrome, CAD; s/p NSTEMI with stent to mid-LCX (2017), history of ischemic cardiomyopathy, chronic diastolic CHF; with LVEF, history of EtOH abuse; with previous admission here for detoxification (2022), history of heroin abuse; with acute opiate withdrawal (2022) and OA; with history of Left knee surgery on prn naproxen who presents to [facility] ER complaining of SOB. Mr. Mann reports his symptoms began approximately 4 hours prior to arrival with the gradual-onset of dyspnea on exertion that progressed to shortness of breath at rest with severe wheezing and spite of additional home breathing treatments resulting in patient activating EMS. When EMS arrived they noted that his pulse oximeter revealed an oxygen saturation of only 80% on room air therefore he was placed on a nonrebreather mask and treated with 125 mg Solu-Medrol in addition to a DuoNeb. He also admits to congested cough with heart racing and generalized myalgias. He denies associated fever, chills, nausea, vomiting, constipation, diarrhea, abdominal pain, dysuria, hematuria, rash or headache. He additionally denies recent alcohol or opiate abuse and he further explains that his previous admission for detoxification was triggered by the of his as he struggled to cope with his grief. In the ER he was noted to have a chest x-ray positive for evidence of Multifocal Pneumonia with corroborating laboratory signs of sepsis including: Leukocytosis of 16.6 K with Left-shift of 1.2% and Lactic Acidosis of 4.8 mmol/L present on admission complicated by clinical evidence of AE COPD compounded by AE of chronic diastolic CHF; with preserved LVEF evidenced by elevated BNP of 554.5 pg/mL in setting of known Ischemic Cardiomyopathy all combining to cause Acute Hypoxic and Hypercapnic Respiratory Failure requiring BiPAP and he was then admitted to the ICU for treatment under the sepsis protocol for ongoing care for stay that is expected to extend beyond 2 midnights. [facility] Medical History Mixed hyperlipidemia Tobacco abuse Essential hypertension Asthma-COPD overlap syndrome Desire for detoxification Ischemic cardiomyopathy Non-ST elevated myocardial infarction (non-STEMI) Atherosclerosis of [place] coronary artery of [place] heart without angina pectoris Congestive heart failure with LV diastolic dysfunction, NYHA class 3 Bilateral lower extremity edema Lower extremity edema Shortness of breath Home Medications ?Medication ?Instructions ?Recorded ?Last Taken ?Type albuterol sulfate 90 mcg/actuation 2 puff inhalation Q4H PRN sob 11/13/22 02/03/24 History aerosol inhaler aspirin 81 mg chewable tablet 81 mg PO DAILY 11/13/22 Unknown History budesonide-formoterol HFA 160 2 puff inhalation BID sob 11/13/22 02/03/24 History mcg-4.5 mcg/actuation aerosol inhaler carvedilol 6.25 mg tablet 6.25 mg PO BID 11/13/22 Unknown History isosorbide mononitrate 30 mg 30 mg PO DAILY 11/13/22 Unknown History tablet,extended release 24 hr rosuvastatin 10 mg tablet 10 mg PO DAILY 11/13/22 Unknown History naproxen 500 mg tablet (Naprosyn) 500 mg PO BID PRN pain #20 tabs 08/30/23 Unknown Rx ipratropium bromide 0.02 % 2.5 ml inhalation Q6H PRN PRN 02/04/24 Unknown History solution for inhalation wheezing Allergy/AdvReac Type Severity Reaction Status Date / Time No Known Allergies Allergy Verified 02/03/24 23:56 Family History Mother CAD (coronary artery disease) Cancer Diabetes Father Cancer Surgical History History of dental surgery H/O hand surgery H/O left knee surgery Stented coronary artery (11/21/17) Social History Smoking Status: Current every day smoker tobacco type: cigarettes alcohol intake: former details: in treatment substance use type: former substance user and heroin ROS ROS Narrative Review of Systems: Constitutional: Patient denies fever or chills. Eyes: Patient denies changes in vision or discharge from eyes. ENT: Patient denies runny nose, sore throat or ear pain. Resp: Patient admits to shortness of breath with cough and wheezing as per HPI. CV: Patient denies admits to racing heartbeat but he denies chest pain. GI: Patient denies abdominal pain, nausea, vomiting, diarrhea or constipation. : Patient denies dysuria or hematuria. MSK: Patient admits to myalgias but he denies arthralgias. Skin: Patient denies rash, abscess or jaundice. Psych: Patient denies symptoms of uncontrolled depression or anxiety. Neuro: Patient denies headache, paresthesias or focal neurologic deficits. Allergy: Patient denies lip swelling, tongue swelling or urticaria. Hematology: Patient denies easy bleeding or easy bruisability. Endocrinology: Patient denies polyuria, polydipsia or polyphagia. 14 point review of systems otherwise negative except for positives noted above in HPI. Vital Signs Vital Signs Vital Signs: 02/03/24 23:52 02/03/24 23:56 02/04/24 00:00 Temperature 97.9 F 97.9 F Temperature Source Axillary Axillary Pulse Rate 146 H 146 H Respiratory Rate 28 H 20 H Respiratory Effort Respiratory Pattern Blood Pressure 183/121 H 183/121 H Blood Pressure Mean 141 141 Pulse Ox 91 91 98 Oxygen Delivery Method Nasal Cannula Bi-pap Bi-pap Oxygen Flow Rate (L/min) 6 Fraction of Inspired Oxygen (FIO2) 45 02/04/24 00:00 02/04/24 00:19 02/04/24 00:19 Temperature Temperature Source Pulse Rate 136 H 129 H Respiratory Rate 35 H 32 H Respiratory Effort Short of Breath Labored Accessory Muscle Use Respiratory Pattern Tachypnea Tachypnea Tachypnea Blood Pressure Blood Pressure Mean Pulse Ox 98 Oxygen Delivery Method Bi-pap Oxygen Flow Rate (L/min) Fraction of Inspired Oxygen (FIO2) 45 02/04/24 00:51 02/04/24 01:36 Temperature 97.6 F L Temperature Source Pulse Rate 128 H 123 H Respiratory Rate 15 24 H Respiratory Effort Respiratory Pattern Blood Pressure 148/97 H 142/96 H Blood Pressure Mean 114 111 Pulse Ox 97 94 Oxygen Delivery Method Oxygen Flow Rate (L/min) Fraction of Inspired Oxygen (FIO2) Weight Weight: 175 lb 0.752 oz Body Mass Index (BMI) 27.3 Physical Exam Const alert, oriented x3, no apparent distress and average body habitus Constitutional Narrative: Patient appears disheveled with chronically ill appearance but he is in good spirits. General Appearance: cooperative HEENT normocephalic, head/scalp atraumatic, hearing grossly normal bilaterally and moist oral mucous membranes Eyes PERRL and EOMs intact bilaterally Neck no lymphadenopathy and supple Resp Resp Narrative: Diminished breath sounds throughout with scattered wheezes. Auscultation: wheezes Cardio regular rate and regular rhythm Cardio Narrative: Patient's tachycardia is regular and improved to ~120 bpm. GI normal to inspection, nondistended, normoactive bowel sounds, soft to palpation, non-tender and non-distended Extremity full ROM Extremity Narrative: Patient has mild LE edema. Skin Skin Narrative: Patient has no evidence of rash, abscess or jaundice. Neuro oriented x3, CN's II-XII intact bilaterally, moves all extremities and no focal motor deficits Sensorium / Orientation: awake, alert, oriented to person, oriented to place and oriented to time Speech: speech normal Psych affect normal Results Medical Records Data Attestation: I reviewed the patient's medical records Lab / Micro Data Attestation: I reviewed the patient's lab results. 02/03/24 00:04 02/03/24 00:04 Labs: Laboratory Results - last 24 hr 02/03/24 00:04: WBC 16.6 H, RBC 5.56, Hgb 15.8, Hct 48.3, MCV 86.9, MCH 28.4, MCHC 32.7, RDW Std Deviation 51.0 H, RDW Coeff of [place] 17.5 H, Plt Count 339, MPV 10.3, Immature Gran % (Auto) 1.200 H, Neut % (Auto) 82.9 H, Lymph % (Auto) 10.5 L, [place] % (Auto) 4.2, Eos % (Auto) 0.5, Baso % (Auto) 0.7, Absolute Neuts (auto) 13.8 H, Absolute Lymphs (auto) 1.74, Nucleated RBC % 0.1, Sodium 139, Potassium 4.4, Chloride 107, Carbon Dioxide 17.0 L, Anion Gap 16 H, BUN 7, Creatinine 1.04, Estim Creat Clear Calc 72.49, Est GFR (MDRD) Af Amer 92, Est GFR (MDRD) Non-Af 76, BUN/Creatinine Ratio 6.7 L, Glucose 167 H, Calcium 9.0, Magnesium 1.8, B-Natriuretic Peptide 554.5 H 02/04/24 00:40: Lactic Acid 4.8 H* Micro: Microbiology 02/03/24 00:04 Mucosa - Nose SARS-CoV-2, Influenza & RSV (PCR) - Final ABG Data ABG results: ABG 02/04/24 00:09 Specimen Type CECILE Sample Site Not entered O2 % 45.0 VBG pH 7.33 VBG pO2 69 H VBG HCO3 16 L VBG Total CO2 17 L VBG O2 Sat (Calc) 92 H VBG Base Excess -10 L POC Mix VBG pCO2 Pt Tmp 31.0 L O2 Delivery Device BiPAP Clinical Comments Imaging Radiology Impression Chest X-Ray 02/03/24 23:59 IMPRESSION: Patchy bilateral airspace disease. Findings may indicate pneumonia. Electronically Signed: Paddy Madrid MD at 1:31 EST , Assessment & Plan Assessment/Plan (1) Sepsis: QUALIFIERS: Acute respiratory failure type: with hypoxia Sepsis acute organ dysfunction status: with acute organ dysfunction Sepsis type: sepsis due to unspecified organism Severe sepsis acute organ dysfunction type: acute respiratory failure Severe sepsis shock status: without septic shock Qualified Code(s): A41.9 - Sepsis, unspecified organism; R65.20 - Severe sepsis without septic shock; J96.01 - Acute respiratory failure with hypoxia (2) Multifocal pneumonia: (3) Asthma-COPD overlap syndrome: (4) Tobacco abuse: (5) Congestive heart failure with LV diastolic dysfunction, NYHA class 3: (6) Ischemic cardiomyopathy: (7) Acute respiratory failure with hypoxia and hypercapnia: (8) Overweight (BMI 25.0-29.9): (9) Stented coronary artery: (10) Atherosclerosis of [place] coronary artery of [place] heart without angina pectoris: PLAN: Plan 1. Sepsis due to Multifocal Pneumonia; evidenced by leukocytosis of 16.6K with Left-shift of 1.2% and Lactic Acidosis of 4.8 mmol/L present on admission - Admit to ICU for treatment under the Sepsis protocol. Start empiric IV Vancomycin and IV Zosyn and await culture and sensitivity data. Check urinary antigens to Streptococcus pneumonia and Legionella. Serialize lactate. Give scheduled Mucinex 1200 mg p.o. twice daily. Give Tylenol as needed for [id number] (level 1-5/10) pain or fever. Give tramadol prn for severe (level 6-10/10) pain due to patient's history of opiate/heroin abuse. 2. Acute Exacerbation of Asthma-COPD overlap syndrome in the setting of chronic and ongoing tobacco abuse complicating #1 - Continue IV Solumedrol begun in the ER plus resume scheduled and prn nebulizers as before. We will start Protonix 40 mg p.o. daily for GI prophylaxis while patient is on high-dose steroids. Tobacco Cessation will be strongly encouraged with Nicotine patch offered to control cravings. 3. Acute Exacerbation of Chronic Diastolic CHF; with preserved LVEF evidenced by elevated BNP of 554.5 pg/mL present on admission in the setting of known ischemic cardiomyopathy compounding #1 & #2 - We will diminish typical sepsis fluid bolus to prevent worsening volume overload and potential decline in already tenuous respiratory status. Check echocardiogram to evaluate LVEF. Serial labs troponin. Start IV furosemide in a.m. if vital signs are stable and infection outlined in #1 is well-controlled. 4. Acute Hypoxic and Hypercapnic respiratory failure requiring BiPAP arising from #1 - #3 - Wean BiPAP as tolerated. Patient does not typically use supplemental oxygen at home. 5. Overweight; with BMI of 27.4 this admission adding to the medical complexity of #1 - #4 - Weight loss will be recommended. Check TSH. This complicates his case and may hamper recovery. 6. CAD; s/p NSTEMI with stent to mid-LCX (2017) - Stable. Continue BASA. Serialize troponin. 7. History of EtOH abuse; with previous admission here for detoxification and history of heroin abuse; with acute opiate withdrawal (2022) - Noted with patient currently denying current EtOH or opiate abuse. [place] UDS pending along with B12 and folate levels. We will start Phenobarbital taper if patient begins to show signs and/or symptoms of EtOH withdrawal. 8. Essential hypertension; on carvedilol - Hold scheduled antihypertensives until infection outlined #1 has been neutralized. 9. Hyperlipidemia; on rosuvastatin - Maintain statin therapy and check Lipid Profile this admission. 10. OA; with history of Left knee surgery on prn naproxen - Give Tylenol prn pain or fever. 11. DVT/GI prophylaxis - Lovenox 40 mg sq daily plus SCD's. Start Protonix 40 mg p.o. daily for GI prophylaxis while he is requiring high-dose steroids. Total time: Approximately (but not less than) 75 minutes. Sepsis Attestation Sepsis Alert: Yes Sepsis Attestation: Sepsis Ruled Out Date exam was performed: 02/04/24 Time exam was performed: 02:30 Possible Source of Sepsis: Pulmonary Sepsis Organ Dysfunction Criteria Present: Acute Respiratory Failure (New need for BiPAP/CPAP or MV) and Lactic Acid > 2 mmol/L Fluid Resuscitation Fluid resuscitation indicated?: Yes Fluid Resuscitation ordered: Lesser volume fluid bolus ordered Amount of fluid ordered: 2 Reason for lesser fluid bolus:: Concern for fluid overload and Heart failure Sepsis Note Date exam was performed: 02/04/24 Time exam was performed: 06:30 Sepsis Attestation: Sepsis re-evaluation was performed Response to fluids: Fluid responsive hypotension Charges/Coding Visit Charges Inpatient E&M: 56351 Init Hosp L3
[2024-02-04] MEDS: Morphine 2 MG/ML Syringe IV (02:06)
--- NOTE | 2024-02-04 02:27 | ED.RN ---
This patient qualifies for the fluid resuscitation protocol. Due to the patient's elevated BNP and history, per MD orders the patient will only be receiving 1L of fluids.
[2024-02-04 02:37] LABS: Allen Test Positive; Base Excess -4 mmol/L (-2 to +2); Bicarbonate 20.7 mmol/L (22-26); Blood Gas Specimen Type ART; Mode Not entered; O2 Delivery Device Cannula; PO2 65 mmHG (75-100); SITE L Radial; SO2 92 % (95-99); Total Carbon Dioxide 22 mmol/L; pH 7.38 (7.35-7.45)
[2024-02-04] MEDS: guaiFENesin 1,200 MG Tablet 1200 MG PO ×3 (02:53→22:10)
[2024-02-04] MEDS: MethylPREDNISolone 125 MG/2 ML Vial 60 MG IV ×3 (03:18→22:10)
[2024-02-04] MEDS: 0.9% Saline Lock 10 ML Syringe IV ×3 (03:19→22:10)
[2024-02-04] MEDS: Vancomycin HCl 2,000 MG in 0.9% Normal Saline (500mL Bag) 500 ML 250 MG IV (03:23)
--- NOTE | 2024-02-04 03:35 | PCM.RX.CS ---
Consult Antibiotic Management Pharmacy has been consulted to manage selected antibiotic: Vancomycin Type of Intervention Type of Consult: New start Suspected Infection Suspected Infection: Sepsis and Pneumonia Labs Labs: Sodium 139 mmol/L (136-145) 02/03/24 00:04 Potassium 4.4 mmol/L (3.5-5.1) 02/03/24 00:04 Chloride 107 mmol/L (98-107) 02/03/24 00:04 Carbon Dioxide 17.0 mmol/L (21.0-32.0) L 02/03/24 00:04 Anion Gap 16 (5-15) H 02/03/24 00:04 BUN 7 mg/dL (7-18) 02/03/24 00:04 Creatinine 1.04 mg/dL (0.70-1.30) 02/03/24 00:04 Est GFR (MDRD) Af Amer 92 mL/min (>60) 02/03/24 00:04 Est GFR (MDRD) Non-Af 76 mL/min (>60) 02/03/24 00:04 BUN/Creatinine Ratio 6.7 RATIO (10-20) L 02/03/24 00:04 Glucose 167 mg/dL (74-106) H 02/03/24 00:04 Microbiology Microbiology: Microbiology 02/03/24 00:04 Mucosa - Nose SARS-CoV-2, Influenza & RSV (PCR) - Final Dosing Weight Weight used for dosin.8 kg Estimated Creatinine Clearance Estimated Creatinine Clearance: 72 Goal Trough Goal Trough: 15-20 mcg/mL Pharmacy Plan for Drug Dosing Pharmacy Plan for Drug Dosing: Pharmacy Service will continue to monitor and adjust dosing as required. Follow-Up Labs Follow-Up Labs: Trough: Vancomycin Date/Time Labs Ordered Labs to be done on [date and time ordered]: 02/05/24 @1500
[2024-02-04 04:45] LABS: Reflex Lactate? Y
--- NOTE | 2024-02-04 05:35 | RAD_ITS ---
EXAM: XR CHEST, 1 VIEW CLINICAL INDICATION: Multifocal PNA, AE COPD and AECHF. TECHNIQUE: Frontal view of the chest. COMPARISON: Single view chest from same date. FINDINGS: LUNGS AND PLEURAL SPACES: Patchy bilateral airspace disease. No pneumothorax. No effusion. HEART: Moderate enlargement of the cardiac silhouette. MEDIASTINUM: Central airways and mediastinal contour are unremarkable. BONES/JOINTS: Unremarkable. No acute fracture. SOFT TISSUES: Unremarkable. RAD/Chest 1 View (Portable) IMPRESSION: Patchy bilateral airspace disease. Findings may indicate pneumonia. Electronically Signed: Paddy Madrid MD at 6:57 EST ,
[2024-02-04 05:38] LABS: Alcohol, Blood (Medical)-Serum < 3.0 mg/dL
[2024-02-04 05:43] LABS: Cholesterol 193 mg/dL (200); High Density Lipoprotein 70 mg/dL; Triglycerides 76 mg/dL; Very Low Density Lipoprotein 15 mg/dL (5-40)
[2024-02-04 05:56] LABS: Lactic Acid 3.3 mmol/L (0.4-1.9)
[2024-02-04] MEDS: Piperacil/Tazobactam 3.375 GM in 0.9% Normal Saline (50mL MB+) 50 ML IV ×3 (06:04→18:31)
[2024-02-04] MEDS: Aspirin 81 MG TAB.CHEW PO (07:58)
[2024-02-04] MEDS: Ascorbic Acid 500 MG Tablet 1000 MG PO ×2 (07:59→17:25)
[2024-02-04] MEDS: traMADol 50 MG Tablet PO (07:59)
[2024-02-04 08:23] LABS: BNP,B-Type NATRIURETIC PEPTIDE 2256.3 pg/mL (0-100)
--- NOTE | 2024-02-04 08:35 | ECHOCS_ITS ---
Reason For Study: SOB Procedure This was a 2D Doppler, Color Flow transthoracic echocardiogram. The study was technically difficult. Contrast injection was performed. Exam performed portable in patient room. Left Ventricle Severely dilated left ventricle. The left ventricular ejection fraction is 10 %. There is severe global hypokinesis of the left ventricle. Right Ventricle Normal RV size. Normal systolic function. Atria The left atrium is moderately enlarged. Normal right atrium. Mitral Valve Normal mitral valve. Mild-Moderate (1-2+) eccentric mitral valve insufficiency. Tricuspid Valve Normal tricuspid valve. Moderate (2+) tricuspid valve insufficiency. Pulmonary artery systolic pressure is 64 mmHg. Aortic Valve Trisinus/trileaflet aortic valve. Pulmonic Valve Normal pulmonic valve. Great Vessels Normal aortic root. The pulmonary artery is normal size. Normal inferior vena cava. Pericardium/Pleural No pericardial effusion. Medication Diluted definity 1.5ml given slow IV push to enhance endocardial definition. MMode/2D Measurements & Calculations LVIDd: 7.0 cm IVSd: 1.0 cm LVOT diam: 2.0 cm LVIDs: 6.7 cm LVPWd: 1.4 cm RVDd: 4.0 cm FS: 4.3 % LVOT area: 3.2 cm2 Ao root diam: 3.5 cm LAV(MOD-bp): 107.3 ml LVAd ap4: 72.2 cm2 LAV(MOD-bp) Indexed: 57.1 ml/m2 LVLd ap4: 10.8 cm LAV(MOD-sp2): 101.6 ml EDV(MOD-sp4): 401.7 ml LAV(MOD-sp4): 96.4 ml EDV(sp4-el): 410.0 ml LVAs ap4: 67.4 cm2 LVLs ap4: 10.4 cm ESV(MOD-sp4): 362.7 ml ESV(sp4-el): 370.0 ml EF(MOD-sp4): 9.7 % EF(sp4-el): 9.8 % SV(MOD-sp4): 39.0 ml SV(sp4-el): 40.0 ml LA A4 area: 28.6 cm2 SI(MOD-sp4): 20.7 ml/m2 LA dimension(2D): 4.9 cm RA A4 area: 19.6 cm2 Doppler Measurements & Calculations Ao V2 max: 102.3 cm/sec LV V1 max: 91.3 cm/sec SV(LVOT): 34.8 ml Ao max P.2 mmHg LV V1 max P.4 mmHg Ao V2 mean: 79.5 cm/sec LV V1 mean P.9 mmHg Ao mean P.8 mmHg LV V1 mean: 65.0 cm/sec Ao V2 VTI: 13.2 cm LV V1 VTI: 10.8 cm AV (velocity ratio): 0.82 LEV(I,D): 2.6 cm2 LEV(V,D): 2.9 cm2 PA V2 max: 65.4 cm/sec TR max maribell: 372.1 cm/sec PA V2 mean: 43.5 cm/sec TR max P.4 mmHg ECHO/Echo Complete W/ Contrast Interpretation Summary The left ventricular ejection fraction is 10 %. Severely dilated left ventricle. Pulmonary artery systolic pressure is 64 mmHg. Compared to the echocardiogram from 6 years ago the above is unchanged. Ordering Physician: Gustavo Wilcox Performed By: Estela Perez RCS
[2024-02-04] MEDS: Enoxaparin 40 MG/0.4 ML Syringe SC (09:20)
[2024-02-04] MEDS: Cholecalciferol (Vit D3) 125 MCG CAPSULE (5,000 UNITS) PO (09:20)
[2024-02-04] MEDS: Lactobacillis Acidophilus 1 CAP PO ×2 (09:20→14:18)
[2024-02-04] MEDS: Zinc Sulfate 50 mg zinc (220 mg) ORAL capsule PO (09:21)
[2024-02-04] MEDS: Pantoprazole Sodium 40 MG Tablet PO (09:21)
[2024-02-04] MEDS: Furosemide 40 MG/4 ML Vial IV (09:27)
[2024-02-04 09:49] LABS: Amphetamine Urine VISTA NEGATIVE (<1000 ng/mL); Barbiturate Urine VISTA NEGATIVE (< 200 ng/mL); Benzodiazepine Urine VISTA NEGATIVE (< 200 ng/mL); Cocaine Urine VISTA NEGATIVE (< 300 ng/mL); Ecstacy Urine VISTA NEGATIVE (< 500 ng/mL); Methadone Urine VISTA NEGATIVE (< 300 ng/mL); PCP Urine VISTA NEGATIVE (< 25 ng/mL); THC Urine VISTA POSITIVE (< 50 ng/mL); Vista UDS pH Range 5
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
[2024-02-04] MEDS: Vancomycin IV 1,000 MG/200 ML BAG 200 MG IV (15:56)
[2024-02-04] MEDS: Ipratropium 0.5 MG/2.5 ML SOLUTION INHALATION (19:15)
[2024-02-04] MEDS: MELATONIN 3 MG TABLET PO (22:40)
[2024-02-05] VITALS (8 sets, daily range): BP systolic 129–141; BP diastolic 75–105; PULSE 83–108; RESP 14–20; TEMP 36.3–36.6; O2SAT 94–99; BMI 28.0
[2024-02-05] MEDS: 0.9% Saline Lock 10 ML Syringe IV ×2 (03:25→22:01)
[2024-02-05] MEDS: Vancomycin IV 1,000 MG/200 ML BAG 200 MG IV (03:25)
[2024-02-05] MEDS: Piperacil/Tazobactam 3.375 GM in 0.9% Normal Saline (50mL MB+) 50 ML IV (06:20)
[2024-02-05] MEDS: Ipratropium 0.5 MG/2.5 ML SOLUTION INHALATION ×2 (06:31→20:05)
[2024-02-05 06:33] LABS: Absolute Lymphocyte Count 0.36 X10^3/uL (0.83-4.51); Absolute Neutrophil Count 11.6 X10^3/uL (2.0-7.7); Basophil# 0.01 X10^3/uL; Basophil% 0.1 % (0-1); Hematocrit 40.6 % (40-54); Hemoglobin 12.9 g/dL (13.0-16.5); Lymphocyte # 0.36 X10^3/ul (0.83-4.51); Lymphocyte % 2.9 % (19-41); Mean Corp Hgb Conc 31.8 g/dL (32-36); Mean Corpuscular Hgb 27.7 pg (27.0-32.0); Mean Corpuscular Volume 87.1 fL (80-94); Mean Platelet Vol. 10.2 fl (6.2-12.0); Monocyte# 0.46 X10^3/uL; Monocyte% 3.7 % (0-10); NRBC Flagged by Analyzer 0 % (0-5); Neutrophil # 11.62 X10^3/uL (2.7-7.7); Neutrophil % 92.6 % (47-70); POSITIVE DIFFERENTIAL YES; Platelet Count 219 K/mm3 (150-450); RBC Distribution Width SD 50.5 fl (35.1-43.9); Red Blood Count 4.66 M/mm3 (4.6-6.2); White Blood Count 12.5 K/mm3 (4.4-11.0)
[2024-02-05 07:18] LABS: Anion Gap 8 (5-15); BUN 28 mg/dL (7-18); BUN/Creat Ratio 17.1 RATIO (10-20); Calcium,Total 8.8 mg/dL (8.5-10.1); Chloride 107 mmol/L (98-107); Creatinine, Serum 1.64 mg/dL (0.70-1.30); EST Glomerular Filtration Rate 45 mL/min (>60); Est Glom Filt Rate - Afr Amer 55 mL/min (>60); Estimated Creatinine Clearance 44.95 ml/min; Glucose 196 mg/dL (74-106); Potassium 4.4 mmol/L (3.5-5.1); Sodium Level 136 mmol/L (136-145)
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
[2024-02-05] MEDS: guaiFENesin 1,200 MG Tablet 1200 MG PO ×2 (09:25→22:01)
[2024-02-05] MEDS: Ascorbic Acid 500 MG Tablet 1000 MG PO (09:26)
[2024-02-05] MEDS: Aspirin 81 MG TAB.CHEW PO (09:26)
[2024-02-05] MEDS: Pantoprazole Sodium 40 MG Tablet PO (09:26)
[2024-02-05] MEDS: Enoxaparin 40 MG/0.4 ML Syringe SC (09:27)
[2024-02-05] MEDS: Cholecalciferol (Vit D3) 125 MCG CAPSULE (5,000 UNITS) PO (09:27)
[2024-02-05] MEDS: MethylPREDNISolone 125 MG/2 ML Vial 60 MG IV (09:27)
[2024-02-05 12:53] LABS: Vitamin B12 433 pg/mL (211-911)
[2024-02-05] MEDS: Ampicillin/Sulbactam 3 GM in 0.9% Normal Saline (100mL MB+) 100 ML IV ×2 (13:11→22:02)
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
[2024-02-05] MEDS: Atorvastatin Calcium 20 MG Tablet PO (22:01)
[2024-02-05] MEDS: MELATONIN 3 MG TABLET PO (22:01)
[2024-02-06] VITALS (12 sets, daily range): BP systolic 121–147; BP diastolic 88–114; PULSE 55–114; RESP 12–22; TEMP 36.4–36.6; O2SAT 95–100; BMI 29.2
[2024-02-06] MEDS: 0.9% Saline Lock 10 ML Syringe IV ×4 (05:56→22:59)
[2024-02-06] MEDS: Ampicillin/Sulbactam 3 GM in 0.9% Normal Saline (100mL MB+) 100 ML IV ×3 (05:57→22:58)
[2024-02-06] MEDS: Ipratropium 0.5 MG/2.5 ML SOLUTION INHALATION ×4 (06:57→20:42)
[2024-02-06 07:45] LABS: Absolute Lymphocyte Count 0.41 X10^3/uL (0.83-4.51); Absolute Neutrophil Count 9.7 X10^3/uL (2.0-7.7); Basophil# 0.01 X10^3/uL; Basophil% 0.1 % (0-1); Hematocrit 40.7 % (40-54); Hemoglobin 13.1 g/dL (13.0-16.5); Lymphocyte # 0.41 X10^3/ul (0.83-4.51); Lymphocyte % 3.8 % (19-41); Mean Corp Hgb Conc 32.2 g/dL (32-36); Mean Corpuscular Hgb 28.4 pg (27.0-32.0); Mean Corpuscular Volume 88.1 fL (80-94); Mean Platelet Vol. 10.6 fl (6.2-12.0); Monocyte# 0.62 X10^3/uL; Monocyte% 5.7 % (0-10); NRBC Flagged by Analyzer 0.4 % (0-5); Neutrophil # 9.73 X10^3/uL (2.7-7.7); Neutrophil % 89.1 % (47-70); POSITIVE DIFFERENTIAL YES; Platelet Count 213 K/mm3 (150-450); RBC Distribution Width CV 17.7 % (11.6-14.6); RBC Distribution Width SD 51.2 fl (35.1-43.9); Red Blood Count 4.62 M/mm3 (4.6-6.2); White Blood Count 10.9 K/mm3 (4.4-11.0)
[2024-02-06] MEDS: Aspirin 81 MG TAB.CHEW PO (09:00)
[2024-02-06] MEDS: guaiFENesin 1,200 MG Tablet 1200 MG PO ×2 (09:00→22:58)
[2024-02-06] MEDS: Ascorbic Acid 500 MG Tablet 1000 MG PO ×2 (09:00→17:38)
[2024-02-06] MEDS: Cholecalciferol (Vit D3) 125 MCG CAPSULE (5,000 UNITS) PO (09:00)
[2024-02-06] MEDS: Pantoprazole Sodium 40 MG Tablet PO (09:00)
[2024-02-06] MEDS: Enoxaparin 40 MG/0.4 ML Syringe SC (09:02)
--- NOTE | 2024-02-06 09:20 | PN.HOSP_ITS ---
Reason for Visit Reason for Visit: Diagnoses Sepsis, unspecified organism (02/04/24) Overweight (02/04/24) Non-ST elevation (NSTEMI) myocardial infarction (02/04/24) Atherosclerotic heart disease of [place] coronary artery without angina pectoris
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
[2024-02-06 09:42] LABS: Anion Gap 6 (5-15); BUN 33 mg/dL (7-18); BUN/Creat Ratio 23.2 RATIO (10-20); Calcium,Total 8.8 mg/dL (8.5-10.1); Chloride 109 mmol/L (98-107); Creatinine, Serum 1.42 mg/dL (0.70-1.30); EST Glomerular Filtration Rate 53 mL/min (>60); Est Glom Filt Rate - Afr Amer 65 mL/min (>60); Estimated Creatinine Clearance 52.87 ml/min; Glucose 184 mg/dL (74-106); Potassium 4.4 mmol/L (3.5-5.1); Sodium Level 138 mmol/L (136-145)
--- NOTE | 2024-02-06 09:52 | CT_ITS ---
INDICATION: hemoptysis, copd -- R/O lung cancer, nodule EXAMINATION: CT CHEST WITHOUT CONTRAST - CT Chest W/O Contrast Injection TECHNIQUE: Helically acquired images were obtained of the chest. The protocol utilizes one or more of the following dose reduction techniques: automated exposure control, adjustment of mA and/or kV according to patient size,and/or use of iterative reconstruction technique. IV Contrast dosage and agent: None. RADIATION DOSAGE (If Supplied By Facility): CTDIvol = ( 13.08 ) mGy, DLP = ( 493.41 ) mGycm COMPARISON: Prior study dated: 09/19/2023 FINDINGS: LUNGS, PLEURA AND LARGE AIRWAYS: Somewhat hyperinflated lungs. Well-defined heterogeneous opacity in the superior segment of the right lower lobe measuring about 3 cm new since previous exam. Previously noted similar right upper lobe density has cleared. Atelectatic changes in the lung bases. No pleural effusion or thickening. No pneumothorax. THYROID: No thyroid lesions. HEART AND PERICARDIUM: Mild cardiomegaly. No pericardial effusion. CORONARY ARTERIES: Coronary artery calcification is seen. VESSELS: Thoracic aorta is not dilated. MEDIASTINUM AND PAMELA: Few small mediastinal nodes. No evidence of hilar or mediastinal adenopathy. Esophagus is unremarkable. No hiatal hernia. UPPER ABDOMEN: Stable 1.9 cm right adrenal nodule could be due to adenoma. BONES: No suspicious lytic or blastic abnormality. CT/Chest without Contrast IMPRESSION: 1. Right lower lobe density/mass new since the previous exam could be due to focal pneumonia. Follow-up examination or correlation with PET scan is recommended to exclude malignancy. 2. COPD changes which is associated with increased incidence of cancer. 3. Stable right adrenal nodule unchanged the prior examinations. Electronically Signed: Cj Recinos MD at 10:33 EST ,
[2024-02-06] MEDS: Furosemide 20 MG/2 ML VIAL IV (12:05)
[2024-02-06] MEDS: MELATONIN 3 MG TABLET PO ×2 (22:41→22:58)
[2024-02-06] MEDS: Atorvastatin Calcium 20 MG Tablet PO (22:58)
[2024-02-07] VITALS (10 sets, daily range): BP systolic 112–146; BP diastolic 97–114; PULSE 58–112; RESP 14–24; TEMP 36.2–36.6; O2SAT 96–100
[2024-02-07] MEDS: Ampicillin/Sulbactam 3 GM in 0.9% Normal Saline (100mL MB+) 100 ML IV ×3 (06:16→21:43)
[2024-02-07] MEDS: 0.9% Saline Lock 10 ML Syringe IV ×2 (06:16→21:44)
[2024-02-07] MEDS: Ipratropium 0.5 MG/2.5 ML SOLUTION INHALATION ×3 (07:13→20:17)
[2024-02-07] MEDS: Ascorbic Acid 500 MG Tablet 1000 MG PO ×2 (07:50→16:36)
[2024-02-07] MEDS: Aspirin 81 MG TAB.CHEW PO (07:50)
[2024-02-07] MEDS: Furosemide 20 MG/2 ML VIAL IV (10:48)
[2024-02-07] MEDS: guaiFENesin 1,200 MG Tablet 1200 MG PO ×2 (10:49→21:42)
[2024-02-07] MEDS: Pantoprazole Sodium 40 MG Tablet PO (10:51)
[2024-02-07] MEDS: Cholecalciferol (Vit D3) 125 MCG CAPSULE (5,000 UNITS) PO (10:52)
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
[2024-02-07] MEDS: Carvedilol 3.125 MG TABLET PO (16:36)
[2024-02-07] MEDS: Atorvastatin Calcium 20 MG Tablet PO (21:42)
[2024-02-07] MEDS: Carvedilol 6.25 MG Tablet PO (21:42)
[2024-02-08] VITALS (8 sets, daily range): BP systolic 123–141; BP diastolic 100–108; PULSE 80–98; RESP 14–19; TEMP 36.4–36.6; O2SAT 91–100; BMI 29.7
[2024-02-08] MEDS: Ampicillin/Sulbactam 3 GM in 0.9% Normal Saline (100mL MB+) 100 ML IV ×2 (05:02→13:56)
[2024-02-08] MEDS: 0.9% Saline Lock 10 ML Syringe IV ×3 (05:02→13:55)
[2024-02-08 07:09] LABS: Anion Gap 5 (5-15); BUN 38 mg/dL (7-18); BUN/Creat Ratio 31.7 RATIO (10-20); Calcium,Total 8.8 mg/dL (8.5-10.1); Chloride 107 mmol/L (98-107); EST Glomerular Filtration Rate 65 mL/min (>60); Est Glom Filt Rate - Afr Amer 78 mL/min (>60); Estimated Creatinine Clearance 63.02 ml/min; Glucose 147 mg/dL (74-106); Magnesium 2.1 mg/dL (1.6-2.6); Potassium 3.6 mmol/L (3.5-5.1); Sodium Level 137 mmol/L (136-145)
[2024-02-08] MEDS: Ipratropium 0.5 MG/2.5 ML SOLUTION INHALATION ×3 (08:04→14:17)
[2024-02-08] MEDS: Aspirin 81 MG TAB.CHEW PO (08:46)
[2024-02-08] MEDS: predniSONE 20 MG Tablet 40 MG PO (08:46)
[2024-02-08] MEDS: Ascorbic Acid 500 MG Tablet 1000 MG PO ×2 (08:46→16:17)
[2024-02-08] MEDS: Cholecalciferol (Vit D3) 125 MCG CAPSULE (5,000 UNITS) PO (08:52)
[2024-02-08] MEDS: guaiFENesin 1,200 MG Tablet 1200 MG PO (08:52)
[2024-02-08] MEDS: Pantoprazole Sodium 40 MG Tablet PO (08:52)
[2024-02-08] MEDS: Isosorbide Mononitrate 30 MG Tablet PO (08:52)
[2024-02-08] MEDS: Carvedilol 6.25 MG Tablet PO (08:53)
[2024-02-08] MEDS: Furosemide 20 MG/2 ML VIAL IV (08:53)
[2024-02-08] MEDS: Enoxaparin 40 MG/0.4 ML Syringe SC (08:53)
--- NOTE | 2024-02-08 10:05 | DCINST_ITS ---
Discharge Instructions DC O2, CPAP, BIPAP needs PSN CPAP & BiPAP: BiPAP & CPAP Settings per PSN Mode BiPAP 02/08/24 12:12 Bipap Delivery Device Face Mask 02/08/24 03:00 BiPAP Expiratory Pressure 8 02/08/24 03:00 BiPAP Rate 14 02/08/24 03:00 Fraction of Inspired Oxygen ( 30 02/08/24 03:00 FIO2) Home O2 Discharge instructions: No Follow Up Care Test Results: Test results from this visit will be discussed in further detail at your follow- up appointment, if applicable. Discharge Plan Admission Admit Date/Time: 02/04/24 02:04 Primary Reason for Your Visit: COPD exacerbation Attending Provider: Gustavo Wilcox Primary Care Provider: Kojo Rondon Consulting Providers: Alcides Mann Discharge Orders/Prescriptions Prescriptions: New nicotine 14 mg/24 hr Patch 24 Hour 14 mg transdermal DAILY 28 Days Qty: 28 0RF pantoprazole 40 mg Tablet,Delayed Release (Dr/Ec) 40 mg PO DAILY 30 Days Qty: 30 0RF dextromethorphan-guaifenesin [Mucus DM Max ER] 60-1,200 mg tablet extended release 12 hr 1 tab PO Q12H 7 Days Qty: 14 0RF prednisone 10 mg tablet 10 mg PO DAILY Qty: 30 0RF Rx Instructions: 40 mg for 3 days 30 mg for 3 days, 20 mg for 3 days,and 10 mg for 3 days furosemide [Lasix] 20 mg tablet 20 mg PO DAILY PRN (Reason: weight gain) 30 Days Qty: 30 0RF Rx Instructions: leg swelling Continued albuterol sulfate 90 mcg/actuation HFA aerosol inhaler 2 puff inhalation Q4H PRN (Reason: sob) aspirin 81 mg tablet,chewable 81 mg PO DAILY budesonide-formoterol 160-4.5 mcg/actuation HFA aerosol inhaler 2 puff inhalation BID carvedilol 6.25 mg tablet 6.25 mg PO BID Rx Instructions: must administer with a meal/food rosuvastatin 10 mg tablet 10 mg PO DAILY ipratropium bromide 0.02 % solution 2.5 ml inhalation Q6H PRN PRN (Reason: wheezing) isosorbide mononitrate 30 mg tablet extended release 24 hr 30 mg PO DAILY 30 Days Qty: 30 0RF Rx Instructions: Hold for SBP less than 130 mmHg Discontinued naproxen [Naprosyn] 500 mg tablet 500 mg PO BID PRN (Reason: pain) Qty: 20 0RF Referrals / Follow Up: Reginald Jiang DO [Med Staff - Active Staff] - Within 2 Weeks (Advanced COPD.) Kojo Rondon MD [Primary Care Provider] - Alex Rosenbaum MD [Med Staff - Active Staff] - Within 2 Weeks Disposition Disposition (needs filled in before D/C Order can be placed): Home, Self Care
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
[2024-02-08] MEDS: Potassium Chloride Oral Tablet 20 MEQ 40 MEQ PO (13:54)
== END 2024-02-08 16:32 | disposition home or self-care (01) | DRG 720 ==
LOC: ED 02-04 02:08 → ICU 02-04 08:32 → PCU 02-04 17:41
PROVIDERS: Admitting Provider Internal Medicine; Emergency Provider Emergency Medicine; PCP Family Medicine; Visit Provider Internal Medicine
DX: A41.9 Sepsis, unspecified organism (principal); J96.02 Acute respiratory failure with hypercapnia; J96.01 Acute respiratory failure with hypoxia; I50.33 Acute on chronic diastolic (congestive) heart failure; J44.0 Chronic obstructive pulmonary disease with (acute) lower respiratory infection; I11.0 Hypertensive heart disease with heart failure; F17.210 Nicotine dependence, cigarettes, uncomplicated; I25.5 Ischemic cardiomyopathy; I25.10 Atherosclerotic heart disease of native coronary artery without angina pectoris; E78.2 Mixed hyperlipidemia; J44.1 Chronic obstructive pulmonary disease with (acute) exacerbation; J18.9 Pneumonia, unspecified organism; N17.9 Acute kidney failure, unspecified; R65.20 Severe sepsis without septic shock; I25.2 Old myocardial infarction; J45.901 Unspecified asthma with (acute) exacerbation; E66.3 Overweight; R04.2 Hemoptysis; Z68.27 Body mass index [BMI] 27.0-27.9, adult; Z95.5 Presence of coronary angioplasty implant and graft; Z79.51 Long term (current) use of inhaled steroids; Z79.82 Long term (current) use of aspirin; Z79.899 Other long term (current) drug therapy; Z87.898 Personal history of other specified conditions
CPT/HCPCS: 36415; 36600; 71045; 71250; 80048; 80061; 80307; 82077; 82607; 82746; 82803; 83605; 83735; 83880; 85025; 87040; 87070; 87205; 87449; 87631; 93306; 94002; 94003; 94640; 94667; 94668; 94762; 97110; 97116; 97162; 97166; 97530; 97535; 99285; 99406; Q9957; A4216; C8929; J0295; J1940; J2405

== ENCOUNTER 2024-03-23 06:04 | Inpatient (IN) | payer MEDICAID, SELFPAY ==
[2024-03-23] VITALS (26 sets, daily range): BP systolic 82–137; BP diastolic 65–104; PULSE 93–153; RESP 14–25; TEMP 36.3–36.8; O2SAT 95–100; BMI 28.8; BMI 28.6
--- NOTE | 2024-03-23 06:20 | EKG12_ITS ---
Test Reason : Blood Pressure : */* mmHG Vent. Rate : 156 BPM Atrial Rate : * BPM P-R Int : * ms QRS Dur : 148 ms QT Int : 342 ms P-R-T Axes : * -69 102 degrees QTcB Int : 551 ms Critical Test Result: High HR Atrial fibrillation with rapid ventricular response Left axis deviation Right bundle branch block st and T wave abnormality, consider lateral ischemia Abnormal ECG Confirmed by Alex Rosenbaum ([id number]), news videotape editor DEREK MAZARIEGOS ([id number]) on 03/24/2024 11:19:18 AM Referred By: Confirmed By: Alex Rosenbaum
--- NOTE | 2024-03-23 06:20 | RAD_ITS ---
PROCEDURE: CHEST PA AND LATERAL REASON FOR EXAM: Weakness. TECHNIQUE: Frontal and lateral views of the chest. COMPARISON: AP chest date 02/04/2020. RAD/Chest PA and Lateral IMPRESSION: No evidence pulmonary edema. Lungs appear clear of acute disease. No pleural effusion or pneumothorax is evident. The cardiomediastinal silhouette is stable, without evidence significant cardio megaly. Prior right mid clavicular fracture with stable alignment noted. No evidence o f osseous uterine, at this point. Reading Location: [id number]
--- NOTE | 2024-03-23 06:31 | EX.ED.DYSGE1 ---
HPI History of Present Illness Chief Complaint: Weakness Narrative Narrative: Patient is a 64-year-old male past medical history of hypertension, CHF with an EF of 10% in 2023 per the records, CAD with stent, hypertension, hyperlipidemia who presents to the emergency department the chief complaint of generalized weakness and shortness of breath. Patient states that he cannot walk very far without becoming acutely short of breath he states that he is not on oxygen normally. Patient denies any recent sick contacts. He states that he can barely care for himself and his dog at this point time therefore he called EMS to have him brought here for further evaluation management. [facility] Medical History Mixed hyperlipidemia Tobacco abuse Essential hypertension Asthma-COPD overlap syndrome Desire for detoxification Ischemic cardiomyopathy Non-ST elevated myocardial infarction (non-STEMI) Atherosclerosis of [place] coronary artery of [place] heart without angina pectoris Congestive heart failure with LV diastolic dysfunction, NYHA class 3 Bilateral lower extremity edema Lower extremity edema Shortness of breath Home Medications ?Medication ?Instructions ?Recorded ?Last Taken ?Type albuterol sulfate 90 mcg/actuation 2 puff inhalation Q4H PRN sob 11/13/22 02/03/24 History aerosol inhaler aspirin 81 mg chewable tablet 81 mg PO DAILY heart health 11/13/22 Unknown History budesonide-formoterol HFA 160 2 puff inhalation BID sob 11/13/22 02/03/24 History mcg-4.5 mcg/actuation aerosol inhaler carvedilol 6.25 mg tablet 6.25 mg PO BID 11/13/22 Unknown History rosuvastatin 10 mg tablet 10 mg PO DAILY cholesterol 11/13/22 Unknown History ipratropium bromide 0.02 % 2.5 ml inhalation Q6H PRN PRN 02/04/24 Unknown History solution for inhalation wheezing amoxicillin 875 mg-potassium 1 tab PO BID 2 days #4 tabs 02/08/24 Unknown Rx clavulanate 125 mg tablet dextromethorphan-guaifenesin ER 60 1 tab PO Q12H 1 week #14 tabs 02/08/24 Unknown Rx mg-1,200 mg tab,extend release,12hr (Mucus DM Max ER) furosemide 20 mg tablet (Lasix) 20 mg PO DAILY PRN weight gain 1 02/08/24 Unknown Rx month #30 tabs isosorbide mononitrate 30 mg 30 mg PO DAILY 30 days #30 tabs 02/08/24 Unknown Rx tablet,extended release 24 hr nicotine 14 mg/24 hr daily 14 mg transdermal DAILY 28 days 02/08/24 Unknown Rx transdermal patch #28 ea pantoprazole 40 mg tablet,delayed 40 mg PO DAILY 30 days #30 tabs 02/08/24 Unknown Rx release prednisone 10 mg tablet 10 mg PO DAILY #30 tabs 02/08/24 Unknown Rx Allergy/AdvReac Type Severity Reaction Status Date / Time No Known Allergies Allergy Verified 03/23/24 06:12 Family History Mother CAD (coronary artery disease) Cancer Diabetes Father Cancer Surgical History History of dental surgery H/O hand surgery H/O left knee surgery Stented coronary artery (11/21/17) Social History (Updated 03/23/24 @ 07:[address] Alex Rosenbaum MD) Smoking Status: Current every day smoker tobacco type: cigarettes alcohol intake: current details: in treatment substance use type: former substance user and heroin ROS ROS ED ROS Narrative Constitutional: Denies headache, fevers, chills, lightness, dizziness Eyes: Denies change in vision Cardiovascular: Denies chest pain or palpitations Respiratory: Complains of shortness of breath denies coughing or wheezing Abdomen: Denies abdominal pain nausea vomit diarrhea : Denies any urinary symptoms Neurological: Denies numbness, weakness, tingling Musculoskeletal: Denies back pain Skin: Denies any rashes or lesions EXAM Physical Exam Narrative Exam Narrative: General: Patient was lying in bed did appear to be short of breath and not feeling well overall Head: Atraumatic, normocephalic Eyes: PERRL bilaterally, EOMI bilateral, no conjunctival injection noted Neck: Soft, supple, trachea midline Cardiovascular: Patient had a irregular irregular rhythm and tachycardia noted Respiratory: Diminished breath sounds bilaterally no wheezing noted Abdomen: No other negative tenderness palpation, soft, nondistended Extremities: +4/5 strength noted in the bilateral upper and lower extremities, 1+ pitting edema in the bilateral lower extremities Neurological: Patient follow commands knew that he was at [facility] year is 2024 Skin: Warm, dry, intact no rashes or lesions noted Const Vital Signs: 03/23/24 06:08 03/23/24 06:11 03/23/24 06:20 Temperature 97.6 F L Temperature Source Oral Pulse Rate 153 H Respiratory Rate 25 H Respiratory Effort Short of Breath Respiratory Pattern Normal Blood Pressure 113/96 H Blood Pressure Mean 101 Pulse Ox 98 99 Oxygen Delivery Method Room Air Room Air MDM MDM MDM Narrative Medical decision making narrative: Patient is a 64-year-old male who presented to the emergency department with chief complaint of dyspnea on exertion. Per EMS he was in A-fib RVR. On the differential diagnose includes but not limited to CHF exacerbation, pneumonia, pneumothorax, ACS. Once workup is obtained and reviewed he will be reevaluated. Patient will only be given a liter bolus of IV fluid secondary to concern for CHF exacerbation therefore a 30 cc/kg bolus will not be given. Patient is CBC was reviewed showed no evidence of leukocytosis white blood count normal at 10.8, hemoglobin is 14.4, plate count was noted be 379. Patient INR normal at 1.1, PT of 14.3. Patient sodium was 130, potassium normal 3.6, creatinine was elevated 1.61 indicating acute kidney injury baseline was around 1.20. Patient does have lactic acidosis of 2.8, AST and ALT were 150 and 128 respectively. Patient's troponin was elevated 343 patient's EKG was reviewed and showed atrial fibrillation with rapid ventricular spots with evidence of right bundle branch block. Did call and discussed case with on-call test examiner Dr. Rosenbaum who came down evaluated the patient at bedside. We will give another dose of Lopressor 5 mg as well as 40 mg IV Lasix I will give 3 DuoNebs as well. Patient's proBNP pending. Patient chest x-ray reviewed by myself by radiology read pending however no acute cardiopulmonary processes identified no costophrenic angle blunting noted. Will place the patient on cardiac heparin after discussion with cardiology. At this point time patient will require admission to the hospital will discuss case with hospitalist for admission for A-fib RVR, CHF exacerbation Discussed case with hospitalist Dr. Lawton who accept patient for admission. Patient was notified is agreeable this plan all question concerns answered bedside. Lab Data Labs: Laboratory Results - last 24 hr 03/23/24 03/23/24 06:21 06:38 WBC 10.8 RBC 5.38 Hgb 14.4 Hct 44.4 MCV 82.5 MCH 26.8 L MCHC 32.4 RDW Std Deviation 53.0 H RDW Coeff of Loco 18.5 H Plt Count 379 MPV 10.0 Immature Gran % (Auto) 1.800 H Neut % (Auto) 67.4 Lymph % (Auto) 16.8 L [place] % (Auto) 12.9 H Eos % (Auto) 0.5 Baso % (Auto) 0.6 Absolute Neuts (auto) 7.3 Absolute Lymphs (auto) 1.81 Nucleated RBC % 0 PT 14.3 INR 1.1 APTT 27.8 Sodium 130 L Potassium 3.6 Chloride 97 L Carbon Dioxide 19.0 L Anion Gap 13 BUN 45 H Creatinine 1.61 H Estim Creat Clear Calc 46.31 Est GFR (MDRD) Af Amer 56 L Est GFR (MDRD) Non-Af 46 L BUN/Creatinine Ratio 28.0 H Glucose 151 H Lactic Acid 2.8 H* Calcium 8.8 Total Bilirubin 1.50 H AST 150 H ALT 128 H Alkaline Phosphatase 276 H Troponin I High Sens 343 H* Total Protein 6.9 Albumin 3.7 Globulin 3.2 Albumin/Globulin Ratio 1.2 Discharge Plan Triage Chief Complaint: Weakness ED Provider: Bryan Montoya Dx/Rx/DC Orders Clinical Impression: Dyspnea on exertion, Atrial fibrillation with RVR, Myocardial infarction type 2, Acidosis, lactic, Transaminitis, CHF (congestive heart failure), Acute kidney injury Prescriptions: No Action albuterol sulfate 90 mcg/actuation HFA aerosol inhaler 2 puff inhalation Q4H PRN (Reason: sob) aspirin 81 mg tablet,chewable 81 mg PO DAILY budesonide-formoterol 160-4.5 mcg/actuation HFA aerosol inhaler 2 puff inhalation BID carvedilol 6.25 mg tablet 6.25 mg PO BID Rx Instructions: must administer with a meal/food rosuvastatin 10 mg tablet 10 mg PO DAILY ipratropium bromide 0.02 % solution 2.5 ml inhalation Q6H PRN PRN (Reason: wheezing) nicotine 14 mg/24 hr Patch 24 Hour 14 mg transdermal DAILY 28 Days Qty: 28 0RF pantoprazole 40 mg Tablet,Delayed Release (Dr/Ec) 40 mg PO DAILY 30 Days Qty: 30 0RF dextromethorphan-guaifenesin [Mucus DM Max ER] 60-1,200 mg tablet extended release 12 hr 1 tab PO Q12H 7 Days Qty: 14 0RF prednisone 10 mg tablet 10 mg PO DAILY Qty: 30 0RF Rx Instructions: 40 mg for 3 days 30 mg for 3 days, 20 mg for 3 days,and 10 mg for 3 days furosemide [Lasix] 20 mg tablet 20 mg PO DAILY PRN (Reason: weight gain) 30 Days Qty: 30 0RF Rx Instructions: leg swelling isosorbide mononitrate 30 mg tablet extended release 24 hr 30 mg PO DAILY 30 Days Qty: 30 0RF Rx Instructions: Hold for SBP less than 130 mmHg amoxicillin-pot clavulanate 875-125 mg tablet 1 tab PO BID 2 Days Qty: 4 0RF Primary Care Provider: Kojo Rondon Referrals: Kojo Rondon MD [Primary Care Provider] - Print Language: Beninese Disposition Disposition: Acute Care Hospital [facility]
[2024-03-23 06:37] LABS: Absolute Lymphocyte Count 1.81 X10^3/uL (0.83-4.51); Absolute Neutrophil Count 7.3 X10^3/uL (2.0-7.7); Basophil# 0.07 X10^3/uL; Basophil% 0.6 % (0-1); Eosinophil# 0.05 X10^3/uL; Eosinophils% 0.5 % (0-5); Hematocrit 44.4 % (40-54); Hemoglobin 14.4 g/dL (13.0-16.5); Lymphocyte # 1.81 X10^3/ul (0.83-4.51); Lymphocyte % 16.8 % (19-41); Mean Corp Hgb Conc 32.4 g/dL (32-36); Mean Corpuscular Hgb 26.8 pg (27.0-32.0); Mean Corpuscular Volume 82.5 fL (80-94); Monocyte# 1.39 X10^3/uL; Monocyte% 12.9 % (0-10); NRBC Flagged by Analyzer 0 % (0-5); Neutrophil # 7.26 X10^3/uL (2.7-7.7); Neutrophil % 67.4 % (47-70); Platelet Count 379 K/mm3 (150-450); RBC Distribution Width CV 18.5 % (11.6-14.6); Red Blood Count 5.38 M/mm3 (4.6-6.2); White Blood Count 10.8 K/mm3 (4.4-11.0)
[2024-03-23] MEDS: Metoprolol Tartrate 5 MG/5 ML Vial IV ×2 (06:54→08:00)
[2024-03-23] MEDS: 0.9% Normal Saline (1000mL) 1,000 ML 999 ML IV (06:54)
[2024-03-23 06:56] LABS: ALB/GLOB Ratio 1.2 RATIO (0.9-2.4); AST(SGOT) 150 U/L (15-37); Alanine Aminotransfer ALT/SGPT 128 U/L (16-61); Albumin, Serum 3.7 g/dL (3.2-5.0); Alkaline Phosphatase 276 U/L (45-117); Anion Gap 13 (5-15); BUN 45 mg/dL (7-18); Calcium,Total 8.8 mg/dL (8.5-10.1); Chloride 97 mmol/L (98-107); Creatinine, Serum 1.61 mg/dL (0.70-1.30); EST Glomerular Filtration Rate 46 mL/min (>60); Est Glom Filt Rate - Afr Amer 56 mL/min (>60); Estimated Creatinine Clearance 46.31 ml/min; Globulin 3.2 g/dL (2.2-4.2); Glucose 151 mg/dL (74-106); Potassium 3.6 mmol/L (3.5-5.1); Protein, Total 6.9 g/dL (6.4-8.2); Sodium Level 130 mmol/L (136-145); Troponin-I HS 343 pg/mL (3.0-78.0)
[2024-03-23 07:03] LABS: International Normalized Ratio 1.1; Prothrombin Time (Protime)PT. 14.3 SECONDS (11.7-14.9)
[2024-03-23 07:04] LABS: Partial Thromboplast Time 27.8 Seconds (24.1-36.2)
[2024-03-23 07:23] LABS: Lactic Acid 2.8 mmol/L (0.4-1.9)
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
[2024-03-23] MEDS: Furosemide 40 MG/4 ML Vial IV ×2 (07:47→19:39)
[2024-03-23] MEDS: LORazepam 2 MG/ML Syringe 0.5 MG IV ×2 (07:59→23:38)
--- NOTE | 2024-03-23 08:17 | HP.PCM.HOS_ITS ---
[facility] - General General Date of Service: 03/23/24 Chief Complaint: shortness of breath. HPI Narrative KYLE MANN, is a 64 M who presents with shortness of breath that began yesterday. Also feels palpitations. Presented here and was found to be in atrial fibrillation with RVR. ED physician spoke with Dr. Rosenbaum, cardiology. Patient was ordered 2 doses of IV metoprolol and as well as IV furosemide. Initially, patient received bronchodilators and lorazepam. [facility] Medical History Mixed hyperlipidemia Tobacco abuse Essential hypertension Asthma-COPD overlap syndrome Desire for detoxification Ischemic cardiomyopathy Non-ST elevated myocardial infarction (non-STEMI) Atherosclerosis of [place] coronary artery of [place] heart without angina pectoris Congestive heart failure with LV diastolic dysfunction, NYHA class 3 Bilateral lower extremity edema Lower extremity edema Shortness of breath Home Medications ?Medication ?Instructions ?Recorded ?Last Taken ?Type albuterol sulfate 90 mcg/actuation 2 puff inhalation Q 4H PRN sob 11/13/22 02/03/24 History aerosol inhaler aspirin 81 mg chewable tablet 81 mg PO DAILY heart hea lth 11/13/22 Unknown History budesonide-formoterol HFA 160 2 puff inhalation BID so b 11/13/22 02/03/24 History mcg-4.5 mcg/actuation aerosol inhaler carvedilol 6.25 mg tablet 6.25 mg PO BID 11/13/22 Unkn own History rosuvastatin 10 mg tablet 10 mg PO DAILY cholesterol 1 Unknown History ipratropium bromide 0.02 % 2.5 ml inhalation Q6H PRN P RN 02/04/24 Unknown History solution for inhalation wheezing amoxicillin 875 mg-potassium 1 tab PO BID 2 days #4 ta bs 02/08/24 Unknown Rx clavulanate 125 mg tablet dextromethorphan-guaifenesin ER 60 1 tab PO Q12H 1 wee k #14 tabs 02/08/24 Unknown Rx mg-1,200 mg tab,extend release,12hr (Mucus DM Max ER) furosemide 20 mg tablet (Lasix) 20 mg PO DAILY PRN stacey ght gain 1 02/08/24 Unknown Rx month #30 tabs isosorbide mononitrate 30 mg 30 mg PO DAILY 30 days #3 0 tabs 02/08/24 Unknown Rx tablet,extended release 24 hr nicotine 14 mg/24 hr daily 14 mg transdermal DAILY 28 days 02/08/24 Unknown Rx transdermal patch #28 ea pantoprazole 40 mg tablet,delayed 40 mg PO DAILY 30 da ys #30 tabs 02/08/24 Unknown Rx release prednisone 10 mg tablet 10 mg PO DAILY #30 tabs 01/11 11/03 Unknown Rx Allergy/AdvReac Type Severity Reaction Status Date / Time No Known Allergies Allergy Verified 03/23/24 06:12 Family History Mother CAD (coronary artery disease) Cancer Diabetes Father Cancer Surgical History History of dental surgery H/O hand surgery H/O left knee surgery Stented coronary artery (11/21/17) Social History Smoking Status: Current every day smoker tobacco type: cigarettes alcohol intake: current details: in treatment substance use type: former substance user and heroin ROS ROS Narrative No fever or chills. No chest pain. Does have some trace lower extremity edema but no acute changes. All review of systems were negative except as mentioned above in the history of present illness and the other review of systems. Vital Signs Vital Signs Vital Signs: 03/23/24 06:08 03/23/24 06:11 03/23/24 06:20 Temperature 36.4 C L Temperature Source Oral Pulse Rate 153 H Respiratory Rate 25 H Respiratory Effort Short of Breath Respiratory Pattern Normal Blood Pressure 113/96 H Blood Pressure Mean 101 Pulse Ox 98 99 Oxygen Delivery Method Room Air Room Air 03/23/24 08:04 Temperature Temperature Source Pulse Rate 152 H Respiratory Rate 24 H Respiratory Effort Respiratory Pattern Blood Pressure 120/84 H Blood Pressure Mean 96 Pulse Ox 96 Oxygen Delivery Method Room Air Weight Weight: 80.9 kg Body Mass Index (BMI) 28.8 Physical Exam Const alert and no apparent distress Constitutional Narrative: No respiratory distress. No conversational dyspnea. HEENT normocephalic, head/scalp atraumatic, hearing grossly normal bilaterally and moist oral mucous membranes Resp normal respiratory effort and no retractions Resp Narrative: Diminished bilaterally Cardio Cardio Narrative: Irregularly irregular GI normal to inspection, nondistended, normoactive bowel sounds, soft to palpation, non-tender and non-distended Extremity Extremity Narrative: Bilateral mild ankle edema. Neuro moves all extremities Sensorium / Orientation: awake and alert Speech: speech normal Psych affect normal Results Lab / Micro Data Attestation: I reviewed the patient's lab results. Lab results narrative: Chest x-ray personally reviewed and showed no acute infiltrate nor pulmonary vascular congestion. 03/23/24 06:21 03/23/24 06:21 Labs: Laboratory Results - last 24 hr 03/23/24 06:21: WBC 10.8, RBC 5.38, Hgb 14.4, Hct 44.4, MCV 82.5, MCH 26.8 L, MCHC 32.4, RDW Std Deviation 53.0 H, RDW Coeff of [place] 18.5 H, Plt Count 379, MPV 10.0, Immature Gran % (Auto) 1.800 H, Neut % (Auto) 67.4, Lymph % (Auto) 16.8 L, [place] % (Auto) 12.9 H, Eos % (Auto) 0.5, Baso % (Auto) 0.6, Absolute Neuts (auto) 7.3, Absolute Lymphs (auto) 1.81, Nucleated RBC % 0, PT 14.3, INR 1.1, APTT 27.8, Sodium 130 L, Potassium 3.6, Chloride 97 L, Carbon Dioxide 19.0 L, Anion Gap 13, BUN 45 H, Creatinine 1.61 H, Estim Creat Clear Calc 46.31, Est GFR (MDRD) Af Amer 56 L, Est GFR (MDRD) Non-Af 46 L, BUN/Creatinine Ratio 28.0 H, G lucose 151 H, Calcium 8.8, Total Bilirubin 1.50 H, AST 150 H, ALT 128 H, A lkaline Phosphatase 276 H, Troponin I High Sens 343 H*, Total Protein 6.9, Albumin 3.7, Globulin 3.2, Albumin/Globulin Ratio 1.2 03/23/24 06:38: Lactic Acid 2.8 H* Rhythm Strip Rhythm Strip: A-fib Rate: 156 EKG Initial EKG: Attestation: I personally reviewed and interpreted this EKG as follows: Prior EKG tracings: available for review EKG Rhythm Intrepretation: Atrial Fibrillation (RVR) Imaging Radiology Impression Chest X-Ray 03/23/24 06:20 IMPRESSION: No evidence pulmonary edema. Lungs appear clear of acute disease. No pleural effusion or pneumothorax is evident. The cardiomediastinal silhouette is stable, without evidence significant cardiomegaly. Prior right mid clavicular fracture with stable alignment noted. No evidence of osseous uterine, at this point. Reading Location: [address] Assessment & Plan Assessment/Plan (1) Paroxysmal atrial fibrillation: PLAN: A-fib with RVR Patient received 2 doses of IV metoprolol in the emergency room and did not have a significant improvement of his heart rate. Further management per cardiology. Cardiology recommending heparin drip which has been initiated. (2) COPD exacerbation: PLAN: No pulmonary vascular congestion but cardiology recommend continue with diuresis which we will continue with furosemide. Patient does have some mild ankle edema. Unclear if this will contribute much regards to his shortness of breath. Unclear if also of his shortness of breath is least partially attributable to his A-fib with RVR. Will continue with bronchodilators. Add methylprednisolone. Viral studies ordered in the emergency room and are currently pending. (3) NSTEMI, initial episode of care: PLAN: Most likely type II, demand ischemia, given the atrial fibrillation with RVR. Troponin initially 343. Will monitor for now. Patient anticoagulate with heparin drip. (4) Transaminitis: PLAN: May be due to passive congestion. Will monitor for now. PLAN: Plan Chronic kidney disease stage III: I disagree with cardiology and I do not feel the patient has SAGAR. Will monitor that with the patient being on diuretics. VTE prophylaxis: Not indicated as patient is anticoagulated. CODE STATUS: Without me even prompting, patient states that he wants to be comfy. Clarified with the patient that he wishes to be DNR Comfort Care arrest no intubation. Charges/Coding Visit Charges Inpatient E&M: 61523 Init Hosp L3
[2024-03-23 08:50] LABS: Bacteria 0 SEEN /hpf (None Seen); Mucous, Urine 0 SEEN /hpf (<or=2+)
[2024-03-23 08:58] LABS: Color, Urine Yellow (Yellow); Glucose, Dipstick Normal (Normal); Ketone-Dipstick Negative (Negative); Leukocyte Esterase-Dipstick Negative /ul (Negative); Nitrite-Dipstick Negative (Negative); Occult Blood-Urine Negative /ul (Negative); Protein-Dipstick 100 mg/dl (Negative); Urine Bilirubin Dipstick 1 mg/dL (Negative); Urine Clarity Sl. Cloudy (Clear); Urine Urobilinogen 1 mg/dl (Normal)
[2024-03-23 09:03] LABS: Red Blood Cells-Urine 0 SEEN /hpf (0-5); Squamous Epithelial Cells - UA 0-5 SEEN /hpf (0-5); White Blood Cells 0-5 SEEN /hpf (0-5)
[2024-03-23] MEDS: Ipratropium/Albuterol Sulfate 3 ML AMPUL.NEB INHALATION ×3 (09:03)
[2024-03-23 09:12] LABS: BNP,B-Type NATRIURETIC PEPTIDE 1407.3 pg/mL (0-100)
[2024-03-23] MEDS: Heparin Injection (Vial) 5,000 UNIT/ML VIAL 4000 UNIT IV (09:16)
[2024-03-23] MEDS: HEPARIN/D5w 25,000 UNITS 25,000 UNITS/250 ML IV.SOLN. 10 UNITS CONT INF (09:20)
[2024-03-23 09:42] LABS: Troponin-I HS 294 pg/mL (3.0-78.0)
[2024-03-23 09:46] LABS: Partial Thromboplast Time 26.9 Seconds (24.1-36.2)
[2024-03-23 10:03] LABS: International Normalized Ratio 1.2; Prothrombin Time (Protime)PT. 15.2 SECONDS (11.7-14.9)
[2024-03-23] MEDS: Digoxin 250 MCG/ML Ampul 500 MCG IV (10:12)
--- NOTE | 2024-03-23 10:13 | ECHOD_ITS ---
Reason For Study Reason For Study: Afib Procedure This was a 2D Doppler, Color Flow transthoracic echocardiogram. Exam performed portable in ED. Left Ventricle Moderately dilated left ventricle. The estimated ejection fraction is 10 %. There is evidence of diastolic dysfunction. There is severe global hypokinesis of the left ventricle. Right Ventricle Normal RV size. Normal systolic function. Atria There is moderate biatrial dilatation. No doppler evidence for ASD. Mitral Valve There is moderate mitral annular calcification. There is no mitral valve stenosis. Moderate (2+) mitral valve insufficiency. Tricuspid Valve There is no tricuspid stenosis. Mild (1+) tricuspid valve insufficiency. Pulmonary artery systolic pressure is 40-45 mmHg. Aortic Valve Trisinus/trileaflet aortic valve. There is no aortic stenosis. No aortic valve insufficiency. Pulmonic Valve There is no pulmonic valvular stenosis. No pulmonic valve insufficiency. Great Vessels Normal aortic root. Pericardium/Pleural No pericardial effusion. MMode/2D Measurements & Calculations LVIDd: 7.2 cm IVSd: 0.98 cm Ao root diam: 3.6 cm LVIDs: 6.8 cm LVPWd: 0.90 cm RVDd: 4.2 cm FS: 5.3 % LAV(MOD-bp): 126.0 ml LA A4 area: 34.7 cm2 LA dimension(2D): 5.4 cm LAV(MOD-bp) Indexed: 66.2 ml/m2 LAV(MOD-sp2): 102.0 ml LAV(MOD-sp4): 127.2 ml TAPSE: 1.4 cm RA A4 area: 26.9 cm2 Doppler Measurements & Calculations MV E max maribell: 114.3 cm/sec MV V2 max: 125.3 cm/sec LV V1 max: 49.8 cm/sec MV max P.3 mmHg LV V1 max P.0 mmHg MV V2 mean: 67.7 cm/sec MV mean P.3 mmHg MV V2 VTI: 14.7 cm MR max maribell: 418.8 cm/sec TR max maribell: 275.4 cm/sec MR max P.1 mmHg TR max P.3 mmHg MR mean maribell: 295.0 cm/sec MR mean P.8 mmHg MR VTI: 92.2 cm ECHO/Echo Complete Interpretation Summary The estimated ejection fraction is 10 %. There is evidence of diastolic dysfunction. There is severe global hypokinesis of the left ventricle. There is moderate biatrial dilatation. Moderate (2+) mitral valve insufficiency. Moderately dilated left ventricle. Ordering Physician: Angel Lawton Referring Physician: Kojo Rondon Performed By: Rno Chatterjee RCS
[2024-03-23 10:47] LABS: Reflex Lactate? Y
[2024-03-23] MEDS: Isosorbide Mononitrate 30 MG Tablet PO (11:50)
[2024-03-23] MEDS: Pantoprazole Sodium 40 MG Tablet PO (11:50)
[2024-03-23] MEDS: Metoprolol Tartrate 25 MG Tablet PO ×2 (11:51→19:39)
--- NOTE | 2024-03-23 12:22 | NURSING ---
patient states he has not had smoked in 2 weeks and does not want the patch on. Doctor updated.
[2024-03-23 12:59] LABS: Lactic Acid 2.9 mmol/L (0.4-1.9)
--- NOTE | 2024-03-23 13:07 | CPS ---
hold atrovent treatments if patient's hr is over 100, per dr. awan.
[2024-03-23] MEDS: Amiodarone 150 MG in Dextrose 5%-Water (100mL Bag) 100 ML 600 MG IV BOLUS (13:37)
[2024-03-23] MEDS: Amiodarone 360 MG in Dextrose 5% Viaflo Bag 192.8 ML 33.3 MG CONT INF (13:49)
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
[2024-03-23 15:15] LABS: Partial Thromboplast Time 63.3 Seconds (24.1-36.2)
[2024-03-23 17:18] LABS: Troponin-I HS 244 pg/mL (3.0-78.0)
--- NOTE | 2024-03-23 18:20 | NURSING ---
This RN taking over care of pt at this time.
[2024-03-23] MEDS: Carvedilol 6.25 MG Tablet PO (19:02)
[2024-03-23] MEDS: 0.9% Saline Lock 10 ML Syringe IV ×3 (19:39→23:38)
[2024-03-23] MEDS: Amiodarone 360 MG in Dextrose 5% Viaflo Bag 192.8 ML 16.7 MG CONT INF (20:16)
[2024-03-23] MEDS: guaiFENesin/D-Methorphan TAB.SR.12H 1 TABLET PO (21:12)
[2024-03-23 21:24] LABS: Partial Thromboplast Time 62.1 Seconds (24.1-36.2)
[2024-03-23] MEDS: MELATONIN 3 MG TABLET PO (21:58)
[2024-03-23] MEDS: Acetaminophen 325 MG Tablet 650 MG PO (22:02)
[2024-03-24] VITALS (32 sets, daily range): BP systolic 74–150; BP diastolic 47–116; PULSE 76–110; RESP 16–26; TEMP 36.4–37; O2SAT 94–100
[2024-03-24 03:29] LABS: Partial Thromboplast Time 74.5 Seconds (24.1-36.2)
[2024-03-24] MEDS: Metoprolol Tartrate 25 MG Tablet PO ×3 (05:28→18:15)
[2024-03-24] MEDS: 0.9% Saline Lock 10 ML Syringe IV ×5 (05:29→20:40)
--- NOTE | 2024-03-24 07:48 | PCM.PN.HOSP ---
Reason for Visit Reason for Visit: Diagnoses Essential (primary) hypertension (03/23/24) Non-ST elevation (NSTEMI) myocardial infarction (03/23/24) Paroxysmal atrial fibrillation (03/23/24) Unspecified diastolic (congestive) heart failure (03/23/24) Chronic obstructive pulmonary disease with (acute) exacerbation (03/23/24) Chronic kidney disease, unspecified (03/23/24) Disorder of kidney and ureter, unspecified (03/23/24) Shortness of breath (03/23/24) Elevation of levels of liver transaminase levels (03/23/24) Abnormal levels of other serum enzymes (03/23/24) Tobacco use (03/23/24) Subjective Subjective Had anxiety overnight which required lorazepam. He felt better, but is still requesting anxiolytics. Objective Data Objective Data Vital Signs: Vital Signs Temp Pulse Resp BP Pulse Ox O2 Del Method 37.0 C 97 26 H 91/70 100 Room Air 03/24/24 04:00 03/24/24 07:12 03/24/24 07:12 03/24/24 07:12 03/24/24 07:12 03/24/24 07:12 Oxygen Delivery Method Room Air Weight: 80.9 kg Body Mass Index (BMI) 28.6 Intake & Output: Intake and Output for Last 24 Hours 03/22/24 03/23/24 03/24/24 23:59 23:59 23:59 Intake Total 2304.49 / 2321.19 204.44 / 204.44 Output Total 300 / 300 300 / 300 Balance 2003.49 / 2020.19 -95.56 / -95.56 Lab / Micro Data 03/24/24 07:45 03/24/24 07:45 Labs: Laboratory Results - last 24 hr 03/23/24 06:21: B-Natriuretic Peptide 1407.3 H 03/23/24 08:34: PT Cancelled, INR Cancelled, APTT Cancelled, Troponin I High Sens 294 H*, Urine Color Yellow, Urine Clarity Sl. Cloudy, Urine pH 6.0, Ur Specific [place] 1.020, Urine Protein 100 H, Urine Glucose (UA) Normal, Urine Ketones Negative, Urine Occult Blood Negative, Urine Nitrite Negative, Urine Bilirubin 1 H, Urine Urobilinogen 1 H, Ur Leukocyte Esterase Negative, Urine RBC 0 SEEN, Urine WBC 0-5 SEEN, Ur Squamous Epith Cells 0-5 SEEN, Urine Bacteria 0 SEEN, Urine Mucus 0 SEEN, Ethyl Alcohol 48.0 03/23/24 09:20: PT 15.2 H, INR 1.2, APTT 26.9 03/23/24 11:01: Lactic Acid 2.9 H* 03/23/24 14:50: APTT 63.3 H 03/23/24 16:33: Troponin I High Sens 244 H* 03/23/24 20:55: APTT 62.1 H 03/24/24 02:55: APTT 74.5 H Micro: Microbiology 03/23/24 08:34 Mucosa - Nose SARS-CoV-2, Influenza & RSV (PCR) - Final Radiography Diagnostic Testing: Radiology Impression Chest X-Ray 03/23/24 06:20 IMPRESSION: No evidence pulmonary edema. Lungs appear clear of acute disease. No pleural effusion or pneumothorax is evident. The cardiomediastinal silhouette is stable, without evidence significant cardiomegaly. Prior right mid clavicular fracture with stable alignment noted. No evidence of osseous uterine, at this point. Reading Location: [address] Echocardiogram 03/23/24 10:13 Interpretation Summary The estimated ejection fraction is 10 %. There is evidence of diastolic dysfunction. There is severe global hypokinesis of the left ventricle. There is moderate biatrial dilatation. Moderate (2+) mitral valve insufficiency. Moderately dilated left ventricle. Ordering Physician: Angel Lawton Referring Physician: Kojo Rondon Performed By: Ron Chatterjee RCS Rhythm Strip Rhythm Strip: A-fib Rate: 156 Physical Exam Const alert and no apparent distress HEENT head/scalp atraumatic and moist oral mucous membranes Resp normal respiratory effort, no retractions, no use of accessory muscles and clear to auscultation bilaterally Cardio Cardio Narrative: irregularly irregular. GI normal to inspection, nondistended, normoactive bowel sounds, soft to palpation, non-tender, non-distended and hepatosplenomegaly Extremity normal to inspection, full ROM and no clubbing, cyanosis or edema Neuro Sensorium / Orientation: awake, alert, oriented to person, oriented to place and oriented to time Assessment & Plan Assessment/Plan (1) Paroxysmal atrial fibrillation: PLAN: A-fib with RVR Patient received 2 doses of IV metoprolol in the emergency room and did not have a significant improvement of his heart rate. on amiodarone gtt then to be switched to PO amiodarone 200 TID for 5 days, then 200 BID for 1 month. DC digoxin and carvedilol. Add metoprolol Cardiology recommending heparin drip which has been initiated. (2) COPD exacerbation: PLAN: No pulmonary vascular congestion but cardiology recommend continue with diuresis which we will continue with furosemide. Patient does have some mild ankle edema. Unclear if this will contribute much regards to his shortness of breath. Unclear if also of his shortness of breath is least partially attributable to his A-fib with RVR. Will continue with bronchodilators. Add methylprednisolone. Viral studies ordered in the emergency room and are currently pending. (3) NSTEMI, initial episode of care: PLAN: Most likely type II, demand ischemia, given the atrial fibrillation with RVR. Troponin initially 343. Will monitor for now. Patient anticoagulate with heparin drip. (4) Transaminitis: PLAN: May be due to passive congestion. Will monitor for now. (5) Hyponatremia: PLAN: May be due to volume depletion with diuresis Check studies. Monitor. (6) HFrEF (heart failure with reduced ejection fraction): PLAN: pt was on IV furosemide, despite unremarkable CXR. Now his creatinine has worsened. DC furosemide and observe. (7) Acute kidney injury: PLAN: 2/2 overdiuresis. DC furosemide. Hold on IVF given his HF. monitor PLAN: Plan Chronic kidney disease stage III: I disagree with cardiology and I do not feel the patient has SAGAR. Will monitor that with the patient being on diuretics. VTE prophylaxis: Not indicated as patient is anticoagulated. CODE STATUS: Without me even prompting, patient states that he wants to be comfy. Clarified with the patient that he wishes to be DNR Comfort Care arrest no intubation. Charges/Coding Visit Charges Inpatient E&M: 62631 Subs Hosp L2
[2024-03-24 08:22] LABS: Absolute Lymphocyte Count 0.85 X10^3/uL (0.83-4.51); Absolute Neutrophil Count 7.3 X10^3/uL (2.0-7.7); Basophil# 0.02 X10^3/uL; Basophil% 0.2 % (0-1); Hematocrit 42.1 % (40-54); Hemoglobin 13.6 g/dL (13.0-16.5); Lymphocyte # 0.85 X10^3/ul (0.83-4.51); Lymphocyte % 9.8 % (19-41); Mean Corp Hgb Conc 32.3 g/dL (32-36); Mean Corpuscular Volume 83.7 fL (80-94); Mean Platelet Vol. 10.5 fl (6.2-12.0); Monocyte# 0.36 X10^3/uL; Monocyte% 4.1 % (0-10); NRBC Flagged by Analyzer 0.2 % (0-5); Neutrophil # 7.33 X10^3/uL (2.7-7.7); Neutrophil % 84.5 % (47-70); Platelet Count 329 K/mm3 (150-450); RBC Distribution Width CV 18.1 % (11.6-14.6); RBC Distribution Width SD 53.4 fl (35.1-43.9); Red Blood Count 5.03 M/mm3 (4.6-6.2); White Blood Count 8.7 K/mm3 (4.4-11.0)
[2024-03-24] MEDS: Amiodarone 360 MG in Dextrose 5% Viaflo Bag 192.8 ML 16.7 MG CONT INF (08:46)
[2024-03-24] MEDS: guaiFENesin/D-Methorphan TAB.SR.12H 1 TABLET PO ×2 (08:47→20:38)
[2024-03-24] MEDS: Aspirin 81 MG TAB.CHEW PO (08:47)
[2024-03-24] MEDS: Pantoprazole Sodium 40 MG Tablet PO (08:48)
[2024-03-24 08:59] LABS: AST(SGOT) 208 U/L (15-37); Alanine Aminotransfer ALT/SGPT 177 U/L (16-61); Albumin, Serum 3.1 g/dL (3.2-5.0); Alkaline Phosphatase 231 U/L (45-117); Anion Gap 15 (5-15); BUN 54 mg/dL (7-18); BUN/Creat Ratio 23.1 RATIO (10-20); Calcium,Total 8.2 mg/dL (8.5-10.1); Chloride 98 mmol/L (98-107); Creatinine, Serum 2.34 mg/dL (0.70-1.30); EST Glomerular Filtration Rate 30 mL/min (>60); Est Glom Filt Rate - Afr Amer 36 mL/min (>60); Estimated Creatinine Clearance 31.87 ml/min; Globulin 3.1 g/dL (2.2-4.2); Glucose 202 mg/dL (74-106); Potassium 4.2 mmol/L (3.5-5.1); Protein, Total 6.2 g/dL (6.4-8.2); Sodium Level 126 mmol/L (136-145)
[2024-03-24] MEDS: LORazepam 0.5 MG Tablet PO ×2 (09:34→21:21)
[2024-03-24] MEDS: Furosemide 40 MG/4 ML Vial IV (09:44)
[2024-03-24] MEDS: HEPARIN/D5w 25,000 UNITS 25,000 UNITS/250 ML IV.SOLN. 9 UNITS CONT INF (09:47)
--- NOTE | 2024-03-24 09:53 | PCM.PN.CARD ---
Subjective Subjective Patient reports he is feeling some better but he still gets very anxious in the evening hours. Probably related to his PND. He is resting comfortably at 30 degrees in the bed this morning. Echocardiogram done yesterday showed that his EF had deteriorated to 10% his RV was normal he had moderate bilateral atrial enlargement 2+ MR and a pulmonary artery pressure 40?45. The patient's sodium has depressed over the evening is down to 126 BUN and creatinine have been increased to 59 open 2.34. His GFR is down to 30. His LFTs have also continued to go up AST and ALT. The patient's blood pressures been running the 90?102/60 9?82. He remains in atrial fibrillation rate is better controlled on a combination of metoprolol Lanoxin and amiodarone heart rate is 98. He is 94 to 100% saturated on room air. The patient reiterated that he wants to be kept comfortable and we did discuss palliative/hospice care. Objective Data Vital Signs: Vital Signs Temp Pulse Resp BP Pulse Ox O2 Del Method 98.6 F 92 18 102/82 H 94 Room Air 03/24/24 04:00 03/24/24 08:56 03/24/24 08:56 03/24/24 08:56 03/24/24 08:56 03/24/24 08:56 Oxygen Delivery Method Room Air Weight: 178 lb 5.663 oz Body Mass Index (BMI) 28.6 Intake & Output: Intake and Output for Last 24 Hours 03/22/24 03/23/24 03/24/24 23:59 23:59 23:59 Intake Total 2304.49 / 2321.19 275.63 / 275.63 Output Total 300 / 300 300 / 300 Balance 49 / 2020.19 -24.37 / -24.37 Lab / Micro Data Attestation: I reviewed the patient's lab results. 03/24/24 07:45 03/24/24 07:45 Labs: Laboratory Results - last 24 hr 03/23/24 09:20: PT 15.2 H, INR 1.2, APTT 26.9 03/23/24 11:01: Lactic Acid 2.9 H* 03/23/24 14:50: APTT 63.3 H 03/23/24 16:33: Troponin I High Sens 244 H* 03/23/24 20:55: APTT 62.1 H 03/24/24 02:55: APTT 74.5 H 03/24/24 07:45: WBC 8.7, RBC 5.03, Hgb 13.6, Hct 42.1, MCV 83.7, MCH 27.0, MCHC 32.3, RDW Std Deviation 53.4 H, RDW Coeff of Loco 18.1 H, Plt Count 329, MPV 10.5, Immature Gran % (Auto) 1.400 H, Neut % (Auto) 84.5 H, Lymph % (Auto) 9.8 L, [place] % (Auto) 4.1, Eos % (Auto) 0.0, Baso % (Auto) 0.2, Absolute Neuts (auto) 7.3, Absolute Lymphs (auto) 0.85, Nucleated RBC % 0.2, Sodium 126 L, Potassium 4.2, Chloride 98, Carbon Dioxide 13.0 L, Anion Gap 15, BUN 54 H, Creatinine 2.34 H, Estim Creat Clear Calc 31.87, Est GFR (MDRD) Af Amer 36 L, Est GFR (MDRD) Non-Af 30 L, BUN/Creatinine Ratio 23.1 H, Glucose 202 H, Calcium 8.2 L, Total Bilirubin 2.30 H, AST 208 H, ALT 177 H, Alkaline Phosphatase 231 H, Total Protein 6.2 L, Albumin 3.1 L, Globulin 3.1, Albumin/Globulin Ratio 1.0 Micro: Microbiology 03/23/24 08:34 Urine, Clean Catch Urine Culture - Preliminary Culture exhibits no growth. 03/23/24 08:34 Mucosa - Nose SARS-CoV-2, Influenza & RSV (PCR) - Final Rhythm Strip Rhythm Strip: A-fib Rate: 98 Cardiology Labs/Tests 03/23/24 09:20: PT 15.2 H, INR 1.2, APTT 26.9 03/23/24 11:01: Lactic Acid 2.9 H* 03/23/24 14:50: APTT 63.3 H 03/23/24 20:55: APTT 62.1 H 03/24/24 02:55: APTT 74.5 H 03/24/24 07:45: WBC 8.7, RBC 5.03, Hgb 13.6, Hct 42.1, MCV 83.7, MCH 27.0, MCHC 32.3, Plt Count 329, MPV 10.5, Immature Gran % (Auto) 1.400 H, Neut % (Auto) 84.5 H, Lymph % (Auto) 9.8 L, [place] % (Auto) 4.1, Eos % (Auto) 0.0, Baso % (Auto) 0.2, Absolute Neuts (auto) 7.3, Nucleated RBC % 0.2, Sodium 126 L, Potassium 4.2, Chloride 98, Carbon Dioxide 13.0 L, Anion Gap 15, BUN 54 H, Creatinine 2.34 H, Est GFR (MDRD) Af Amer 36 L, Est GFR (MDRD) Non-Af 30 L, BUN/Creatinine Ratio 23.1 H, Glucose 202 H, Calcium 8.2 L, Total Bilirubin 2.30 H Rhythm: EKG: ECHO: Stress Test: Cardiac Cath: PCI: CT Surgery: Holter monitor: EPS: PPM: CXR: Chest CT Scan: Radiography Diagnostic Testing: Radiology Impression Echocardiogram 03/23/24 10:13 Interpretation Summary The estimated ejection fraction is 10 %. There is evidence of diastolic dysfunction. There is severe global hypokinesis of the left ventricle. There is moderate biatrial dilatation. Moderate (2+) mitral valve insufficiency. Moderately dilated left ventricle. Ordering Physician: Angel Lawton Referring Physician: Kojo Rondon Performed By: Ron Chatterjee RCS Physical Exam Const alert and oriented x3 HEENT normocephalic Eyes EOMs intact bilaterally Neck supple Chest inspection of chest normal Resp normal respiratory effort Auscultation: rales bilateral base Cardio Rate: regular rate Rhythm: abnormal rhythm irregularly irregular Heart Sounds: S1 normal, S2 normal and murmur systolic II/ soft holo left sternal border and right sternal border; Negative for click or gallop GI soft to palpation Extremity General Extremity: edema bilateral lower extremity Details: trace Neuro Neuro Narrative: Alert and oriented x 3 Psych mental status grossly normal Assessment & Plan Assessment/Plan (1) Acute kidney injury: PLAN: Patient has acute renal failure with creatinine increasing up to 54 BUN and creatinine of 2.34 GFR down to 30. This is consistent with hypoperfusion given his presumed hepatic congestion as well. The patient should continue with trying to diurese. (2) CHF (congestive heart failure): QUALIFIERS: Heart failure type: combined systolic and diastolic Heart failure chronicity: acute on chronic Qualified Code(s): I50.43 - Acute on chronic combined systolic (congestive) and diastolic (congestive) heart failure PLAN: Patient has a history of LV dysfunction EF is now depressed down in the 10% range. Given his worsening renal insufficiency and liver failure I feel that palliative care is indicated at this point in time. The patient is resolved to the fact that he is nearing end-of-life. I would recommend getting palliative/hospice care involved if he does not markedly improve in the next 24 hours. At this point time I do not feel that further invasive evaluation is indicated. The patient has requested been made DNR. (3) Atrial fibrillation with RVR: PLAN: Patient's rhythm is better controlled the rate is. I recommend that we switch him at the end of this bag of IV amiodarone to amiodarone 200 mg 3 times daily for 5 days and then 200 mg twice daily for a month. His Lanoxin should be discontinued as this will interact with amiodarone and his renal failure. We should continue his metoprolol to maintain his heart rate in the 80 to 100 bpm range. Carvedilol should be discontinued due to his blood pressure and the fact that the metoprolol would be a better beta-agapito. Lanoxin is already been discontinued. (4) Acute on chronic renal insufficiency: PLAN: Patient's renal function continues to deteriorate. His sodium is also down to 126. (5) Ischemic cardiomyopathy: PLAN: Echocardiogram revealed that he has severe global LV dysfunction EF in the 10% range. This is presumed to be ischemic in etiology. He is nearing end-of-life and therefore palliative and hospice care should be considered. Will continue to try and maintain symptom control with diuresis and oxygen supplementation as indicated. Given the patient's blood pressure and renal status would avoid ARB/RIZWANA inhibitor therapy at this time. PLAN: Plan 1. Continue with diuresis. 2. Will switch from IV amiodarone to p.o. amiodarone 200 mg 3 times daily x 1 week once this bag of IV amiodarone is infused. 3. Continue Lopressor for assistance with rate control. 4. Continue with heparin for the time being. Given the patient's liver failure would avoid on direct oral anticoagulants at this point in time. 5. Recommend palliative/hospice evaluation. 6. Dr. Anglin will be available the rest of the week if further assistance is needed. Charges/Coding Visit Charges Inpatient E&M: 86181 Init Hosp L3
[2024-03-24 10:52] LABS: Partial Thromboplast Time 65.4 Seconds (24.1-36.2)
[2024-03-24 16:40] LABS: Osmolality, Serum 289 mOsm/KG (280-301)
[2024-03-24 16:59] LABS: Urea Nitrogen, Urine 394 mg/dL (NO RANGE EST.); Urine Sodium < 5 mmol/L (Not Establ.)
[2024-03-24 17:15] LABS: Osmolality, Urine 345 mOsm/KG
[2024-03-24] MEDS: Acetaminophen 325 MG Tablet 650 MG PO (19:02)
[2024-03-24] MEDS: Ipratropium/Albuterol Sulfate 3 ML AMPUL.NEB INHALATION (19:50)
[2024-03-24] MEDS: Morphine 2 MG/ML Syringe IV (20:37)
[2024-03-24] MEDS: Amiodarone 200 MG Tablet PO (20:37)
[2024-03-24] MEDS: Lidocaine 5% Patch 1 PATCH TOPICAL (20:42)
[2024-03-25] VITALS (15 sets, daily range): BP systolic 89–125; BP diastolic 71–100; PULSE 79–125; RESP 12–20; TEMP 36–36.8; O2SAT 94–98
[2024-03-25] MEDS: 0.9% Saline Lock 10 ML Syringe IV ×3 (05:56→21:48)
[2024-03-25] MEDS: Amiodarone 200 MG Tablet PO ×3 (05:57→21:48)
[2024-03-25] MEDS: Metoprolol Tartrate 25 MG Tablet PO ×4 (05:57→23:51)
[2024-03-25 07:24] LABS: Absolute Lymphocyte Count 0.77 X10^3/uL (0.83-4.51); Absolute Neutrophil Count 7.3 X10^3/uL (2.0-7.7); Basophil# 0.01 X10^3/uL; Basophil% 0.1 % (0-1); Lymphocyte # 0.77 X10^3/ul (0.83-4.51); Lymphocyte % 8.9 % (19-41); Mean Corp Hgb Conc 33.3 g/dL (32-36); Mean Corpuscular Hgb 26.7 pg (27.0-32.0); Mean Corpuscular Volume 80.2 fL (80-94); Mean Platelet Vol. 10.4 fl (6.2-12.0); Monocyte# 0.49 X10^3/uL; Monocyte% 5.6 % (0-10); NRBC Flagged by Analyzer 0 % (0-5); Neutrophil # 7.32 X10^3/uL (2.7-7.7); Neutrophil % 84.2 % (47-70); Platelet Count 349 K/mm3 (150-450); RBC Distribution Width CV 18.4 % (11.6-14.6); RBC Distribution Width SD 50.7 fl (35.1-43.9); Red Blood Count 5.24 M/mm3 (4.6-6.2); White Blood Count 8.7 K/mm3 (4.4-11.0)
[2024-03-25] MEDS: Ipratropium/Albuterol Sulfate 3 ML AMPUL.NEB INHALATION ×2 (07:27→13:40)
[2024-03-25] MEDS: guaiFENesin/D-Methorphan TAB.SR.12H 1 TABLET PO ×2 (07:47→21:48)
[2024-03-25] MEDS: Aspirin 81 MG TAB.CHEW PO (07:47)
[2024-03-25] MEDS: Pantoprazole Sodium 40 MG Tablet PO (07:47)
[2024-03-25 08:28] LABS: ALB/GLOB Ratio 1.2 RATIO (0.9-2.4); AST(SGOT) 686 U/L (15-37); Alanine Aminotransfer ALT/SGPT 424 U/L (16-61); Albumin, Serum 3.6 g/dL (3.2-5.0); Alkaline Phosphatase 226 U/L (45-117); Anion Gap 15 (5-15); BUN 68 mg/dL (7-18); BUN/Creat Ratio 21.1 RATIO (10-20); Calcium,Total 8.4 mg/dL (8.5-10.1); Chloride 93 mmol/L (98-107); Creatinine, Serum 3.22 mg/dL (0.70-1.30); EST Glomerular Filtration Rate 21 mL/min (>60); Est Glom Filt Rate - Afr Amer 25 mL/min (>60); Estimated Creatinine Clearance 23.16 ml/min; Globulin 2.9 g/dL (2.2-4.2); Glucose 183 mg/dL (74-106); Potassium 4.1 mmol/L (3.5-5.1); Protein, Total 6.5 g/dL (6.4-8.2); Sodium Level 126 mmol/L (136-145)
--- NOTE | 2024-03-25 08:33 | PCM.PN.HOSP ---
Reason for Visit Reason for Visit: Diagnoses Hypo-osmolality and hyponatremia (03/23/24) Essential (primary) hypertension (03/23/24) Non-ST elevation (NSTEMI) myocardial infarction (03/23/24) Ischemic cardiomyopathy (03/23/24) Paroxysmal atrial fibrillation (03/23/24) Unspecified atrial fibrillation (03/23/24) Unspecified systolic (congestive) heart failure (03/23/24) Unspecified diastolic (congestive) heart failure (03/23/24) Acute on chronic combined systolic (congestive) and diastolic (congestive) heart failure (03/23/24) Chronic obstructive pulmonary disease with (acute) exacerbation (03/23/24) Acute kidney failure, unspecified (03/23/24) Chronic kidney disease, unspecified (03/23/24) Disorder of kidney and ureter, unspecified (03/23/24) Shortness of breath (03/23/24) Elevation of levels of liver transaminase levels (03/23/24) Abnormal levels of other serum enzymes (03/23/24) Tobacco use (03/23/24) Subjective Subjective Feeling well. No new complaints. Objective Data Objective Data Vital Signs: Vital Signs Temp Pulse Resp BP Pulse Ox O2 Del Method 36.6 C 91 12 125/94 H 96 Room Air 03/25/24 05:50 03/25/24 05:57 03/25/24 05:50 03/25/24 05:50 03/25/24 05:50 03/25/24 05:50 Oxygen Delivery Method Room Air Weight: 80.9 kg Body Mass Index (BMI) 28.6 Intake & Output: Intake and Output for Last 24 Hours 03/23/24 03/24/24 03/25/24 23:59 23:59 23:59 Intake Total 2304.49 / 2321.19 1367.85 / 1367.85 261.45 / 261.45 Output Total 300 / 300 300 / 750 450 / 450 Balance 1067.85 / 617.85 -188.55 / -188.55 Lab / Micro Data 03/25/24 07:04 03/25/24 07:04 Labs: Laboratory Results - last 24 hr 03/24/24 07:45: Sodium 126 L, Potassium 4.2, Chloride 98, Carbon Dioxide 13.0 L, Anion Gap 15, BUN 54 H, Creatinine 2.34 H, Estim Creat Clear Calc 31.87, Est GFR (MDRD) Af Amer 36 L, Est GFR (MDRD) Non-Af 30 L, BUN/Creatinine Ratio 23.1 H, Glucose 202 H, Calcium 8.2 L, Total Bilirubin 2.30 H, AST 208 H, ALT 177 H, Alkaline Phosphatase 231 H, Total Protein 6.2 L, Albumin 3.1 L, Globulin 3.1, Albumin/Globulin Ratio 1.0 03/24/24 09:27: APTT 65.4 H 03/24/24 15:30: APTT 62.0 H, Serum Osmolality 289 03/24/24 16:20: Urine Osmolality 345, Ur Random Sodium < 5, Urine Creatinine 139.00, Urine Urea Nitrogen 394 03/25/24 07:04: WBC 8.7, RBC 5.24, Hgb 14.0, Hct 42.0, MCV 80.2, MCH 26.7 L, MCHC 33.3, RDW Std Deviation 50.7 H, RDW Coeff of Loco 18.4 H, Plt Count 349, MPV 10.4, Immature Gran % (Auto) 1.200 H, Neut % (Auto) 84.2 H, Lymph % (Auto) 8.9 L, [place] % (Auto) 5.6, Eos % (Auto) 0.0, Baso % (Auto) 0.1, Absolute Neuts (auto) 7.3, Absolute Lymphs (auto) 0.77 L, Nucleated RBC % 0, APTT 50.0 H, Sodium 126 L, Potassium 4.1, Chloride 93 L, Carbon Dioxide 18.0 L, Anion Gap 15, BUN 68 H, Creatinine 3.22 H, Estim Creat Clear Calc 23.16, Est GFR (MDRD) Af Amer 25 L, Est GFR (MDRD) Non-Af 21 L, BUN/Creatinine Ratio 21.1 H, Glucose 183 H, Calcium 8.4 L, Total Bilirubin 1.70 H, AST 686 H, ALT 424 H, Alkaline Phosphatase 226 H, Total Protein 6.5, Albumin 3.6, Globulin 2.9, Albumin/Globulin Ratio 1.2, TSH 4.060 H, Cortisol 42.30 H Micro: Microbiology 03/23/24 08:34 Urine, Clean Catch Urine Culture - Preliminary Culture exhibits no growth. 03/23/24 08:34 Mucosa - Nose SARS-CoV-2, Influenza & RSV (PCR) - Final Rhythm Strip Rhythm Strip: A-fib Rate: 98 Physical Exam Const alert and no apparent distress HEENT head/scalp atraumatic and moist oral mucous membranes Resp normal respiratory effort, no retractions, no use of accessory muscles and clear to auscultation bilaterally Cardio regular rate, regular rhythm, S1 normal heart sound and S2 normal heart sound GI normal to inspection, nondistended, normoactive bowel sounds, soft to palpation, non-tender and non-distended Assessment & Plan Assessment/Plan (1) Paroxysmal atrial fibrillation: PLAN: A-fib with RVR Patient received 2 doses of IV metoprolol in the emergency room and did not have a significant improvement of his heart rate. on amiodarone gtt then to be switched to PO amiodarone 200 TID for 5 days, then 200 BID for 1 month. DC digoxin and carvedilol. Add metoprolol Cardiology recommending heparin drip which has been initiated. (2) COPD exacerbation: PLAN: No pulmonary vascular congestion but cardiology recommend continue with diuresis which we will continue with furosemide. Patient does have some mild ankle edema. Unclear if this will contribute much regards to his shortness of breath. Unclear if also of his shortness of breath is least partially attributable to his A-fib with RVR. Will continue with bronchodilators. Add methylprednisolone. Viral studies ordered in the emergency room and are currently pending. (3) NSTEMI, initial episode of care: PLAN: Most likely type II, demand ischemia, given the atrial fibrillation with RVR. Troponin initially 343. Will monitor for now. Patient anticoagulate with heparin drip. (4) Transaminitis: PLAN: May be due to passive congestion. Will monitor for now. US showed hepatomegaly. (5) Hyponatremia: PLAN: May be due to volume depletion with diuresis Check studies. Monitor. (6) HFrEF (heart failure with reduced ejection fraction): PLAN: Chronic. No in acute exacerbation. (7) Acute kidney injury: PLAN: 2/2 overdiuresis. DC furosemide. Hold on IVF given his HF. monitor PLAN: Plan Chronic kidney disease stage III: I disagree with cardiology and I do not feel the patient has SAGAR. Will monitor that with the patient being on diuretics. VTE prophylaxis: Not indicated as patient is anticoagulated. CODE STATUS: Without me even prompting, patient states that he wants to be comfy. Clarified with the patient that he wishes to be DNR Comfort Care arrest no intubation. Charges/Coding Visit Charges Inpatient E&M: 84461 Subs Hosp L2
--- NOTE | 2024-03-25 08:36 | US_ITS ---
PROCEDURE: ABDOMEN LIMITED REASON FOR EXAM: Transaminitis. COMPARISON: None FINDINGS: Liver: Grossly normal size and echotexture. Hepatomegaly. The liver measures 20.8 cm. Gallbladder: No stones, sludge, wall thickening or tenderness. Common bile duct: Normal measuring 2.5 mm. Pancreas: Visualized portions are sonographically unremarkable. Visualized portions of the right kidney are unremarkable. 1.4 cm x 1.4 cm x 1.2 cm cyst in the lower pole of the right kidney. No right upper quadrant ascites. US/Abdomen Limited IMPRESSION: Hepatomegaly. Reading Location: [place] [id number]
[2024-03-25] MEDS: Lidocaine 5% Patch 1 PATCH TOPICAL (09:45)
[2024-03-25] MEDS: HEPARIN/D5w 25,000 UNITS 25,000 UNITS/250 ML IV.SOLN. 10 UNITS CONT INF (13:48)
[2024-03-25 14:59] LABS: Partial Thromboplast Time 65.8 Seconds (24.1-36.2)
--- NOTE | 2024-03-25 15:19 | CASEMGMT ---
Therapy is recommending patient go somewhere short term for rehab. SW met with patient. Introduced self and role at [facility]. Patient agreed he needs to go somewhere for rehab. SW provided patient with a list of shelter facility providers including quality and resource use data and consistent with patient?s preferred geographic region, medical needs, and insurance network were provided from the [employer] Guide. SW explained patient just needs to provide SW with 3-4 preferences and SW will take care of contacting the facilities. Patient mentioned [facility]. Patient said he will review the list tonight. Patient asked if SW could make the print on the list bigger. SW re-printed the list bigger for patient. patient thanked SW. Plan: SNF pending choices, accepting facility, and pre-cert. Sydni HENDRICKS
[2024-03-25] MEDS: Acetaminophen 325 MG Tablet 650 MG PO (17:50)
[2024-03-25 20:14] LABS: Partial Thromboplast Time 72.9 Seconds (24.1-36.2)
[2024-03-25] MEDS: LORazepam 0.5 MG Tablet PO (21:48)
[2024-03-26] VITALS (14 sets, daily range): BP systolic 105–133; BP diastolic 59–95; PULSE 63–126; RESP 12–25; TEMP 36.2–36.6; O2SAT 97–99
[2024-03-26] MEDS: 0.9% Saline Lock 10 ML Syringe IV ×2 (06:41→21:41)
[2024-03-26] MEDS: Metoprolol Tartrate 25 MG Tablet PO ×3 (06:42→17:24)
[2024-03-26] MEDS: Amiodarone 200 MG Tablet PO ×3 (06:45→21:40)
[2024-03-26 07:05] LABS: ALB/GLOB Ratio 1.2 RATIO (0.9-2.4); AST(SGOT) 200 U/L (15-37); Alanine Aminotransfer ALT/SGPT 328 U/L (16-61); Albumin, Serum 3.3 g/dL (3.2-5.0); Alkaline Phosphatase 202 U/L (45-117); Anion Gap 15 (5-15); BUN 75 mg/dL (7-18); Calcium,Total 8.3 mg/dL (8.5-10.1); Chloride 94 mmol/L (98-107); Creatinine, Serum 3.12 mg/dL (0.70-1.30); EST Glomerular Filtration Rate 22 mL/min (>60); Est Glom Filt Rate - Afr Amer 26 mL/min (>60); Globulin 2.8 g/dL (2.2-4.2); Glucose 191 mg/dL (74-106); Potassium 3.9 mmol/L (3.5-5.1); Protein, Total 6.1 g/dL (6.4-8.2); Sodium Level 126 mmol/L (136-145)
[2024-03-26] MEDS: Ipratropium/Albuterol Sulfate 3 ML AMPUL.NEB INHALATION ×3 (07:32→19:07)
--- NOTE | 2024-03-26 08:51 | PN.HOSP_ITS ---
Reason for Visit Reason for Visit: Diagnoses Hypo-osmolality and hyponatremia (03/23/24) Essential (primary) hypertension (03/23/24) Non-ST elevation (NSTEMI) myocardial infarction (03/23/24) Ischemic cardiomyopathy (03/23/24) Paroxysmal atrial fibrillation (03/23/24) Unspecified atrial fibrillation (03/23/24) Unspecified systolic (congestive) heart failure (03/23/24) Unspecified diastolic (congestive) heart failure (03/23/24) Acute on chronic combined systolic (congestive) and diastolic (congestive) heart failure (03/23/24) Chronic obstructive pulmonary disease with (acute) exacerbation (03/23/24) Acute kidney failure, unspecified (03/23/24) Chronic kidney disease, unspecified (03/23/24) Disorder of kidney and ureter, unspecified (03/23/24) Shortness of breath (03/23/24) Elevation of levels of liver transaminase levels (03/23/24) Abnormal levels of other serum enzymes (03/23/24) Tobacco use (03/23/24) Subjective Subjective No new issues. Objective Data Objective Data Vital Signs: Vital Signs Temp Pulse Resp BP Pulse Ox O2 Del Method 36.6 C 96 18 133/77 H 97 Room Air 03/26/24 06:47 03/26/24 06:47 03/26/24 06:47 03/26/24 06:47 03/26/24 06:47 03/26/24 06:47 Oxygen Delivery Method Room Air Weight: 80.9 kg Body Mass Index (BMI) 28.6 Intake & Output: Intake and Output for Last 24 Hours 03/24/24 03/25/24 03/26/24 23:59 23:59 23:59 Intake Total 1367.85 / 1367.85 1072.93 / 1072.93 Output Total 300 / 750 700 / 700 Balance 1067.85 / 617.85 372.93 / 372.93 Lab / Micro Data 03/25/24 07:04 03/26/24 05:27 Labs: Laboratory Results - last 24 hr 03/25/24 13:55: APTT 65.8 H 03/25/24 19:51: APTT 72.9 H 03/26/24 05:27: Sodium 126 L, Potassium 3.9, Chloride 94 L, Carbon Dioxide 17.0 L, Anion Gap 15, BUN 75 H, Creatinine 3.12 H, Estim Creat Clear Calc 23.90, Est GFR (MDRD) Af Amer 26 L, Est GFR (MDRD) Non-Af 22 L, BUN/Creatinine Ratio 24.0 H , Glucose 191 H, Calcium 8.3 L, Total Bilirubin 1.30 H, AST 200 H, ALT 328 H, A lkaline Phosphatase 202 H, Total Protein 6.1 L, Albumin 3.3, Globulin 2.8, Albumin/Globulin Ratio 1.2 Micro: Microbiology 03/23/24 08:34 Blood Culture (Wb) - Right Hand Blood Culture - Preliminary No growth in 48 hours. 03/23/24 06:38 Blood Culture (Wb) - Left Wrist Blood Culture - Preliminary No growth in 48 hours. 03/23/24 08:34 Urine, Clean Catch Urine Culture - Final Culture exhibits no growth. 03/23/24 08:34 Mucosa - Nose SARS-CoV-2, Influenza & RSV (PCR) - Final Radiography Diagnostic Testing: Radiology Impression Abdomen Ultrasound 03/25/24 08:36 IMPRESSION: Hepatomegaly. Reading Location: [place] [address] Rhythm Strip Rhythm Strip: A-fib Rate: 98 Physical Exam Const alert and no apparent distress HEENT head/scalp atraumatic and moist oral mucous membranes Resp normal respiratory effort, no retractions, no use of accessory muscles and clear to auscultation bilaterally Cardio regular rate, regular rhythm, S1 normal heart sound and S2 normal heart sound GI normal to inspection, nondistended, normoactive bowel sounds and soft to palpation Extremity Extremity Narrative: trace LE edema. Assessment & Plan Assessment/Plan (1) Paroxysmal atrial fibrillation: PLAN: A-fib with RVR Patient received 2 doses of IV metoprolol in the emergency room and did not have a significant improvement of his heart rate. on amiodarone gtt then to be switched to PO amiodarone 200 TID for 5 days, then 200 BID for 1 month. DC digoxin and carvedilol. Add metoprolol Cardiology recommending heparin drip which has been initiated. (2) COPD exacerbation: PLAN: No pulmonary vascular congestion but cardiology recommend continue with diuresis which we will continue with furosemide. Patient does have some mild ankle edema. Unclear if this will contribute much regards to his shortness of breath. Unclear if also of his shortness of breath is least partially attributable to his A-fib with RVR. Will continue with bronchodilators. Add methylprednisolone. Viral studies ordered in the emergency room and are currently pending. (3) NSTEMI, initial episode of care: PLAN: Most likely type II, demand ischemia, given the atrial fibrillation with RVR. Troponin initially 343. Will monitor for now. Patient anticoagulate with heparin drip. (4) Transaminitis: PLAN: May be due to passive congestion. Will monitor for now. US showed hepatomegaly. Improving. (5) Hyponatremia: PLAN: May be due to volume depletion with diuresis Check studies. Monitor. (6) HFrEF (heart failure with reduced ejection fraction): PLAN: Chronic. No in acute exacerbation. (7) Acute kidney injury: PLAN: 2/2 overdiuresis. DC furosemide. Hold on IVF given his HF. monitor PLAN: Plan Chronic kidney disease stage III: I disagree with cardiology and I do not feel the patient has SAGAR. Will monitor that with the patient being on diuretics. VTE prophylaxis: Not indicated as patient is anticoagulated. CODE STATUS: Without me even prompting, patient states that he wants to be comfy. Clarified with the patient that he wishes to be DNR Comfort Care arrest no intubation. Disposition: plan on going to SNF. Charges/Coding Visit Charges Inpatient E&M: 68955 Subs Hosp L2
[2024-03-26] MEDS: guaiFENesin/D-Methorphan TAB.SR.12H 1 TABLET PO ×2 (09:00→21:40)
[2024-03-26] MEDS: Lidocaine 5% Patch 1 PATCH TOPICAL (09:00)
[2024-03-26] MEDS: Pantoprazole Sodium 40 MG Tablet PO (09:00)
[2024-03-26] MEDS: Aspirin 81 MG TAB.CHEW PO (09:00)
[2024-03-26 09:10] LABS: Partial Thromboplast Time 78.2 Seconds (24.1-36.2)
--- NOTE | 2024-03-26 10:15 | CASEMGMT ---
LEEANNE spoke with patient and his 3 SNF choices are: [facility], [facility], and [facility]. LEEANNE asked Rosalind to send a referral to [facility]. Sydni HENDRICKS
--- NOTE | 2024-03-26 11:04 | CASEMGMT ---
Referral sent to [facility] with acceptance. Precert started. Rosalind Peck DC Planning Asst.
[2024-03-26] MEDS: Acetaminophen 325 MG Tablet 650 MG PO ×2 (12:19→20:36)
[2024-03-26] MEDS: LORazepam 0.5 MG Tablet PO (12:19)
--- NOTE | 2024-03-26 12:22 | EKG12_ITS ---
Test Reason : CP Blood Pressure : */* mmHG Vent. Rate : 108 BPM Atrial Rate : 125 BPM P-R Int : 198 ms QRS Dur : 158 ms QT Int : 394 ms P-R-T Axes : 42 -68 106 degrees QTcB Int : 527 ms Atrial fibrillation Left atrial enlargement Left axis deviation Right bundle branch block Left ventricular hypertrophy with repolarization abnormality ( R in aVL ) Inferior infarct (cited on or before 23-Mar-2024) Abnormal ECG When compared with ECG of 23-Mar-2024 06:14, Sinus rhythm has replaced Atrial fibrillation Confirmed by NARENDRA DURAN, AMI ([id number]), medical transcription editor SATNAM RAM ([id number]) on 03/29/2024 8:27:05 AM Referred By: KANG Confirmed By: AMI MACKEY MD
--- NOTE | 2024-03-26 13:10 | RAD_ITS ---
EXAM: CHEST 1 VIEW (PORTABLE) CLINICAL HISTORY: Dyspnea. COMPARISON: Comparison is made with prior study dated March 23, 2024. TECHNIQUE: Portable chest radiograph was obtained. FINDINGS: EKG electrodes are seen. Mild cardiomegaly. Healing right midclavicular fracture. Degenerative changes of the thoracic spine and mild levoscoliosis. RAD/Chest 1 View (Portable) IMPRESSION: No acute abnormality is seen. Reading Location: [place]
--- NOTE | 2024-03-26 14:13 | CASEMGMT ---
SW spoke with patient as he triggered SDOH. Patient declined need for any resources. Patient stated he plans on going to a residential at discharge. Sydni HENDRICKS
[2024-03-26 14:18] LABS: Troponin-I HS 120 pg/mL (3.0-78.0)
[2024-03-26] MEDS: HEPARIN/D5w 25,000 UNITS 25,000 UNITS/250 ML IV.SOLN. 9 UNITS CONT INF (15:30)
[2024-03-26 15:57] LABS: Partial Thromboplast Time 65.7 Seconds (24.1-36.2)
[2024-03-26] MEDS: MELATONIN 3 MG TABLET PO (21:53)
[2024-03-26 21:54] LABS: Partial Thromboplast Time 55.7 Seconds (24.1-36.2)
[2024-03-27] VITALS (10 sets, daily range): BP systolic 97–139; BP diastolic 68–106; PULSE 94–120; RESP 15–20; TEMP 36.1–36.6; O2SAT 95–98
[2024-03-27] MEDS: Metoprolol Tartrate 25 MG Tablet PO ×5 (01:32→23:49)
[2024-03-27] MEDS: LORazepam 0.5 MG Tablet PO ×3 (01:36→20:04)
[2024-03-27] MEDS: Amiodarone 200 MG Tablet PO ×3 (05:41→21:42)
[2024-03-27] MEDS: 0.9% Saline Lock 10 ML Syringe IV (05:41)
[2024-03-27 07:06] LABS: Partial Thromboplast Time 60.1 Seconds (24.1-36.2)
[2024-03-27 07:40] LABS: ALB/GLOB Ratio 1.3 RATIO (0.9-2.4); AST(SGOT) 344 U/L (15-37); Alanine Aminotransfer ALT/SGPT 406 U/L (16-61); Albumin, Serum 3.4 g/dL (3.2-5.0); Alkaline Phosphatase 211 U/L (45-117); Anion Gap 15 (5-15); BUN 79 mg/dL (7-18); BUN/Creat Ratio 25.9 RATIO (10-20); Calcium,Total 8.3 mg/dL (8.5-10.1); Chloride 95 mmol/L (98-107); Creatinine, Serum 3.05 mg/dL (0.70-1.30); EST Glomerular Filtration Rate 22 mL/min (>60); Est Glom Filt Rate - Afr Amer 27 mL/min (>60); Estimated Creatinine Clearance 24.45 ml/min; Globulin 2.7 g/dL (2.2-4.2); Glucose 233 mg/dL (74-106); Potassium 4.2 mmol/L (3.5-5.1); Protein, Total 6.1 g/dL (6.4-8.2); Sodium Level 127 mmol/L (136-145)
--- NOTE | 2024-03-27 08:52 | PN.HOSP_ITS ---
Reason for Visit Reason for Visit: Diagnoses Hypo-osmolality and hyponatremia (03/23/24) Essential (primary) hypertension (03/23/24) Non-ST elevation (NSTEMI) myocardial infarction (03/23/24) Ischemic cardiomyopathy (03/23/24) Paroxysmal atrial fibrillation (03/23/24) Unspecified atrial fibrillation (03/23/24) Unspecified systolic (congestive) heart failure (03/23/24) Unspecified diastolic (congestive) heart failure (03/23/24) Acute on chronic combined systolic (congestive) and diastolic (congestive) heart failure (03/23/24) Chronic obstructive pulmonary disease with (acute) exacerbation (03/23/24) Acute kidney failure, unspecified (03/23/24) Chronic kidney disease, unspecified (03/23/24) Disorder of kidney and ureter, unspecified (03/23/24) Shortness of breath (03/23/24) Elevation of levels of liver transaminase levels (03/23/24) Abnormal levels of other serum enzymes (03/23/24) Tobacco use (03/23/24) Subjective Subjective Feeling very anxious. Objective Data Objective Data Vital Signs: Vital Signs Temp Pulse Resp BP Pulse Ox O2 Del Method 36.1 C L 117 H 20 H 102/89 H 98 Room Air 03/27/24 03:20 03/27/24 05:41 03/27/24 03:20 03/27/24 05:41 03/27/24 03:20 03/27/24 03:39 Oxygen Delivery Method Room Air Weight: 80.9 kg Body Mass Index (BMI) 28.6 Intake & Output: Intake and Output for Last 24 Hours 03/25/24 03/26/24 03/27/24 23:59 23:59 23:59 Intake Total 1072.93 / 1072.93 1190.67 / 1190.67 Output Total 700 / 700 1100 / 1100 300 / 300 Balance 372.93 / 372.93 90.67 / 90.67 -300 / -300 Lab / Micro Data 03/25/24 07:04 03/27/24 06:34 Labs: Laboratory Results - last 24 hr 03/26/24 08:02: APTT 78.2 H 03/26/24 13:37: Troponin I High Sens 120 H 03/26/24 15:30: APTT 65.7 H 03/26/24 21:25: APTT 55.7 H 03/27/24 06:34: APTT 60.1 H, Sodium 127 L, Potassium 4.2, Chloride 95 L, Carbon Dioxide 17.0 L, Anion Gap 15, BUN 79 H, Creatinine 3.05 H, Estim Creat Clear Calc 24.45, Est GFR (MDRD) Af Amer 27 L, Est GFR (MDRD) Non-Af 22 L, B UN/Creatinine Ratio 25.9 H, Glucose 233 H, Calcium 8.3 L, Total Bilirubin 1.40 H , AST 344 H, ALT 406 H, Alkaline Phosphatase 211 H, Total Protein 6.1 L, Albumin 3.4, Globulin 2.7, Albumin/Globulin Ratio 1.3 Micro: Microbiology 03/23/24 08:34 Blood Culture (Wb) - Right Hand Blood Culture - Preliminary No growth in 48 hours. 03/23/24 06:38 Blood Culture (Wb) - Left Wrist Blood Culture - Preliminary No growth in 48 hours. 03/23/24 08:34 Urine, Clean Catch Urine Culture - Final Culture exhibits no growth. 03/23/24 08:34 Mucosa - Nose SARS-CoV-2, Influenza & RSV (PCR) - Final Radiography Diagnostic Testing: Radiology Impression Chest X-Ray 03/26/24 13:10 IMPRESSION: No acute abnormality is seen. Reading Location: [facility] Rhythm Strip Rhythm Strip: A-fib Rate: 98 Physical Exam Const alert and no apparent distress Resp normal respiratory effort and no retractions Neuro Sensorium / Orientation: awake and alert Assessment & Plan Assessment/Plan (1) Paroxysmal atrial fibrillation: PLAN: A-fib with RVR Patient received 2 doses of IV metoprolol in the emergency room and did not have a significant improvement of his heart rate. on amiodarone gtt then to be switched to PO amiodarone 200 TID for 5 days, then 200 BID for 1 month. DC digoxin and carvedilol. Add metoprolol Cardiology recommending heparin drip which has been initiated. Unable to DOACs until kidney function improves (Cr will need to be less than 2.5 (2) COPD exacerbation: PLAN: Improved. Dc methylpred. Start prednisone. (3) NSTEMI, initial episode of care: PLAN: Most likely type II, demand ischemia, given the atrial fibrillation with RVR. Troponin initially 343. Will monitor for now. Patient anticoagulate with heparin drip. (4) Transaminitis: PLAN: May be due to passive congestion. Will monitor for now. US showed hepatomegaly. Improving. stop statin. likely not the primary cause, but complicating (5) Hyponatremia: PLAN: May be due to volume depletion with diuresis Check studies. Monitor. (6) HFrEF (heart failure with reduced ejection fraction): PLAN: Chronic. No in acute exacerbation. (7) Acute kidney injury: PLAN: 2/2 overdiuresis. overall improving since discontinuing furosemide. PLAN: Plan Anxiety: complicates care and recovery. Palliation is in order. Increase frequency of PRN lorazepam. VTE prophylaxis: Not indicated as patient is anticoagulated. CODE STATUS: Without me even prompting, patient states that he wants to be comfy. Clarified with the patient that he wishes to be DNR Comfort Care arrest no intubation. Disposition: plan on going to SNF. Charges/Coding Visit Charges Inpatient E&M: 11172 Subs Hosp L2
[2024-03-27] MEDS: Lidocaine 5% Patch 1 PATCH TOPICAL (09:54)
[2024-03-27] MEDS: guaiFENesin/D-Methorphan TAB.SR.12H 1 TABLET PO ×2 (09:54→21:42)
[2024-03-27] MEDS: Pantoprazole Sodium 40 MG Tablet PO (09:54)
[2024-03-27] MEDS: Isosorbide Mononitrate 30 MG Tablet PO (09:54)
[2024-03-27] MEDS: Aspirin 81 MG TAB.CHEW PO (09:54)
[2024-03-27] MEDS: Acetaminophen 325 MG Tablet 650 MG PO (14:46)
[2024-03-27] MEDS: HEPARIN/D5w 25,000 UNITS 25,000 UNITS/250 ML IV.SOLN. 9 UNITS CONT INF (17:34)
[2024-03-28] VITALS (8 sets, daily range): BP systolic 103–151; BP diastolic 84–122; PULSE 50–109; RESP 18–24; TEMP 36.6; O2SAT 95–99
[2024-03-28] MEDS: MELATONIN 3 MG TABLET PO (00:21)
[2024-03-28] MEDS: Acetaminophen 325 MG Tablet 650 MG PO ×2 (00:21→16:24)
[2024-03-28] MEDS: Ondansetron 4 MG/2 ML Vial IV (01:06)
[2024-03-28] MEDS: 0.9% Saline Lock 10 ML Syringe IV (01:06)
[2024-03-28] MEDS: LORazepam 0.5 MG Tablet PO ×2 (02:37→16:21)
[2024-03-28] MEDS: Amiodarone 200 MG Tablet PO ×3 (05:41→20:08)
[2024-03-28] MEDS: Metoprolol Tartrate 25 MG Tablet PO ×2 (05:41→11:25)
[2024-03-28 06:45] LABS: Partial Thromboplast Time 96.5 Seconds (24.1-36.2)
[2024-03-28] MEDS: Pantoprazole Sodium 40 MG Tablet PO (08:48)
[2024-03-28] MEDS: Aspirin 81 MG TAB.CHEW PO (08:48)
[2024-03-28] MEDS: predniSONE 20 MG Tablet 40 MG PO (08:48)
[2024-03-28] MEDS: Lidocaine 5% Patch 1 PATCH TOPICAL (08:48)
[2024-03-28] MEDS: guaiFENesin/D-Methorphan TAB.SR.12H 1 TABLET PO ×2 (08:49→20:08)
--- NOTE | 2024-03-28 09:15 | PCM.PN.HOSP ---
Reason for Visit Reason for Visit: Diagnoses Hypo-osmolality and hyponatremia (03/23/24) Essential (primary) hypertension (03/23/24) Non-ST elevation (NSTEMI) myocardial infarction (03/23/24) Ischemic cardiomyopathy (03/23/24) Paroxysmal atrial fibrillation (03/23/24) Unspecified atrial fibrillation (03/23/24) Unspecified systolic (congestive) heart failure (03/23/24) Unspecified diastolic (congestive) heart failure (03/23/24) Acute on chronic combined systolic (congestive) and diastolic (congestive) heart failure (03/23/24) Chronic obstructive pulmonary disease with (acute) exacerbation (03/23/24) Acute kidney failure, unspecified (03/23/24) Chronic kidney disease, unspecified (03/23/24) Disorder of kidney and ureter, unspecified (03/23/24) Shortness of breath (03/23/24) Elevation of levels of liver transaminase levels (03/23/24) Abnormal levels of other serum enzymes (03/23/24) Tobacco use (03/23/24) Subjective Subjective Still overwhelmed, but the ativan has been helping. Objective Data Objective Data Vital Signs: Vital Signs Temp Pulse Resp BP Pulse Ox O2 Del Method 36.6 C 59 L 24 H 103/84 H 98 Room Air 03/28/24 07:58 03/28/24 07:58 03/28/24 07:58 03/28/24 07:58 03/28/24 07:58 03/28/24 07:58 Oxygen Delivery Method Room Air Weight: 80.9 kg Body Mass Index (BMI) 28.6 Intake & Output: Intake and Output for Last 24 Hours 03/26/24 03/27/24 03/28/24 23:59 23:59 23:59 Intake Total 1190.67 / 1190.67 584.6 / 704.6 238.95 / 238.95 Output Total 1100 / 1100 500 / 500 250 / 250 Balance 90.67 / 90.67 84.6 / 204.6 -11.05 / -11.05 Lab / Micro Data 03/25/24 07:04 03/28/24 04:32 Labs: Laboratory Results - last 24 hr 03/28/24 04:32: APTT 96.5 H* Micro: Microbiology 03/23/24 06:38 Blood Culture (Wb) - Left Wrist Blood Culture - Final No growth in 5 days. 03/23/24 08:34 Blood Culture (Wb) - Right Hand Blood Culture - Preliminary No growth in 48 hours. 03/23/24 08:34 Urine, Clean Catch Urine Culture - Final Culture exhibits no growth. 03/23/24 08:34 Mucosa - Nose SARS-CoV-2, Influenza & RSV (PCR) - Final Rhythm Strip Rhythm Strip: A-fib Rate: 98 Physical Exam Const Constitutional Narrative: up in chair. no respiratory distress. Cardio regular rate and regular rhythm Assessment & Plan Assessment/Plan (1) Paroxysmal atrial fibrillation: PLAN: A-fib with RVR Patient received 2 doses of IV metoprolol in the emergency room and did not have a significant improvement of his heart rate. on amiodarone gtt then to be switched to PO amiodarone 200 TID for 5 days, then 200 BID for 1 month. DC digoxin and carvedilol. Add metoprolol Cardiology recommending heparin drip which has been initiated. Unable to DOACs until kidney function improves (Cr will need to be less than 2.5 (2) COPD exacerbation: PLAN: Improved. Dc methylpred. Start prednisone. (3) NSTEMI, initial episode of care: PLAN: Most likely type II, demand ischemia, given the atrial fibrillation with RVR. Troponin initially 343. Will monitor for now. Patient anticoagulate with heparin drip. (4) Transaminitis: PLAN: Ongoing. May be due to passive congestion, but cannot rule out overall decompensation. Will monitor for now. US showed hepatomegaly. Improving. stop statin. likely not the primary cause, but complicating (5) Hyponatremia: PLAN: May be due to volume depletion with diuresis Check studies. Monitor. (6) HFrEF (heart failure with reduced ejection fraction): PLAN: Chronic. No in acute exacerbation. (7) Acute kidney injury: PLAN: 2/2 overdiuresis. overall improving since discontinuing furosemide, but worse today despite no diuresis PLAN: Plan Anxiety: complicates care and recovery. Palliation is in order. Increase frequency of PRN lorazepam. VTE prophylaxis: Not indicated as patient is anticoagulated. CODE STATUS: Without me even prompting, patient states that he wants to be comfy. Clarified with the patient that he wishes to be DNR Comfort Care arrest no intubation. Advance care planning: Spent additional 20 minutes where I discussed with the patient about his deterioration of his kidney function as well as his ongoing transaminitis. I told him I could not rule out overall decompensation overall. But given his issues with anxiety, that he is with no children, I recommended hospice for focusing on management of his symptoms and the emphasizing overall medical care. He seemed open to that and would be willing to speak with hospice. I feel that with his severe cardiomyopathy and his worsening kidney function and ongoing transaminitis, his long-term prognosis is poor. Charges/Coding Visit Charges Inpatient E&M: 27107 Subs Hosp L1 Procedures Hospitalists Procedures: 76006 Advncd Care Plan 30 Min
[2024-03-28 10:15] LABS: ALB/GLOB Ratio 1.2 RATIO (0.9-2.4); AST(SGOT) 390 U/L (15-37); Alanine Aminotransfer ALT/SGPT 502 U/L (16-61); Albumin, Serum 3.6 g/dL (3.2-5.0); Alkaline Phosphatase 231 U/L (45-117); Anion Gap 18 (5-15); BUN 89 mg/dL (7-18); BUN/Creat Ratio 24.4 RATIO (10-20); Calcium,Total 8.8 mg/dL (8.5-10.1); Chloride 92 mmol/L (98-107); Creatinine, Serum 3.65 mg/dL (0.70-1.30); EST Glomerular Filtration Rate 18 mL/min (>60); Est Glom Filt Rate - Afr Amer 22 mL/min (>60); Estimated Creatinine Clearance 20.43 ml/min; Globulin 3.1 g/dL (2.2-4.2); Glucose 170 mg/dL (74-106); Potassium 5.3 mmol/L (3.5-5.1); Protein, Total 6.7 g/dL (6.4-8.2); Sodium Level 126 mmol/L (136-145)
[2024-03-28] MEDS: Isosorbide Mononitrate 30 MG Tablet PO (11:25)
[2024-03-28 13:58] LABS: Partial Thromboplast Time 45.4 Seconds (24.1-36.2)
[2024-03-28] MEDS: morphine (oral solution) 10MG/0.5ML Syringe 5 MG SL/PO ×2 (17:23→20:07)
--- NOTE | 2024-03-28 19:43 | CPS ---
RA 96%
[2024-03-28] MEDS: Ipratropium/Albuterol Sulfate 3 ML AMPUL.NEB INHALATION (19:44)
[2024-03-28 22:20] LABS: Partial Thromboplast Time 65.3 Seconds (24.1-36.2)
[2024-03-29] VITALS (7 sets, daily range): BP systolic 92–134; BP diastolic 62–96; PULSE 54–78; RESP 14–18; TEMP 36.1–36.6; O2SAT 96
[2024-03-29] MEDS: HEPARIN/D5w 25,000 UNITS 25,000 UNITS/250 ML IV.SOLN. 8 UNITS CONT INF (01:34)
[2024-03-29] MEDS: Amiodarone 200 MG Tablet PO ×2 (04:28→13:23)
[2024-03-29] MEDS: morphine (oral solution) 10MG/0.5ML Syringe 5 MG SL/PO ×3 (04:28→13:31)
[2024-03-29 04:50] LABS: Partial Thromboplast Time 79.4 Seconds (24.1-36.2)
[2024-03-29 04:56] LABS: ALB/GLOB Ratio 1.4 RATIO (0.9-2.4); AST(SGOT) 533 U/L (15-37); Alanine Aminotransfer ALT/SGPT 649 U/L (16-61); Albumin, Serum 3.5 g/dL (3.2-5.0); Alkaline Phosphatase 192 U/L (45-117); Anion Gap 16 (5-15); BUN 97 mg/dL (7-18); BUN/Creat Ratio 28.4 RATIO (10-20); Calcium,Total 8.6 mg/dL (8.5-10.1); Chloride 94 mmol/L (98-107); Creatinine, Serum 3.42 mg/dL (0.70-1.30); EST Glomerular Filtration Rate 19 mL/min (>60); Est Glom Filt Rate - Afr Amer 23 mL/min (>60); Globulin 2.5 g/dL (2.2-4.2); Glucose 193 mg/dL (74-106); Potassium 4.9 mmol/L (3.5-5.1); Sodium Level 127 mmol/L (136-145)
[2024-03-29] MEDS: Metoprolol Tartrate 25 MG Tablet PO ×2 (05:22→13:23)
[2024-03-29] MEDS: Ipratropium/Albuterol Sulfate 3 ML AMPUL.NEB INHALATION (09:09)
[2024-03-29] MEDS: LORazepam 0.5 MG Tablet PO (09:11)
--- NOTE | 2024-03-29 09:11 | CASEMGMT ---
Hospice consult was put in for patient. SW met with patient and confirmed he would like to talk with hospice. SW explained how the process works. Patient did not want anyone else present for the hospice meeting. LEEANNE called Hospice and spoke with Gloria on the referral line. LEEANNE also faxed referral. Sydni Ruff MSW [facility]
[2024-03-29] MEDS: guaiFENesin/D-Methorphan TAB.SR.12H 1 TABLET PO (09:13)
[2024-03-29] MEDS: Aspirin 81 MG TAB.CHEW PO (09:13)
[2024-03-29] MEDS: Pantoprazole Sodium 40 MG Tablet PO (09:13)
[2024-03-29] MEDS: Isosorbide Mononitrate 30 MG Tablet PO (09:13)
[2024-03-29] MEDS: predniSONE 20 MG Tablet 40 MG PO (09:13)
[2024-03-29] MEDS: Lidocaine 5% Patch 1 PATCH TOPICAL (09:14)
--- NOTE | 2024-03-29 09:27 | CASEMGMT ---
Updates sent to [facility]. Precert remains pending. Rosalind Peck DC Planning Asst.
--- NOTE | 2024-03-29 09:59 | PN.HOSP_ITS ---
Reason for Visit Reason for Visit: Diagnoses Hypo-osmolality and hyponatremia (03/23/24) Essential (primary) hypertension (03/23/24) Non-ST elevation (NSTEMI) myocardial infarction (03/23/24) Ischemic cardiomyopathy (03/23/24) Paroxysmal atrial fibrillation (03/23/24) Unspecified atrial fibrillation (03/23/24) Unspecified systolic (congestive) heart failure (03/23/24) Unspecified diastolic (congestive) heart failure (03/23/24) Acute on chronic combined systolic (congestive) and diastolic (congestive) heart failure (03/23/24) Chronic obstructive pulmonary disease with (acute) exacerbation (03/23/24) Acute kidney failure, unspecified (03/23/24) Chronic kidney disease, unspecified (03/23/24) Disorder of kidney and ureter, unspecified (03/23/24) Shortness of breath (03/23/24) Elevation of levels of liver transaminase levels (03/23/24) Abnormal levels of other serum enzymes (03/23/24) Tobacco use (03/23/24) Objective Data Objective Data Vital Signs: Vital Signs Temp Pulse Resp BP Pulse Ox O2 Del Method 98 F 78 14 115/96 H 96 Room Air 03/29/24 09:30 03/29/24 09:30 03/29/24 09:30 03/29/24 09:30 03/29/24 09:33 03/29/24 09:33 Oxygen Delivery Method Room Air Weight: 178 lb 5.663 oz Body Mass Index (BMI) 28.6 Intake & Output: Intake and Output for Last 24 Hours 03/27/24 03/28/24 03/29/24 23:59 23:59 23:59 Intake Total 584.6 / 704.6 439.58 / 439.58 511.83 / 511.83 Output Total 500 / 500 250 / 250 Balance 84.6 / 204.6 189.58 / 189.58 511.83 / 511.83 Lab / Micro Data 03/25/24 07:04 03/29/24 04:15 Labs: Laboratory Results - last 24 hr 03/28/24 04:32: Sodium 126 L, Potassium 5.3 H, Chloride 92 L, Carbon Dioxide 16.0 L, Anion Gap 18 H, BUN 89 H, Creatinine 3.65 H, Estim Creat Clear Calc 20.43, Est GFR (MDRD) Af Amer 22 L, Est GFR (MDRD) Non-Af 18 L, BUN/Creatinine Ratio 24.4 H, Glucose 170 H, Calcium 8.8, Total Bilirubin 1.90 H, AST 390 H, ALT 502 H, Alkaline Phosphatase 231 H, Total Protein 6.7, Albumin 3.6, Globulin 3.1, Albumin/Globulin Ratio 1.2 03/28/24 13:31: APTT 45.4 H 03/28/24 21:54: APTT 65.3 H 03/29/24 04:15: APTT 79.4 H, Sodium 127 L, Potassium 4.9, Chloride 94 L, Carbon Dioxide 17.0 L, Anion Gap 16 H, BUN 97 H, Creatinine 3.42 H, Estim Creat Clear Calc 21.80, Est GFR (MDRD) Af Amer 23 L, Est GFR (MDRD) Non-Af 19 L, B UN/Creatinine Ratio 28.4 H, Glucose 193 H, Calcium 8.6, Total Bilirubin 1.90 H, AST 533 H, ALT 649 H, Alkaline Phosphatase 192 H, Total Protein 6.0 L, Albumin 3.5, Globulin 2.5, Albumin/Globulin Ratio 1.4 Micro: Microbiology 03/23/24 08:34 Blood Culture (Wb) - Right Hand Blood Culture - Final No growth in 5 days. 03/23/24 06:38 Blood Culture (Wb) - Left Wrist Blood Culture - Final No growth in 5 days. 03/23/24 08:34 Urine, Clean Catch Urine Culture - Final Culture exhibits no growth. 03/23/24 08:34 Mucosa - Nose SARS-CoV-2, Influenza & RSV (PCR) - Final Rhythm Strip Rhythm Strip: A-fib Rate: 98 Physical Exam Narrative Seen and examined. Patient states he has end-stage COPD, longtime smoker. Also kidney failure and chronic heart disease Physical exam General: Alert, Oriented x3, Cooperative HEENT: Atraumatic, PERRLA, EOMI, Normocephalic Oral: No Gingival or Mucosal Lesions/ Ulcerations Neck: Supple, No JVD, Negative Carotid Bruits Chest wall/Lungs: Air entry diminished in bilateral lung bases. Mild expiratory rhonchi Cardiovascular: Regular rate, Regular Rhythm, Normal S1, Normal S2, No M/G/R Abdomen: Bowel Sounds Present, Soft, Non Tender, Non-Distended : No dysuria. Dark-colored urine no renal angle tenderness. No suprapubic tenderness. Extremities: mild 1+edema, Capillary Refill Less than 3 Seconds Skin: No rashes, No breakdown Musculoskeletal: No Tenderness to Palpation of Joints or Extremities Neurological: Cranial nerves II-XII grossly intact, DTR 2+/4. No acute focal neurological deficit. Psych/Mental Status: Flat affect Assessment & Plan Assessment/Plan (1) Paroxysmal atrial fibrillation: PLAN: A-fib with RVR Patient received 2 doses of IV metoprolol in the emergency room and did not have a significant improvement of his heart rate. on amiodarone gtt then to be switched to PO amiodarone 200 TID for 5 days, then 200 BID for 1 month. DC digoxin and carvedilol. Add metoprolol Cardiology recommending heparin drip which has been initiated. Unable to DOACs until kidney function improves (Cr will need to be less than 2.5 (2) COPD exacerbation: PLAN: Improved. Dc methylpred. Start prednisone. (3) NSTEMI, initial episode of care: PLAN: Most likely type II, demand ischemia, given the atrial fibrillation with RVR. Troponin initially 343. Will monitor for now. Patient anticoagulate with heparin drip. (4) Transaminitis: PLAN: Ongoing. May be due to passive congestion, but cannot rule out overall decompensation. Will monitor for now. US showed hepatomegaly. Improving. stop statin. likely not the primary cause, but complicating (5) Hyponatremia: PLAN: May be due to volume depletion with diuresis Check studies. Monitor. (6) HFrEF (heart failure with reduced ejection fraction): PLAN: Chronic. No in acute exacerbation. (7) Acute kidney injury: PLAN: 2/2 overdiuresis. overall improving since discontinuing furosemide, but worse today despite no diuresis PLAN: Plan Anxiety: complicates care and recovery. Palliation is in order. Increase frequency of PRN lorazepam. VTE prophylaxis: Not indicated as patient is anticoagulated. CODE STATUS: Without me even prompting, patient states that he wants to be comfy. Clarified with the patient that he wishes to be DNR Comfort Care arrest no intubation. Advance care planning: Spent additional 20 minutes where I discussed with the patient about his deterioration of his kidney function as well as his ongoing transaminitis. I told him I could not rule out overall decompensation overall. But given his issues with anxiety, that he is with no children, I recommended hospice for focusing on management of his symptoms and the emphasizing overall medical care. He seemed open to that and would be willing to speak with hospice. I feel that with his severe cardiomyopathy and his worsening kidney function and ongoing transaminitis, his long-term prognosis is poor.
--- NOTE | 2024-03-29 10:39 | CASEMGMT ---
Hospice called SW and scheduled a time to come and meet with patient. A nurse will be at [facility] between 1130 and noon. SW went to notify patient, but he was sleeping and did not wake up. SW will check back again in a little bit. SW notified patient's ROOM SERVICE ASSOCIATE. Hospice to meet with patient today between 1130-noon. Sydni HENDRICKS
--- NOTE | 2024-03-29 11:52 | CASEMGMT ---
Hospice is here to talk with patient. 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
--- NOTE | 2024-03-29 15:05 | DS.PCM_ITS ---
Providers Date of Admission: 03/23/24 Date of Discharge: 03/29/24 Primary Care Physician: Dr. Kojo Rondon MD Consultations 03/28/24 14:45 Consult: Hospice / Palliative Care Routine Consulting Provider: [facility] Reason for Consult: end of life care EMERGENT Consult: No Notified: Yes Date Notified: 03/29/24 Time Notified: 10:14 Method of Notification: per high school social science teacher 03/29/24 10:01 Consult: Nephrology Routine Consulting Provider: Hamida Corcoran Reason for Consult: SAGAR on CKD4 EMERGENT Consult: No Notified: Yes Date Notified: 03/29/24 Time Notified: 10:02 Method of Notification: Text Reason For Visit: AFIB RVR Diagnosis Discharge Diagnosis (1) Paroxysmal atrial fibrillation: Status: Acute Code(s): I48.0 - Paroxysmal atrial fibrillation Plan: 64-year-old male with multiple comorbidities including heart failure EF 10% in 2023 admitted with generalized weakness and shortness of breath. Dyspnea on exertion on short distance walking. He was found in A-fib with RVR. A-fib with RVR Patient received 2 doses of IV metoprolol in the emergency room and did not have a significant improvement of his heart rate. on amiodarone gtt then to be switched to PO amiodarone 200 TID for 5 days, then 200 BID for 1 month. DC digoxin and carvedilol. On metoprolol Cardiology recommending heparin drip which has been initiated. Unable to DOACs because of poor kidney function 2D echo shows EF 10%, severe global hypokinesis of left ventricle, evidence of diastolic dysfunction. Moderate biatrial dilatation. Moderate 2+ MR. Moderately dilated LV. Patient opted for hospice care. Multiple cardiac and pulmonary conditions including CAD with stent, hypertension, dyslipidemia, heart failure with 10% EF, COPD, ischemic cardiomyopathy. (2) COPD exacerbation: Status: Chronic Code(s): J44.1 - Chronic obstructive pulmonary disease with (acute) exacerbation Plan: Improved. Dc methylpred. Start prednisone. (3) NSTEMI, initial episode of care: Status: Acute Code(s): I21.4 - Non-ST elevation (NSTEMI) myocardial infarction Plan: Most likely type II, demand ischemia, given the atrial fibrillation with RVR. Troponin initially 343. Will monitor for now. Patient anticoagulate with heparin drip. (4) Transaminitis: Status: Acute Code(s): R74.01 - Elevation of levels of liver transaminase levels Plan: Ongoing. May be due to passive congestion, but cannot rule out overall decompensation. Will monitor for now. US showed hepatomegaly. Improving. stop statin. likely not the primary cause, but complicating (5) Hyponatremia: Status: Acute Code(s): E87.1 - Hypo-osmolality and hyponatremia Plan: May be due to volume depletion with diuresis Check studies. Monitor. (6) HFrEF (heart failure with reduced ejection fraction): Status: Acute Code(s): I50.20 - Unspecified systolic (congestive) heart failure Plan: Chronic. No in acute exacerbation. (7) Acute kidney injury: Status: Acute Code(s): N17.9 - Acute kidney failure, unspecified Plan: 2/2 overdiuresis. overall improving since discontinuing furosemide, but worse today despite no diuresis Plan Anxiety: complicates care and recovery. Palliation is in order. Increase frequency of PRN lorazepam. VTE prophylaxis: Not indicated as patient is anticoagulated. Living will/advanced directive/end of life care: Patient does not have living will or advanced directive. He does not attend [facility] power of immigration attorney for [facility]. After discussion of benefits/risks procedures involved with full code, DNR CC arrest and DNR CC, the patient opted for DNR CC hospice care. Hospice nurse was called. CODE STATUS changed to hospice care. Patient went to inpatient hospice unit. Patientn't does want artificial life support including intubation, tube feed, ventilator and/chest compression, central venous catheter, vasopressor and DC shock if needed Total time spent in [id number] encounter in discussion of advanced directive 17 minutes. Medications at Discharge Home Medications albuterol sulfate 90 mcg/actuation aerosol inhaler 2 puff inhalation Q4H PRN sob 11/13/22 aspirin 81 mg chewable tablet 81 mg PO DAILY heart health 11/13/22 carvedilol 6.25 mg tablet 6.25 mg PO BID hr 11/13/22 rosuvastatin 10 mg tablet 10 mg PO DAILY cholesterol 11/13/22 furosemide 20 mg tablet (Lasix) 20 mg PO DAILY PRN weight gain 1 month #30 tabs 02/08/24 isosorbide mononitrate 30 mg tablet,extended release 24 hr 30 mg PO DAILY 30 days #30 tabs 02/08/24 pantoprazole 40 mg tablet,delayed release 40 mg PO DAILY 30 days #30 tabs 02/08/24 albuterol sulfate 2.5 mg/3 mL (0.083 %) solution for nebulization 2.5 mg inhalation Q6H PRN sob 03/26/24 guaifenesin 1,200 mg tablet, extended release 12 hr (Mucinex) 1,200 mg PO Q12H cough 03/26/24 Physical Exam Narrative Seen and examined. Patient is fatigue. Denies chest pain or acute shortness of breath at rest. He states he wants hospice care. Physical exam General: Alert, Oriented x3, Cooperative. BMI 28.7 kg/m? HEENT: Atraumatic, PERRLA, EOMI, Normocephalic Oral: Oral mucosa dry. No Gingival or Mucosal Lesions/ Ulcerations Neck: Supple, No JVD, Negative Carotid Bruits Chest wall/Lungs: Air entry diminished in bilateral lung bases. Bilateral expiratory rhonchi Cardiovascular: Regular rate, Regular Rhythm, Normal S1, Normal S2, systolic murmur Abdomen: Bowel Sounds Present, Soft, Non Tender, Non-Distended : No dysuria. No renal angle tenderness. No suprapubic tenderness. Extremities: Mild 1+ edema, Capillary Refill Less than 3 Seconds Skin: No rashes, No breakdown Musculoskeletal: No Tenderness to Palpation of Joints or Extremities. ROM limited Neurological: Cranial nerves II-XII grossly intact, DTR 2+/4. No acute focal neurological deficit. Psych/Mental Status: Flat affect. Weight / BMI Weight Weight: 178 lb 5.663 oz Body Mass Index (BMI) 28.6 ABG / Lab / Microbiology Data 03/25/24 07:04 03/29/24 04:15 Laboratory: Laboratory Results - last 24 hr 03/28/24 21:54: APTT 65.3 H 03/29/24 04:15: APTT 79.4 H, Sodium 127 L, Potassium 4.9, Chloride 94 L, Carbon Dioxide 17.0 L, Anion Gap 16 H, BUN 97 H, Creatinine 3.42 H, Estim Creat Clear Calc 21.80, Est GFR (MDRD) Af Amer 23 L, Est GFR (MDRD) Non-Af 19 L, B UN/Creatinine Ratio 28.4 H, Glucose 193 H, Calcium 8.6, Total Bilirubin 1.90 H, AST 533 H, ALT 649 H, Alkaline Phosphatase 192 H, Total Protein 6.0 L, Albumin 3.5, Globulin 2.5, Albumin/Globulin Ratio 1.4 03/29/24 11:36: APTT 56.0 H Microbiology: Microbiology 03/23/24 08:34 Blood Culture (Wb) - Right Hand Blood Culture - Final No growth in 5 days. 03/23/24 06:38 Blood Culture (Wb) - Left Wrist Blood Culture - Final No growth in 5 days. 03/23/24 08:34 Urine, Clean Catch Urine Culture - Final Culture exhibits no growth. 03/23/24 08:34 Mucosa - Nose SARS-CoV-2, Influenza & RSV (PCR) - Final D/C Instructions DC O2, CPAP, BIPAP Needs Home O2 Discharge instructions: No Meaningful Use Info Meaningful Use Meaningful Use Diagnoses (Choose all that apply): None applicable Ischemic Stroke Statin Dosing Therapy Reference: STATIN DOSE THERAPY REFERENCE: * Patients > 75 years receive moderate or high dose statin therapy. * Patients 75 years or YOUNGER should receive HIGH intensity statin dose unless contraindicated. You will be required to document reason for non-treatment if statin daily dose does not meet guidelines. HIGH DOSE STATIN THERAPY DAILY Atorvastatin > than or = to 40 mg Rosuvastatin > than or = to 20 mg Amlodipine + Atorvastatin > than or = to 2.5/40 mg Ezetimibe + Simvastatin 10/80 mg Simvastatin 80mg Discharge Plan Admission Admit Date/Time: 03/23/24 08:17 Primary Reason for Your Visit: Severe heart failure Attending Provider: Gustavo Wilcox Primary Care Provider: Kojo Rondon Consulting Providers: Angel Lawton; Alcides Carter; Ashley Cole; Kateryna Calvillo; Payton Cao; Merline Connelly NP; Alejandrina Stanley; Hamida Corcoran Discharge Orders/Prescriptions Prescriptions: No Action albuterol sulfate 90 mcg/actuation HFA aerosol inhaler 2 puff inhalation Q4H PRN (Reason: sob) aspirin 81 mg tablet,chewable 81 mg PO DAILY carvedilol 6.25 mg tablet 6.25 mg PO BID Rx Instructions: must administer with a meal/food rosuvastatin 10 mg tablet 10 mg PO DAILY guaifenesin [Mucinex] 1,200 mg tablet extended release 12hr 1,200 mg PO Q12H albuterol sulfate 2.5 mg /3 mL (0.083 %) solution for nebulization 2.5 mg inhalation Q6H PRN (Reason: sob) Patient Comments: Take 3 mL (2.5 mg) by nebulization every 6 hours as needed for wheezing. pantoprazole 40 mg Tablet,Delayed Release (Dr/Ec) 40 mg PO DAILY 30 Days Qty: 30 0RF furosemide [Lasix] 20 mg tablet 20 mg PO DAILY PRN (Reason: weight gain) 30 Days Qty: 30 0RF Rx Instructions: leg swelling isosorbide mononitrate 30 mg tablet extended release 24 hr 30 mg PO DAILY 30 Days Qty: 30 0RF Rx Instructions: Hold for SBP less than 130 mmHg Referrals / Follow Up: Kojo Rondon MD [Primary Care Provider] - Disposition Disposition (needs filled in before D/C Order can be placed): Hospice in Medical Facility Charges/Coding Visit Charges Inpatient E&M: 89962 Disch Hosp >30min
--- NOTE | 2024-03-29 15:28 | CASEMGMT ---
LEEANNE notified [facility] that patient is going to the inpatient Hospice unit. Plan: d/c to inpatient Hospice Sydni HENDRICKS
== END 2024-03-29 15:53 | disposition hospice, inpatient (51) | DRG 201 ==
LOC: ED 08:05 → PCU 09:04 → MS2 11:55 → PCU 03-24 04:33
PROVIDERS: Internal Medicine; Emergency Provider Emergency Medicine; PCP Family Medicine; Visit Provider Internal Medicine
DX: I48.0 Paroxysmal atrial fibrillation (principal); J44.1 Chronic obstructive pulmonary disease with (acute) exacerbation; K76.1 Chronic passive congestion of liver; E87.1 Hypo-osmolality and hyponatremia; N17.9 Acute kidney failure, unspecified; Z66 Do not resuscitate; I21.A1 Myocardial infarction type 2; N18.30 Chronic kidney disease, stage 3 unspecified; I13.0 Hypertensive heart and chronic kidney disease with heart failure and stage 1 through stage 4 chronic kidney disease, or unspecified chronic kidney disease; I25.5 Ischemic cardiomyopathy; E78.2 Mixed hyperlipidemia; I25.10 Atherosclerotic heart disease of native coronary artery without angina pectoris; F17.210 Nicotine dependence, cigarettes, uncomplicated; I50.22 Chronic systolic (congestive) heart failure; F41.9 Anxiety disorder, unspecified; F10.90 Alcohol use, unspecified, uncomplicated; R74.01 Elevation of levels of liver transaminase levels; Z95.5 Presence of coronary angioplasty implant and graft; Z79.82 Long term (current) use of aspirin; Z79.899 Other long term (current) drug therapy
CPT/HCPCS: 36415; 71045; 71046; 76705; 80053; 81001; 82077; 82533; 82570; 83605; 83880; 83930; 83935; 84300; 84443; 84484; 84540; 85025; 85610; 85730; 87040; 87086; 87631; 93005; 93306; 94640; 97162; 97166; 97530; 97535; 99285; A4216; J1940; J2405